=== PATIENT | male | born 1970 | race Caucasian/White ===

== ENCOUNTER 2016-10-26 15:30 | Emergency (ER) | payer SELFPAY ==
[~2016-10-26] VITALS: Ht 180.3 cm; Wt 105.0 kg
[~2016-10-26 15:30] MED LIST: AUGM875T PO; IBUP600 PO; NOVONP2 SQ; NOVORP2 SQ
[2016-10-26 15:32] VITALS: BP 140/91; PULSE 104; RESP 16; TEMP 98.4; O2SAT 98
[2016-10-26] MEDS ORDERED: SODIUM CHLORIDE 0.9% FLUSH 10 ML FLUSH IVF PRN (16:00)
[2016-10-26] MEDS ORDERED: ACETAMINOPHEN 325 MG TAB PO ONE (16:00)
[2016-10-26] MEDS ORDERED: diphenhydrAMINE HCL 50 MG/ML VIAL IVP ONE (16:00)
[2016-10-26] MEDS ORDERED: PROCHLORPERAZINE INJ 10 MG/2 ML VIAL IVP ONE (16:00)
[2016-10-26] MEDS ORDERED: NOVONP2 SQ (16:01)
[2016-10-26] MEDS ORDERED: PROM25TA10 PO (17:03)
--- NOTE | 2016-10-26 17:03 | PD ---
HPI Chief Complaint: Headache Time Seen by Provider: 15:54 Travel History International Travel<30 days: No Contact w/Intl Traveler<30days: No Traveled to known affect area: No History of Present Illness HPI 46 yo M hx migraines and glaucoma arrives complaining of headache for approximately 5 hours, onset gradual, timing constant. Cephalgia location: mid anterior scalp and R eye. Severity: severe. Associated symptoms include vomiting. Pain is similar to prior episodes however more severe than usual. No stiffness of the neck. No fever. PFSH Past Medical History Asthma: Yes ( A CHILD) Autoimmune Disease: No Anxiety: Yes Depression: Yes Cardiovascular Problems: No Chest Pain: Yes (05/28/13) Diabetes: Yes Patient Takes Glucophage: No Diminished Hearing: No Endocrine: Yes Gastrointestinal Disorders: Yes (occ reflux) Genitourinary: No Headaches: Yes (SINUS HEADACHES) Hepatitis: No Hiatal Hernia: No Hypertension: Yes Immune Disorder: No Implanted Vascular Access Dvce: No Kidney Stones: Yes Musculoskeletal: Yes ( neuropathy) Neurologic: Yes Psychiatric: No Reproductive: Yes (scrotal lesions) Respiratory: Yes (asthma as a child) Integumentary: Yes (Cellulitis) Immunizations Current: Yes Thyroid Disease: No Influenza Vaccination: No Past Surgical History Insulin Pump: No Joint Replacement: No Pacemaker: No Other Surgery: Yes Social History Alcohol Use: No Tobacco Use: No Substance Use: No Allergies-Medications (Allergen,Severity, Reaction): Coded Allergies: erythromycin base (Unverified Allergy, Severe, RASH, 09/29/16) shortness of breath latex (Unverified Allergy, Severe, RASH, 09/29/16) shortness of breath Reported Meds & Prescriptions Reported Meds & Active Scripts Active Phenergan (Promethazine HCl) 25 Mg Tablet 25 Mg PO Q6H PRN Reported Novolin N Inj (Insulin Human NPH) 1,000 Unit/10 Ml Vial 25 Units SQ BID Review of Systems Except as stated in HPI: all other systems reviewed are Neg Physical Exam Narrative GENERAL: 46 yo M, WNWD, mild distress 2/2 pain SKIN: Warm and dry. HEAD: Atraumatic. Normocephalic. EYES: R pupil fixed dilated, cloudy. L pupil reactive to light. ENT: No nasal bleeding or discharge. Mucous membranes pink and moist. NECK: Trachea midline. No JVD. NEUROLOGICAL: Awake and alert. No obvious cranial nerve deficits. Motor grossly within normal limits. Five out of 5 muscle strength in the arms and legs. Normal speech. PSYCHIATRIC: Appropriate mood and affect; insight and judgment normal. Data Data Last Documented VS Vital Signs Date Time Temp Pulse Resp B/P (MAP) Pulse Ox O2 Delivery O2 Flow Rate FiO2 10/26/16 17:52 10/26/16 15:32 98.4 104 16 98 VS reviewed Orders Orders Ecg Monitoring (10/26/16 15:54) Iv Access Insert/Monitor (10/26/16 15:54) Oximetry (10/26/16 15:54) Sodium Chloride 0.9% Flush (Ns Flush) (10/26/16 16:00) Acetaminophen (Tylenol) (10/26/16 16:00) Prochlorperazine Inj (Compazine Inj) (10/26/16 16:00) Diphenhydramine Inj (Benadryl Inj) (10/26/16 16:00) Promethazine (Phenergan) (10/26/16 17:30) MDM Medical Decision Making Medical Screen Exam Complete: Yes Emergency Medical Condition: Yes Medical Record Reviewed: Yes Differential Diagnosis SAH, aneurysm, migraine, glaucoma, cavernous sinus thrombosis Narrative Course Abortive therapy given with good effect. Pt ready for discharge. Diagnosis Primary Impression: Cephalgia Qualified Codes: R51 - Headache Referrals: Primary Care Physician 2 days Additional Instructions: You have a choice when it comes to health care, and we are glad that you chose [facility]. Hopefully, we have met your expectations on today's visit. You are welcome to return to [facility] at any time, as we are committed to meeting the health care needs of our community. Med/Other Pt SpecificInfo: Prescription(s) given Scripts Promethazine (Phenergan) 25 Mg Tablet 25 MG PO Q6H Y for NAUSEA OR VOMITING, #15 TAB 0 Refills Prov: Vince Durán MD 10/26/16 Disposition: 01 DISCHARGE HOME Condition: Stable Vince Durán MD Oct 26, 2016 17:03
[2016-10-26] MEDS ORDERED: PROMETHAZINE HCL 25 MG TAB PO ONE (17:30)
== END 2016-10-26 17:52 | disposition home or self-care (01) ==
LOC: NEPK 15:30
DX: R51 Headache (principal); J45.909 Unspecified asthma, uncomplicated; F41.9 Anxiety disorder, unspecified; F32.9 Major depressive disorder, single episode, unspecified; K21.9 Gastro-esophageal reflux disease without esophagitis; I10 Essential (primary) hypertension; E11.40 Type 2 diabetes mellitus with diabetic neuropathy, unspecified; H40.9 Unspecified glaucoma; Z79.4 Long term (current) use of insulin
CPT/HCPCS: 96374; 96375; 99284; J0780; J1200; Q0169

== ENCOUNTER 2017-01-24 08:13 | Emergency (ER) | payer SELFPAY ==
[~2017-01-24] VITALS: Ht 180.3 cm; Wt 105.0 kg
[~2017-01-24 08:13] MED LIST changes: -AUGM875T PO; -IBUP600 PO; -NOVORP2 SQ; +PROM25TA10 PO
[2017-01-24 08:17] VITALS: BP 180/111; PULSE 96; RESP 14; TEMP 98.7; O2SAT 99
[2017-01-24 08:35] VITALS: BP 181/98; PULSE 93
[2017-01-24] MEDS ORDERED: CEPHALEXIN MONOHYDRATE 500 MG CAP PO ONE (08:45)
[2017-01-24] MEDS ORDERED: CLINDAMYCIN INJ 900 MG in SODIUM CHLORIDE 0.9% INJ 100 ML IV ONE (08:45)
[2017-01-24] MEDS ORDERED: SULFAMETHOXAZOLE-TRIMETHOPRIM DS 800-160 MG TAB PO ONE (08:45)
--- NOTE | 2017-01-24 08:58 | RADRPT ---
EXAM DATE/TIME: 01/24/2017 08:44 [facility] COMPARISON: No previous studies available for comparison. INDICATIONS : Possible foot infestion. Patient states a sore appeared yesterday on the top of his foot. MEDICAL HISTORY : Diabetes mellitus type II. Gastroesophageal reflux disease. Neuropathy. SURGICAL HISTORY : None. ENCOUNTER: Initial ACUITY: 2 days PAIN SCORE: 0/10 LOCATION: Right foot. FINDINGS: Lateral view shows swelling and ulceration of the soft tissues dorsally in the region of the midfoot and forefoot. I don't see a radiopaque foreign body. No fracture, subluxation or perceptible bone babatunde truction. Small enthesophyte seen of the Achilles insertion. CONCLUSION: Dorsal soft tissue swelling and apparent ulceration without acute bony abnormality. Mikey Garrett MD on January 24, 2017 at 8:56 Board Certified Radiologist. This report was verified electronically.
[2017-01-24] MEDS ORDERED: CLINDAMYCIN 900 MG/NS PREMIX 50 ML IV ONE (09:00)
[2017-01-24 09:13] LABS: AUTOMATED NEUTROPHIL # 4.6 TH/MM3 (1.8-7.7); BASOPHIL # 0.1 TH/MM3 (0-0.2); BASOPHIL % 1.2 % (0.0-2.0); EOSINOPHIL # 0.4 TH/MM3 (0-0.4); EOSINOPHIL % 5.8 % (0.0-4.0); HEMATOCRIT 42.8 % (39.0-51.0); HEMO FLAGS DIFF FINAL; LYMPH % 22.2 % (9.0-44.0); LYMPHOCYTE # 1.6 TH/MM3 (1.0-4.8); MEAN CELL VOLUME 90.4 FL (80.0-100.0); MEAN CORPUSCULAR HEMOGLOBIN 31.1 PG (27.0-34.0); MEAN CORPUSCULAR HGB CONC 34.4 % (32.0-36.0); NEUT % 62.8 % (16.0-70.0); PLATELET COUNT 176 TH/MM3 (150-450); RED BLOOD COUNT 4.74 MIL/MM3 (4.50-5.90); RED CELL DISTRIBUTION WIDTH 13.4 % (11.6-17.2); WHITE BLOOD COUNT 7.3 TH/MM3 (4.0-11.0)
[2017-01-24 09:29] LABS: BICARBONATE 20.8 MEQ/L (21.0-32.0); POTASSIUM 4.4 MEQ/L (3.5-5.1)
[2017-01-24] MEDS ORDERED: INSULIN HUMAN REGULAR 1,000 UNITS/10 ML VIAL IV PUSH ONE (09:45)
[2017-01-24] MEDS ORDERED: SODIUM CHLOR 0.9% 1000 ML INJ 1,000 ML IV ONE ×2 (09:45)
[2017-01-24] MEDS ORDERED: CEPH-460 PO (10:02)
[2017-01-24] MEDS ORDERED: BACT800T5 PO (10:02)
--- NOTE | 2017-01-24 10:03 | PD ---
HPI Chief Complaint: Skin Problem Time Seen by Provider: 08:23 Travel History International Travel<30 days: No Contact w/Intl Traveler<30days: No Traveled to known affect area: No History of Present Illness HPI 46-year-old male history of diabetes arrives complaining of a rash overlying the dorsum of the right foot. He noticed minimal erythema 2 days ago and worsening erythema last night and then fairly marked skin changes this morning prompting the ER evaluation. He reports baseline polyuria polydipsia due to noncompliance with insulin due to lack of insurance/follow-up. He has no fever. 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 PFSH Past Medical History Asthma: Yes ( A CHILD) Autoimmune Disease: No Anxiety: Yes Depression: Yes Cardiovascular Problems: No Chest Pain: Yes (05/28/13) Diabetes: Yes Patient Takes Glucophage: No Diminished Hearing: No Endocrine: Yes Gastrointestinal Disorders: Yes (occ reflux) Genitourinary: No Headaches: Yes (SINUS HEADACHES) Hepatitis: No Hiatal Hernia: No Hypertension: Yes Immune Disorder: No Implanted Vascular Access Dvce: No Kidney Stones: Yes Musculoskeletal: Yes ( neuropathy) Neurologic: Yes Psychiatric: No Reproductive: Yes (scrotal lesions) Respiratory: Yes (asthma as a child) Integumentary: Yes (Cellulitis) Immunizations Current: Yes Thyroid Disease: No Influenza Vaccination: No Past Surgical History Insulin Pump: No Joint Replacement: No Pacemaker: No Other Surgery: Yes (debridment) Social History Alcohol Use: No Tobacco Use: No Substance Use: No Allergies-Medications (Allergen,Severity, Reaction): Coded Allergies: erythromycin base (Unverified Allergy, Severe, RASH, 01/24/17) shortness of breath latex (Unverified Allergy, Severe, RASH, 01/24/17) shortness of breath Reported Meds & Prescriptions Reported Meds & Active Scripts Active No Active Prescriptions or Reported Medications Review of Systems Except as stated in HPI: all other systems reviewed are Neg General / Constitutional: No: Fever Physical Exam Narrative GENERAL: 46-year-old male well-nourished well-developed SKIN: Warm and dry. Approximately 10 cm x 5 cm of erythema with some ulceration overlying the dorsum of the right foot. No crepitus. HEAD: Atraumatic. Normocephalic. EYES: Pupils equal and round. No scleral icterus. No injection or drainage. ENT: No nasal bleeding or discharge. Mucous membranes pink and moist. NECK: Trachea midline. No JVD. CARDIOVASCULAR: Regular rate and rhythm. 2+ dorsalis pedis bilaterally. RESPIRATORY: No accessory muscle use. Clear to auscultation. Breath sounds equal bilaterally. GASTROINTESTINAL: Abdomen soft, non-tender, nondistended. Hepatic and splenic margins not palpable. MUSCULOSKELETAL: Extremities without clubbing, cyanosis, or edema. No obvious deformities. NEUROLOGICAL: Awake and alert. No obvious cranial nerve deficits. Motor grossly within normal limits. Five out of 5 muscle strength in the arms and legs. Normal speech. PSYCHIATRIC: Appropriate mood and affect; insight and judgment normal. Data Data Last Documented VS Vital Signs Date Time Temp Pulse Resp B/P (MAP) Pulse Ox O2 Delivery O2 Flow Rate FiO2 01/24/17 08:35 93 181/98 (125) 01/24/17 08:17 98.7 14 99 Vital signs reviewed Orders Orders Basic Metabolic Panel (Bmp) (01/24/17 08:31) Complete Blood Count With Diff (01/24/17 08:31) Wound Culture And Gram Stain (01/24/17 08:31) Iv Access Insert/Monitor (01/24/17 08:31) Foot, Limited (2vws) (01/24/17 ) Sulfamet-Trimeth Ds 800-160 Mg (Bactrim (01/24/17 08:45) Cephalexin (Keflex) (01/24/17 08:45) Clindamycin 900 Mg/Ns Premix (Cleocin 90 (01/24/17 09:00) Sodium Chlor 0.9% 1000 Ml Inj (Ns 1000 M (01/24/17 09:45) Sodium Chlor 0.9% 1000 Ml Inj (Ns 1000 M (01/24/17 09:45) Insulin Human Regular Inj (Novolin R Inj (01/24/17 09:45) Labs Laboratory Tests Test 01/24/17 08:45 White Blood Count 7.3 TH/MM3 Red Blood Count 4.74 MIL/MM3 Hemoglobin 14.8 GM/DL Hematocrit 42.8 % Mean Corpuscular Volume 90.4 FL Mean Corpuscular Hemoglobin 31.1 PG Mean Corpuscular Hemoglobin Concent 34.4 % Red Cell Distribution Width 13.4 % Platelet Count 176 TH/MM3 Mean Platelet Volume 10.4 FL Neutrophils (%) (Auto) 62.8 % Lymphocytes (%) (Auto) 22.2 % Monocytes (%) (Auto) 8.0 % Eosinophils (%) (Auto) 5.8 % Basophils (%) (Auto) 1.2 % Neutrophils # (Auto) 4.6 TH/MM3 Lymphocytes # (Auto) 1.6 TH/MM3 Monocytes # (Auto) 0.6 TH/MM3 Eosinophils # (Auto) 0.4 TH/MM3 Basophils # (Auto) 0.1 TH/MM3 CBC Comment DIFF FINAL Differential Comment Blood Urea Nitrogen 18 MG/DL Creatinine 0.77 MG/DL Random Glucose 425 MG/DL Calcium Level 8.4 MG/DL Sodium Level 134 MEQ/L Potassium Level 4.4 MEQ/L Chloride Level 103 MEQ/L Carbon Dioxide Level 20.8 MEQ/L Anion Gap 10 MEQ/L Estimat Glomerular Filtration Rate 109 ML/MIN MDM Medical Decision Making Medical Screen Exam Complete: Yes Emergency Medical Condition: Yes Medical Record Reviewed: Yes Differential Diagnosis Cellulitis, abscess, necrotizing fasciitis, hyperglycemia Narrative Course CBC & BMP Diagram 01/24/17 08:45 Calcium Level 8.4 L Last 24 hours Impressions Foot X-Ray 01/24/17 0000 Signed Impressions: Service Date/Time: Tuesday, January 24, 2017 08:44 - CONCLUSION: Dorsal soft tissue swelling and apparent ulceration without acute bony abnormality. Mikey Garrett MD Patient has fairly impressive cellulitis of the right foot over the dorsal aspect. No evidence of abscess or necrotizing fasciitis. Patient will receive Bactrim and Keflex. Blood glucose is quite high at 425. 2 L IV saline followed by insulin finger stick recheck with plan discharge thereafter. Diagnosis Primary Impression: Diabetes Qualified Codes: E11.628 - Type 2 diabetes mellitus with other skin complications Additional Impressions: Peripheral neuropathy Qualified Codes: G62.9 - Polyneuropathy, unspecified Cellulitis of foot, right Referrals: [facility] 2 days Med/Other Pt SpecificInfo: Prescription(s) given Scripts Cephalexin (Keflex) 500 Mg Cap 500 MG PO Q8H for Infection, #30 CAP 0 Refills Prov: Vince Durán MD 01/24/17 Sulfamethoxazole-Trimethoprim (Bactrim DS) 800-160 Mg Tab 1 TAB PO BID for Infection, #20 TAB 0 Refills Prov: Vince Durán MD 01/24/17 Disposition: 01 DISCHARGE HOME Condition: Stable Vince Durán MD Jan 24, 2017 10:03
== END 2017-01-24 11:45 | disposition home or self-care (01) ==
LOC: NEPC 08:13
DX: E11.42 Type 2 diabetes mellitus with diabetic polyneuropathy (principal); L03.115 Cellulitis of right lower limb; J45.909 Unspecified asthma, uncomplicated; I10 Essential (primary) hypertension; K21.9 Gastro-esophageal reflux disease without esophagitis; F41.9 Anxiety disorder, unspecified; F32.9 Major depressive disorder, single episode, unspecified; Z87.442 Personal history of urinary calculi; Z88.1 Allergy status to other antibiotic agents
CPT/HCPCS: 73620; 80048; 85025; 86403; 87070; 96361; 96365; 96375; 99284; J1815; J7030

== ENCOUNTER 2017-02-23 12:06 | Emergency (ER) | payer SELFPAY ==
[~2017-02-23 12:06] MED LIST changes: +BACT800T5 PO; +CEPH-460 PO; -NOVONP2 SQ; -PROM25TA10 PO
[2017-02-23 12:09] VITALS: BP 165/83; PULSE 119; RESP 12; TEMP 98.7; O2SAT 95
--- NOTE | 2017-02-23 13:56 | PD ---
HPI Chief Complaint: Skin Problem Time Seen by Provider: 13:33 Travel History International Travel<30 days: No Contact w/Intl Traveler<30days: No Traveled to known affect area: No History of Present Illness HPI 46-year-old diabetic male presents to the ED for evaluation of 4 day history of pain and swelling of a known sebaceous cyst on the posterior aspect of the neck. Pain is rated at 4/10, described as constant, worsened by moving the neck. No alleviating factors reported. He denies fevers, chills, nausea, vomiting, headaches, difficulties with ROM of the neck. He states that he was recently treated for a bout of cellulitis with Bactrim and Keflex. He states that this arose about a week after that. He denies history of MRSA. No treatment attempt at home. PFSH Past Medical History Asthma: Yes ( A CHILD) Autoimmune Disease: No Anxiety: Yes Depression: Yes Cardiovascular Problems: No Chest Pain: Yes (05/28/13) Diabetes: Yes Patient Takes Glucophage: No Diminished Hearing: No Endocrine: Yes Gastrointestinal Disorders: Yes (occ reflux) Genitourinary: No Headaches: Yes (SINUS HEADACHES) Hepatitis: No Hiatal Hernia: No Hypertension: Yes Immune Disorder: No Implanted Vascular Access Dvce: No Kidney Stones: Yes Musculoskeletal: Yes ( neuropathy) Neurologic: Yes Psychiatric: No Reproductive: Yes (scrotal lesions) Respiratory: Yes (asthma as a child) Integumentary: Yes (Cellulitis) Immunizations Current: Yes Thyroid Disease: No Tetanus Vaccination: < 5 Years Past Surgical History Insulin Pump: No Joint Replacement: No Pacemaker: No Other Surgery: Yes (debridment) Social History Alcohol Use: No Tobacco Use: No Substance Use: No Allergies-Medications (Allergen,Severity, Reaction): Coded Allergies: erythromycin base (Unverified Allergy, Severe, RASH, 02/23/17) shortness of breath latex (Unverified Allergy, Severe, RASH, 02/23/17) shortness of breath Reported Meds & Prescriptions Reported Meds & Active Scripts Active Keflex (Cephalexin) 500 Mg Cap 500 Mg PO Q8H Bactrim DS (Sulfamethoxazole-Trimethoprim) 800-160 Mg Tab 1 Tab PO BID Review of Systems Except as stated in HPI: all other systems reviewed are Neg Physical Exam Narrative GENERAL: Well-nourished, well-developed patient. SKIN: Focused skin assessment warm/dry. SKIN: There is an indurated area in the right posterior neck which measures about 2 cm in diameter. It is fluctuant but there is no pointing or drainage. There is a zone of inflammation around it but no lymphangitis. HEAD: Normocephalic. EYES: No scleral icterus. No injection or drainage. NECK: Supple, trachea midline. No JVD or lymphadenopathy. CARDIOVASCULAR: Regular rate and rhythm without murmurs, gallops, or rubs. RESPIRATORY: Breath sounds equal bilaterally. No accessory muscle use. GASTROINTESTINAL: Abdomen soft, non-tender, nondistended. MUSCULOSKELETAL: No cyanosis, or edema. BACK: Nontender without obvious deformity. No CVA tenderness. Data Data Last Documented VS Vital Signs Date Time Temp Pulse Resp B/P (MAP) Pulse Ox O2 Delivery O2 Flow Rate FiO2 02/23/17 14:42 02/23/17 14:33 109 18 97 Room Air 02/23/17 12:09 98.7 Orders Orders Abscess Culture And Gram Stain (02/23/17 13:52) Lidocaine 1% Inj (Xylocaine 1% Inj) (02/23/17 14:30) Ed Discharge Order (02/23/17 14:58) [facility] Medical Decision Making Medical Screen Exam Complete: Yes Emergency Medical Condition: Yes Differential Diagnosis Infected sebaceous cyst versus abscess versus sialitis versus other Narrative Course 46-year-old diabetic male presents to the ED for evaluation of 4 day history of pain and swelling of a known sebaceous cyst on the posterior aspect of the neck. He denies fevers, chills, nausea, vomiting, headaches, difficulties with ROM of the neck. He states that this arose about a week after that. He denies history of MRSA. Patient is tachycardic on presentation. Physical exam reveals infected sebaceous cyst of the right posterior neck. Abscess I&D was performed. Please see my procedure note for details. On recheck heart rate 109. Patient states that he has white coat syndrome and heart rate is regularly over 100 in medical offices. The patient was prescribed Bactrim and Keflex. He was provided detailed wound instructions, instructed to take every pill of the antibiotic until they are all gone, return to the ED in 2 days for packing removal and wound recheck. He indicated understanding of these instructions. He is agreeable the care plan. He is stable and discharged home. Procedures Procedure Narrative INCISION AND DRAINAGE OF ABSCESS: The area was prepped and was sterilely draped. A subcutaneous wheal of 1 % Xylocaine with a total number 3 mL was used to anesthetize the area properly. A number 11 scalpel was used to make a 1 -cm incision across the area of the abscess. The abscess was drained, complex loculations were broken down, and irrigated with normal saline. Cultures were obtained. Quarter inch iodoform packing was placed in the wound. Sterile dressing applied. Patient advised to have packing removed in two days. Diagnosis Primary Impression: Infected sebaceous cyst of skin Referrals: [facility] Patient Instructions: Abscess (GEN), General Instructions Additional Instructions: Rest, hydrate. Do not change the dressing for 24-48 hours. Return to the ED for packing removal and wound recheck in 48 hours. After that you may bathe normally. Do not submerge the wound. After bathing pat of wound dry. Allow the wound to air dry for 10-15 minutes. Apply a thin layer of antibiotic ointment and a clean, dry dressing. Take the antibiotics as they are prescribed, even if your symptoms resolve. Utilize [id number] pain medications, as described on the label, as needed. Follow-up with a lap welder for definitive treatment. Return to the ED for any urgent or emergent medical condition. Med/Other Pt SpecificInfo: Prescription(s) given Scripts Cephalexin (Keflex) 500 Mg Cap 500 MG PO Q8H for Infection, #30 CAP 0 Refills Prov: Akilah Bailey MD 02/23/17 Sulfamethoxazole-Trimethoprim (Bactrim DS) 800-160 Mg Tab 1 TAB PO BID for Infection, #20 TAB 0 Refills Prov: Akilah Bailey MD 02/23/17 Disposition: 01 DISCHARGE HOME Condition: Stable Kiah Dash Feb 23, 2017 13:56
[2017-02-23] MEDS ORDERED: CEPH-460 PO (13:57)
[2017-02-23] MEDS ORDERED: BACT800T5 PO (13:57)
[2017-02-23] MEDS ORDERED: LIDOCAINE HCL 1% 50 ML VIAL INFIL ONE (14:00)
[2017-02-23] MEDS ORDERED: LIDOCAINE HCL 1% 20 ML VIAL INFIL ONE (14:30)
[2017-02-23 14:33] VITALS: PULSE 109; RESP 18; O2SAT 97
== END 2017-02-23 15:00 | disposition home or self-care (01) ==
LOC: NEPA 12:06
DX: L72.3 Sebaceous cyst (principal); L08.9 Local infection of the skin and subcutaneous tissue, unspecified; E11.9 Type 2 diabetes mellitus without complications; I10 Essential (primary) hypertension
CPT/HCPCS: 10060; 10061; 86403; 87070

== ENCOUNTER 2017-03-03 17:21 | Observation (INO) | payer SELFPAY ==
[~2017-03-03] VITALS: Ht 180.3 cm; Wt 108.6 kg
[2017-03-03 17:22] VITALS: BP 181/106; PULSE 110; RESP 18; TEMP 98.2; O2SAT 98
--- NOTE | 2017-03-03 18:12 | RADRPT ---
EXAM DATE/TIME: 03/03/2017 17:57 [facility] COMPARISON: No previous studies available for comparison. INDICATIONS : Palpitations, dizziness. MEDICAL HISTORY : None. SURGICAL HISTORY : None. ENCOUNTER: Initial ACUITY: 4 - 6 days PAIN SCORE: 0/10 LOCATION: Bilateral chest FINDINGS: PA and lateral views of the chest demonstrate the lungs to be symmetrically aerated without evidence of mass, infiltrate or effusion. The cardiomediastinal contours are unremarkable. Osseous structure s are intact. CONCLUSION: Normal examination. Melecio García Jr., MD on March 03, 2017 at 18:08 Board Certified Radiologist. This report was verified electronically.
[2017-03-03 19:04] LABS: BILIRUBIN, URINE NEG (NEG); BLOOD, URINE TRACE (NEG); GLUCOSE,URINE 1000 mg/dL (NEG); KETONE, URINE 80 mg/dL (NEG); NITRITE,URINE NEG (NEG); PH, URINE 5.5 (5.0-8.5); URINE COLOR LIGHT-YELLOW (YELLW/STRAW); URINE LEUKOCYTE ESTERASE NEG (NEG)
[2017-03-03 19:15] VITALS: BP 153/95; PULSE 99; RESP 18; O2SAT 98
[2017-03-03 19:26] LABS: ALBUMIN 3.5 GM/DL (3.4-5.0); ALKALINE PHOSPHATASE 119 U/L (45-117); ALT (GPT) 25 U/L (12-78); AST (GOT) 13 U/L (15-37); BICARBONATE 23.2 MEQ/L (21.0-32.0); BLOOD UREA NITROGEN 12 MG/DL (7-18); CALCIUM 9.3 MG/DL (8.5-10.1); CHLORIDE 102 MEQ/L (98-107); CREATININE 0.72 MG/DL (0.60-1.30); GLOMERULAR FILTRATION RATE 118 ML/MIN (>89); MAGNESIUM 2.2 MG/DL (1.5-2.5); SODIUM (NA) 134 MEQ/L (136-145); TOTAL BILIRUBIN ADULT 0.8 MG/DL (0.2-1.0); TROPONIN I 0.03 NG/ML (0.02-0.05)
[2017-03-03 19:28] LABS: GLUCOSE,RANDOM 405 MG/DL (74-106)
[2017-03-03] MEDS ORDERED: SODIUM CHLOR 0.9% 1000 ML INJ 1,000 ML IV ONE (19:30)
[2017-03-03 19:44] LABS: AUTOMATED NEUTROPHIL # 4.3 TH/MM3 (1.8-7.7); BASOPHIL # 0.1 TH/MM3 (0-0.2); BASOPHIL % 1.3 % (0.0-2.0); EOSINOPHIL # 0.5 TH/MM3 (0-0.4); EOSINOPHIL % 7.1 % (0.0-4.0); HEMATOCRIT 42.8 % (39.0-51.0); HEMOGLOBIN 14.6 GM/DL (13.0-17.0); LYMPH % 19.5 % (9.0-44.0); LYMPHOCYTE # 1.3 TH/MM3 (1.0-4.8); MEAN CELL VOLUME 89.7 FL (80.0-100.0); MEAN CORPUSCULAR HEMOGLOBIN 30.6 PG (27.0-34.0); MEAN CORPUSCULAR HGB CONC 34.1 % (32.0-36.0); MEAN PLATELET VOLUME 9.9 FL (7.0-11.0); MONO % 8.3 % (0.0-8.0); MONOCYTE # 0.6 TH/MM3 (0-0.9); NEUT % 63.8 % (16.0-70.0); PLATELET COUNT 222 TH/MM3 (150-450); RED BLOOD COUNT 4.77 MIL/MM3 (4.50-5.90); RED CELL DISTRIBUTION WIDTH 13.2 % (11.6-17.2); WHITE BLOOD COUNT 6.8 TH/MM3 (4.0-11.0)
[2017-03-03] MEDS ORDERED: MECLIZINE HCL 25 MG TAB PO ONE (20:00)
[2017-03-03] MEDS ORDERED: NOVONP2 SQ (20:27)
[2017-03-03] MEDS ORDERED: LACTCAP8 PO (20:27)
[2017-03-03] MEDS ORDERED: NOVORP2 SQ ×2 (20:27)
[2017-03-03] MEDS ORDERED: INSULIN HUMAN REGULAR 1,000 UNITS/10 ML VIAL IV PUSH ONE (20:30)
--- NOTE | 2017-03-03 20:30 | RADRPT ---
EXAM DATE/TIME: 03/03/2017 19:57 [facility] COMPARISON: CT BRAIN W/O CONTRAST, June 06, 2012, 12:23. INDICATIONS : Dizziness. RADIATION DOSE: 56.35 CTDIvol (mGy) MEDICAL HISTORY : Hypertension. Diabetes. SURGICAL HISTORY : None. ENCOUNTER: Initial ACUITY: 1 day PAIN SCALE: 0/10 LOCATION: cranial TECHNIQUE: Multiple contiguous axial images were obtained of the head. Using automated exposure control and adj ustment of the mA and/or kV according to patient size, radiation dose was kept as low as reasonably a chievable to obtain optimal diagnostic quality images. DICOM format image data is available electro nically for review and comparison. FINDINGS: CEREBRUM: The ventricles are normal for age. No evidence of midline shift, mass lesion, hemorrhage or acute in farction. No extra-axial fluid collections are seen. POSTERIOR FOSSA: The cerebellum and brainstem are intact. The 4th ventricle is midline. The cerebellopontine angle i s unremarkable. EXTRACRANIAL: The visualized portion of the orbits is intact. SKULL: The calvaria is intact. No evidence of skull fracture. CONCLUSION: No acute disease. Melecio García Jr., MD on March 03, 2017 at 20:26 Board Certified Radiologist. This report was verified electronically.
[2017-03-03] MEDS ORDERED: MECL-62 PO (21:31)
--- NOTE | 2017-03-03 21:32 | PD ---
HPI Chief Complaint: Dizziness Time Seen by Provider: 19:21 Travel History International Travel<30 days: No Contact w/Intl Traveler<30days: No Traveled to known affect area: No History of Present Illness HPI Patient is a 46-year-old male coming in complaining of dizziness weakness cough shakes and chills generalized malaise for 3 days. Patient patient is an insulin dependent diabetic who has been out of his insulin for over months due to financial problems. 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 All due to lack of insurance and lack of money. He is coming in with main complaint of generalized malaise shakes chills and dizziness nasal congestion sore throat. He has not seen another doctor for this and he is not taking any medication for this. Patient was recently in the ER he had an I&D done 20 abscess in the back of his neck for which was on Bactrim for a week he finished that a few days ago the abscesses cleared up PFSH Past Medical History Asthma: Yes ( A CHILD) Autoimmune Disease: No Anxiety: Yes Depression: Yes Cardiovascular Problems: No Chest Pain: Yes (05/28/13) Diabetes: Yes Patient Takes Glucophage: No Diminished Hearing: No Endocrine: Yes Gastrointestinal Disorders: Yes (occ reflux) Genitourinary: No Headaches: Yes (SINUS HEADACHES) Hepatitis: No Hiatal Hernia: No Hypertension: Yes Immune Disorder: No Implanted Vascular Access Dvce: No Kidney Stones: Yes Musculoskeletal: Yes ( neuropathy) Neurologic: Yes Psychiatric: No Reproductive: Yes (scrotal lesions) Respiratory: Yes (asthma as a child) Integumentary: Yes (Cellulitis) Immunizations Current: Yes Thyroid Disease: No Tetanus Vaccination: < 5 Years Influenza Vaccination: No Past Surgical History Insulin Pump: No Joint Replacement: No Pacemaker: No Other Surgery: Yes (debridment) Social History Alcohol Use: No Tobacco Use: No Substance Use: No Allergies-Medications (Allergen,Severity, Reaction): Coded Allergies: erythromycin base (Unverified Allergy, Severe, RASH, 02/23/17) shortness of breath latex (Unverified Allergy, Severe, RASH, 02/23/17) shortness of breath Reported Meds & Prescriptions Reported Meds & Active Scripts Active Meclizine (Meclizine HCl) 25 Mg Tab 25 Mg PO TID PRN Keflex (Cephalexin) 500 Mg Cap 500 Mg PO Q8H Bactrim DS (Sulfamethoxazole-Trimethoprim) 800-160 Mg Tab 1 Tab PO BID Reported Novolin R Inj (Insulin Human Regular) 1,000 Unit/10 Ml Vial 2-10 Units SQ DIRECTED Max dose at bedtime:( )units; sugars less than 150,(0) units; sugars 150-199,(2)unit; sugars 200-249,(4)units; sugars 250-299,(6) units; sugars 300-349,(8)units; sugars equal to or greater than 350,(10)units Novolin R Inj (Insulin Human Regular) 1,000 Unit/10 Ml Vial 20 Units SQ BID Novolin N Inj (Insulin Human NPH) 1,000 Unit/10 Ml Vial 20 Units SQ BID Probiotic (Lactobacillus Acidophilus) 10 Billion Cell Cap 1 Cap PO TIDAC Review of Systems Except as stated in HPI: all other systems reviewed are Neg General / Constitutional: Positive: Chills Musculoskeletal: Positive: Myalgias, Weakness Neurologic: Positive: Dizziness Physical Exam Narrative GENERAL: Patient is nontoxic-appearing awake alert obvious clouding of his right eye SKIN: Warm and dry. HEAD: Atraumatic. Normocephalic. EYES: Pupils equal and round. No scleral icterus. No injection or drainage. Right eye is hazed over with no vision patient reports due to glaucoma untreated ENT: No nasal bleeding or discharge. Mucous membranes pink and moist. NECK: Trachea midline. No JVD. Her neck has a healed abscess area. There is no signs of acute active infection CARDIOVASCULAR: Regular rate and rhythm. EKG is normal sinus rhythm at a rate of 104 RESPIRATORY: No accessory muscle use. Clear to auscultation. Breath sounds equal bilaterally. GASTROINTESTINAL: Abdomen soft, non-tender, nondistended. Hepatic and splenic margins not palpable. MUSCULOSKELETAL: Extremities without clubbing, cyanosis, or edema. No obvious deformities. NEUROLOGICAL: Awake and alert. No obvious cranial nerve deficits. Motor grossly within normal limits. Five out of 5 muscle strength in the arms and legs. Normal speech. PSYCHIATRIC: Appropriate mood and affect; insight and judgment normal. Data Data Last Documented VS Vital Signs Date Time Temp Pulse Resp B/P (MAP) Pulse Ox O2 Delivery O2 Flow Rate FiO2 1/17/18 19:15 99 18 153/95 (114) 98 03/03/17 19:15 Room Air 03/03/17 17:22 98.2 Orders Orders Electrocardiogram (03/03/17 17:42) Complete Blood Count With Diff (03/03/17 17:42) Comprehensive Metabolic Panel (03/03/17 17:42) Magnesium (Mg) (03/03/17 17:42) Ckmb (Isoenzyme) Profile (03/03/17 17:42) Troponin I (03/03/17 17:42) Act Partial Throm Time (Ptt) (03/03/17 17:42) Prothrombin Time / Inr (Pt) (03/03/17 17:42) Urinalysis - C+S If Indicated (03/03/17 17:42) Chest, Pa & Lat (03/03/17 17:42) Ct Brain W/O Iv Contrast(Rout) (03/03/17 17:42) Sodium Chlor 0.9% 1000 Ml Inj (Ns 1000 M (03/03/17 19:30) CKMB (03/03/17 18:45) CKMB% (03/03/17 18:45) Influenzae A/B Antigen (03/03/17 19:56) Group A Rapid Strep Screen (03/03/17 19:56) Meclizine (Antivert) (03/03/17 20:00) Insulin Human Regular Inj (Novolin R Inj (03/03/17 20:30) Strep Culture (Group A) (03/03/17 20:20) Place In Observation (03/03/17 21:33) Activity Bed Rest With Brp (03/03/17 21:33) Vital Signs (Adult) Q4H (03/03/17 21:33) Cardiac Rhythm .As Directed (03/03/17 21:33) Notify Dr: Other .PRN (03/03/17 21:33) Notify Dr. Parameters (03/03/17 21:33) Resp Oxygen Nasal Cannula (03/03/17 ) Ckmb (Isoenzyme) Profile (03/03/17 21:33) Ckmb (Isoenzyme) Profile (03/04/17 00:33) Troponin I (03/03/17 21:33) Troponin I (03/04/17 00:33) Electrocardiogram (03/03/17 21:33) Electrocardiogram (03/04/17 00:33) ^ Obtain (03/03/17 21:33) Sodium Chloride 0.9% Flush (Ns Flush) (03/03/17 21:45) Sodium Chloride 0.9% Flush (Ns Flush) (03/03/17 21:45) Green Building Architect / Telemetry HERMES.[id number] (03/03/17 21:33) Admit Order (Ed Use Only) (03/03/17 21:33) CKMB (03/03/17 22:56) CKMB% (03/03/17 22:56) Labs Laboratory Tests Test 03/03/17 18:45 03/03/17 18:50 White Blood Count 6.8 TH/MM3 Red Blood Count 4.77 MIL/MM3 Hemoglobin 14.6 GM/DL Hematocrit 42.8 % Mean Corpuscular Volume 89.7 FL Mean Corpuscular Hemoglobin 30.6 PG Mean Corpuscular Hemoglobin Concent 34.1 % Red Cell Distribution Width 13.2 % Platelet Count 222 TH/MM3 Mean Platelet Volume 9.9 FL Neutrophils (%) (Auto) 63.8 % Lymphocytes (%) (Auto) 19.5 % Monocytes (%) (Auto) 8.3 % Eosinophils (%) (Auto) 7.1 % Basophils (%) (Auto) 1.3 % Neutrophils # (Auto) 4.3 TH/MM3 Lymphocytes # (Auto) 1.3 TH/MM3 Monocytes # (Auto) 0.6 TH/MM3 Eosinophils # (Auto) 0.5 TH/MM3 Basophils # (Auto) 0.1 TH/MM3 CBC Comment DIFF FINAL Differential Comment Prothrombin Time 10.0 SEC Prothromb Time International Ratio 1.0 RATIO Activated Partial Thromboplast Time 26.6 SEC Blood Urea Nitrogen 12 MG/DL Creatinine 0.72 MG/DL Random Glucose 405 MG/DL Total Protein 8.0 GM/DL Albumin 3.5 GM/DL Calcium Level 9.3 MG/DL Magnesium Level 2.2 MG/DL Alkaline Phosphatase 119 U/L Aspartate Amino Transf (AST/SGOT) 13 U/L Alanine Aminotransferase (ALT/SGPT) 25 U/L Total Bilirubin 0.8 MG/DL Sodium Level 134 MEQ/L Potassium Level 4.1 MEQ/L Chloride Level 102 MEQ/L Carbon Dioxide Level 23.2 MEQ/L Anion Gap 9 MEQ/L Estimat Glomerular Filtration Rate 118 ML/MIN Total Creatine Kinase 236 U/L Creatine Kinase MB 2.1 NG/ML Troponin I 0.03 NG/ML Urine Color LIGHT-YELLOW Urine Turbidity CLEAR Urine pH 5.5 Urine Specific [place] 1.035 Urine Protein TRACE mg/dL Urine Glucose (UA) 1000 mg/dL Urine Ketones 80 mg/dL Urine Occult Blood TRACE Urine Nitrite NEG Urine Bilirubin NEG Urine Urobilinogen LESS THAN 2.0 MG/DL Urine Leukocyte Esterase NEG Urine RBC 2 /hpf Urine WBC LESS THAN 1 /hpf Microscopic Urinalysis Comment CULT NOT INDICATED MDM Medical Decision Making Medical Screen Exam Complete: Yes Emergency Medical Condition: Yes Medical Record Reviewed: Yes Differential Diagnosis Differential diagnosis includes upper respiratory infection viral versus influenza versus strep pharyngitis versus benign positional vertigo due to upper respiratory infection and 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 Patient also may have hyperglycemic related illness as his sugar is 105 on original arrival Narrative Course Patient has an EKG with normal sinus rhythm patient sugar is 105 and is given a liter fluid and 3 units of insulin patient is a CAT scan that is negative she was given meclizine with improvement of his vertigo feeling and he is able to be discharged with close follow-up I will give him as area clinic for being seen as an outpatient since he has no insurance at this time EKG troponin labs are all normal except for the hyperglycemic is treated as well as the possible increased lymph in the semicircular canals meclizine prescription will be given as well. Patient was preparing for discharge. he stood up to go to the bathroom. He said he felt extremely dizzy. His initial troponin is 0.03 which is still negative however it is not undetectable , so I will admit him to the chest pain center. To do serial troponins and stress test in the morning and give him 162 chewable aspirin. And will change my disposition from discharge to admit chest pain center to make sure that this is not cardiac causing his dizziness Diagnosis Primary Impression: Hyperglycemia Additional Impression: Dizziness Admitting Information Admitting Physician Requests: Observation Scripts Meclizine (Meclizine) 25 Mg Tab 25 MG PO TID Y for VERTIGO, #20 TAB 0 Refills Prov: Asaf Astudillo MD 03/03/17 Asaf Astudillo MD Mar 03, 2017 21:32
[2017-03-03 21:38] VITALS: BP 150/90; PULSE 102; RESP 16; O2SAT 98
[2017-03-03] MEDS: SODIUM CHLORIDE 0.9% FLUSH 10 ML FLUSH IV FLUSH SCH (21:39)
[2017-03-03] MEDS ORDERED: SODIUM CHLORIDE 0.9% FLUSH 10 ML FLUSH IV FLUSH PRN (21:45)
[2017-03-03] MEDS ORDERED: ASPIRIN 81 MG CHEW TAB CHEW ONE (22:00)
[2017-03-03 23:00] VITALS: BP 144/84; PULSE 100; RESP 20; TEMP 98.1; O2SAT 100
[2017-03-03 23:05] VITALS: PULSE 103
[2017-03-03 23:28] LABS: TROPONIN I 0.04 NG/ML (0.02-0.05)
[2017-03-04] VITALS (9 sets, daily range): BP systolic 130–150; BP diastolic 68–94; PULSE 93–106; RESP 16–20; TEMP 96.2–98.4; O2SAT 94–98
[2017-03-04 01:29] LABS: TROPONIN I 0.03 NG/ML (0.02-0.05)
[2017-03-04] MEDS ORDERED: DEXTROSE 50% IN WATER 50 ML VIAL(D50) IV PUSH PRN (08:15)
[2017-03-04] MEDS ORDERED: GLUCAGON 1 MG/ML VIAL OTHER PRN (08:15)
[2017-03-04] MEDS: SODIUM CHLORIDE 0.9% FLUSH 10 ML FLUSH IV FLUSH SCH ×2 (08:58→21:45)
--- NOTE | 2017-03-04 10:43 | PD.CARD.PN ---
Subjective Subjective Remarks Patient seen and examined and discussed with PA. He denies any chest pain now or on admission. His issues are diabetes out of control with no insulin at home and no financial help to get any meds or testing material. He has applied for disability and been living on sisters couch. He is blind in one eye and poor vision in the other due to progressive glaucoma also with no ability to buy meds. Otherwise his H&P is as recorded. Objective Medications Current Medications Medications (Trade) Dose Ordered Sig/Judy Route Start Time Stop Time Status Last Admin (NS Flush) 2 ml UNSCH PRN IV FLUSH 03/03/17 21:45 03/03/17 22:45 (NS Flush) 2 ml BID IV FLUSH 03/03/17 21:45 03/04/17 08:58 (NovoLOG SUPPLEMENTAL SCALE) 1 ACHS SLIDING SCALE SQ 03/04/17 12:00 (D50w (Vial) Inj) 50 ml UNSCH PRN IV PUSH 03/04/17 08:15 (Glucagon Inj) 1 mg UNSCH PRN OTHER 03/04/17 08:15 Vital Signs / I&O Vital Signs Date Time Temp Pulse Resp B/P (MAP) Pulse Ox O2 Delivery O2 Flow Rate FiO2 03/04/17 08:00 97.8 97 20 145/89 (107) 96 03/04/17 04:00 93 03/04/17 04:00 98.4 101 18 150/81 (104) 97 03/04/17 04:00 Room Air 03/04/17 00:42 101 03/04/17 00:00 97.7 101 18 148/68 (94) 98 03/04/17 00:00 Room Air 03/03/17 23:05 103 03/03/17 23:00 98.1 100 20 144/84 (104) 100 03/03/17 21:38 102 16 150/90 (110) 98 Room Air 03/03/17 19:15 99 18 153/95 (114) 98 03/03/17 19:15 18 100 Room Air 03/03/17 17:22 98.2 110 18 181/106 (131) 98 I/O 03/03/17 03/03/17 03/03/17 03/04/17 03/04/17 03/04/17 07:00 15:00 23:00 07:00 15:00 23:00 Intake Total 1000 ml Balance 1000 ml Intake IV Total 1000 ml Physical Exam HEENT Ears are clear Pupils unequal, right is foggy with no light reflex, left has minimal reflex. EOM grossly intact but seems to have difficulty fixing. Decreased peripheral vision Mouth Poor hygiene but no lesions CV RSR no GRM Abd Soft non-tender with no GR or masses Laboratory Laboratory Tests Test 03/03/17 18:45 03/03/17 18:50 03/03/17 22:56 03/04/17 00:45 White Blood Count 6.8 TH/MM3 Red Blood Count 4.77 MIL/MM3 Hemoglobin 14.6 GM/DL Hematocrit 42.8 % Mean Corpuscular Volume 89.7 FL Mean Corpuscular Hemoglobin 30.6 PG Mean Corpuscular Hemoglobin Concent 34.1 % Red Cell Distribution Width 13.2 % Platelet Count 222 TH/MM3 Mean Platelet Volume 9.9 FL Neutrophils (%) (Auto) 63.8 % Lymphocytes (%) (Auto) 19.5 % Monocytes (%) (Auto) 8.3 % Eosinophils (%) (Auto) 7.1 % Basophils (%) (Auto) 1.3 % Neutrophils # (Auto) 4.3 TH/MM3 Lymphocytes # (Auto) 1.3 TH/MM3 Monocytes # (Auto) 0.6 TH/MM3 Eosinophils # (Auto) 0.5 TH/MM3 Basophils # (Auto) 0.1 TH/MM3 CBC Comment DIFF FINAL Differential Comment Prothrombin Time 10.0 SEC Prothromb Time International Ratio 1.0 RATIO Activated Partial Thromboplast Time 26.6 SEC Blood Urea Nitrogen 12 MG/DL Creatinine 0.72 MG/DL Random Glucose 405 MG/DL Total Protein 8.0 GM/DL Albumin 3.5 GM/DL Calcium Level 9.3 MG/DL Magnesium Level 2.2 MG/DL Alkaline Phosphatase 119 U/L Aspartate Amino Transf (AST/SGOT) 13 U/L Alanine Aminotransferase (ALT/SGPT) 25 U/L Total Bilirubin 0.8 MG/DL Sodium Level 134 MEQ/L Potassium Level 4.1 MEQ/L Chloride Level 102 MEQ/L Carbon Dioxide Level 23.2 MEQ/L Anion Gap 9 MEQ/L Estimat Glomerular Filtration Rate 118 ML/MIN Total Creatine Kinase 236 U/L 216 U/L 261 U/L Creatine Kinase MB 2.1 NG/ML 2.4 NG/ML Troponin I 0.03 NG/ML 0.04 NG/ML 0.03 NG/ML Urine Color LIGHT-YELLOW Urine Turbidity CLEAR Urine pH 5.5 Urine Specific [place] 1.035 Urine Protein TRACE mg/dL Urine Glucose (UA) 1000 mg/dL Urine Ketones 80 mg/dL Urine Occult Blood TRACE Urine Nitrite NEG Urine Bilirubin NEG Urine Urobilinogen LESS THAN 2.0 MG/DL Urine Leukocyte Esterase NEG Urine RBC 2 /hpf Urine WBC LESS THAN 1 /hpf Microscopic Urinalysis Comment CULT NOT INDICATED Imaging Last [address] 03/03/171741 Signed Impressions: Service Date/Time: Friday, March 03, 2017 19:57 - CONCLUSION: No acute disease. Melecio García Jr., MD Chest X-Ray 03/03/171741 Signed Impressions: Service Date/Time: Friday, March 03, 2017 17:57 - CONCLUSION: Normal examination. Melecio García Jr., MD Assessment and Plan Assessment and Plan He has no chest pain whatsoever but does have shoulder neck and head pain which has been chronic (see previous ED reports) Currently his diabetes is OOC and he has no meds, no testing material and no way to obtain them He is not a candidate for further cardiac testing and is not a safe discharge. Code Status Full Discussed Condition With Discussed with PA and with patient. Altaf Coretz MD Mar 04, 2017 10:43
[2017-03-04] MEDS ORDERED: MECLIZINE HCL 25 MG TAB PO PRN (10:45)
[2017-03-04] MEDS: LISINOPRIL 10 MG TAB PO SCH (11:49)
[2017-03-04] MEDS: ATORVASTATIN 20 MG TAB PO SCH (11:49)
[2017-03-04] MEDS: CEPHALEXIN MONOHYDRATE 500 MG CAP PO SCH ×2 (11:49→21:44)
[2017-03-04] MEDS: INSULIN ASPART SUPPLEMENTAL SCALE SQ SCH ×3 (11:50→21:45)
--- NOTE | 2017-03-04 11:51 | HHI.HP ---
HPI Primary Care Physician No Primary Care Physician Chief Complaint Dizziness History of Present Illness This is a 46-year-old male with history of diabetes that presents to ED with a complaint of dizziness and weakness in upper and lower extremities. States this has been ongoing 5 days. Dizziness is described as the room spinning. He states he has fallen several times. Denies having head injury or loss of consciousness. States his right eye has no vision in it which is chronic stating he has glaucoma. Denies chest discomfort. Complains of bilateral shoulder pain which he states has been present for years. He is a diabetic and states he has not had insulin for proximally 4 months. States he's had no insurance her funds to follow-up with the physician and to get refills. Denies seizure activity. Denies fevers or chills however he states he has had a nonproductive cough for the same 5 days. Denies sick contacts. Denies history of CAD. Upon reviewing records he had a nonischemic Lazaro protocol ETT in 2014. Review of Systems General: Patient denies fevers, chills recent, and recent travel HEENT: Patient denies headache, sore throat, difficulty swallowing. States he cannot see anything out of his right eye. This is been chronic. Planes of dizziness. Cardiovascular: Denies chest discomfort as mentioned above. Denies sensation of heart beating rapidly or irregularly. No syncope. Denies diaphoresis. Respiratory: Denies shortness of breath or inspirational chest discomfort. Denies coughing wheezing or hemoptysis. GI: Patient denies nausea, vomiting, diarrhea, abdominal pain, bloody stools. Musculoskeletal: Planes of chronic bilateral shoulder pain, this has not worsened. Patient denies joint edema. Denies calf pain or edema. Neurovascular: Complains of weakness in upper and lower extremities and dizziness. That is described as the room spinning. Denies loss of consciousness. Denies seizure activity. Patient denies numbness, tingling Denies headache. Endocrine: Denies polyuria and polydipsia. Hematologic: Denies easy bruising. Skin: Denies rash or itching. Past Family Social History Allergies: Coded Allergies: erythromycin base (Unverified Allergy, Severe, RASH, 02/23/17) shortness of breath latex (Unverified Allergy, Severe, RASH, 02/23/17) shortness of breath sulfamethoxazole (Verified Allergy, Unknown, 03/04/17) trimethoprim (Verified Allergy, Unknown, 03/04/17) Past Medical History Diabetes with noncompliance. Denies hypertension, hyperlipidemia, and known CAD. Past Surgical History Noncontributory. Reported Medications Reported Meds & Active Scripts Active Meclizine (Meclizine HCl) 25 Mg Tab 25 Mg PO TID PRN Keflex (Cephalexin) 500 Mg Cap 500 Mg PO Q8H Reported Novolin R Inj (Insulin Human Regular) 1,000 Unit/10 Ml Vial 2-10 Units SQ DIRECTED Max dose at bedtime:( )units; sugars less than 150,(0) units; sugars 150-199,(2)unit; sugars 200-249,(4)units; sugars 250-299,(6) units; sugars 300-349,(8)units; sugars equal to or greater than 350,(10)units Novolin R Inj (Insulin Human Regular) 1,000 Unit/10 Ml Vial 20 Units SQ BID Novolin N Inj (Insulin Human NPH) 1,000 Unit/10 Ml Vial 20 Units SQ BID Probiotic (Lactobacillus Acidophilus) 10 Billion Cell Cap 1 Cap PO TIDAC Active Ordered Medications Current Medications Medications (Trade) Dose Ordered Sig/Judy Route Start Time Stop Time Status Last Admin (NS Flush) 2 ml UNSCH PRN IV FLUSH 03/03/17 21:45 03/03/17 22:45 (NS Flush) 2 ml BID IV FLUSH 03/03/17 21:45 03/04/17 08:58 (NovoLOG SUPPLEMENTAL SCALE) 1 ACHS SLIDING SCALE SQ 03/04/17 12:00 (D50w (Vial) Inj) 50 ml UNSCH PRN IV PUSH 03/04/17 08:15 (Glucagon Inj) 1 mg UNSCH PRN OTHER 03/04/17 08:15 (Prinivil) 10 mg DAILY PO 03/04/17 12:00 (Lipitor) 20 mg DAILY PO 03/04/17 12:00 (Keflex) 500 mg Q8H PO 03/04/17 12:00 (Antivert) 25 mg TID PRN PO 03/04/17 10:45 Family History Denies family history of CAD. Social History Does not smoke, drink alcohol, or use illicit drugs. Physical Exam Vital Signs Vital Signs Date Time Temp Pulse Resp B/P (MAP) Pulse Ox O2 Delivery O2 Flow Rate FiO2 03/04/17 08:00 97.8 97 20 145/89 (107) 96 03/04/17 04:00 93 03/04/17 04:00 98.4 101 18 150/81 (104) 97 03/04/17 04:00 Room Air 03/04/17 00:42 101 03/04/17 00:00 97.7 101 18 148/68 (94) 98 03/04/17 00:00 Room Air 03/03/17 23:05 103 03/03/17 23:00 98.1 100 20 144/84 (104) 100 03/03/17 21:38 102 16 150/90 (110) 98 Room Air 03/03/17 19:15 99 18 153/95 (114) 98 03/03/17 19:15 18 100 Room Air 03/03/17 17:22 98.2 110 18 181/106 (131) 98 Physical Exam GENERAL: This is a well-nourished, well-developed patient, in no apparent distress. Patient speaks in clear complete sentences. Patient is pleasant. HEENT: Head is atraumatic and normocephalic. Neck is supple without lymphadenopathy and trachea is midline. No JVD or carotid bruits. Right eye has no light reflex. External auditory canals have mild cerumen buildup the TMs are normal. CARDIOVASCULAR: Regular rate and rhythm without murmurs, gallops, or rubs. RESPIRATORY: Clear to auscultation. Breath sounds equal bilaterally. No wheezes , rales, or rhonchi. Chest wall is nontender. No use of accessory muscles. GASTROINTESTINAL: Abdomen is nontender, nondistended. Abdomen soft. No obvious pulsatile mass or bruit. No CVA tenderness. Strong femoral pulses bilaterally. Normal bowel sounds in all quadrants. MUSCULOSKELETAL: Patient is moving upper and lower extremities freely. No calf tenderness or edema, no Homans sign. Strong pulses in upper and lower extremities. NEUROLOGICAL: Patient is alert and oriented. Cranial nerves 2-12 are grossly intact. No focal deficits and speech is clear. SKIN: No rash and turgor is normal. Laboratory Laboratory Tests Test 03/03/17 18:45 03/03/17 18:50 03/03/17 22:56 03/04/17 00:45 White Blood Count 6.8 Red Blood Count 4.77 Hemoglobin 14.6 Hematocrit 42.8 Mean Corpuscular Volume 89.7 Mean Corpuscular Hemoglobin 30.6 Mean Corpuscular Hemoglobin Concent 34.1 Red Cell Distribution Width 13.2 Platelet Count 222 Mean Platelet Volume 9.9 Neutrophils (%) (Auto) 63.8 Lymphocytes (%) (Auto) 19.5 Monocytes (%) (Auto) 8.3 Eosinophils (%) (Auto) 7.1 Basophils (%) (Auto) 1.3 Neutrophils # (Auto) 4.3 Lymphocytes # (Auto) 1.3 Monocytes # (Auto) 0.6 Eosinophils # (Auto) 0.5 Basophils # (Auto) 0.1 CBC Comment DIFF FINAL Differential Comment Prothrombin Time 10.0 Prothromb Time International Ratio 1.0 Activated Partial Thromboplast Time 26.6 Blood Urea Nitrogen 12 Creatinine 0.72 Random Glucose 405 Total Protein 8.0 Albumin 3.5 Calcium Level 9.3 Magnesium Level 2.2 Alkaline Phosphatase 119 Aspartate Amino Transf (AST/SGOT) 13 Alanine Aminotransferase (ALT/SGPT) 25 Total Bilirubin 0.8 Sodium Level 134 Potassium Level 4.1 Chloride Level 102 Carbon Dioxide Level 23.2 Anion Gap 9 Estimat Glomerular Filtration Rate 118 Total Creatine Kinase 236 216 261 Creatine Kinase MB 2.1 2.4 Troponin I 0.03 0.04 0.03 Urine Color LIGHT-YELLOW Urine Turbidity CLEAR Urine pH 5.5 Urine Specific [place] 1.035 Urine Protein TRACE Urine Glucose (UA) 1000 Urine Ketones 80 Urine Occult Blood TRACE Urine Nitrite NEG Urine Bilirubin NEG Urine Urobilinogen LESS THAN 2.0 Urine Leukocyte Esterase NEG Urine RBC 2 Urine WBC LESS THAN 1 Microscopic Urinalysis Comment CULT NOT INDICATED Date/Time Source Procedure Growth Status 03/03/17 20:20 Throat Group A Streptococcus Screen Pending Received Result Diagram: 03/03/17 1845 03/03/17 184 Imaging Last [address] 03/03/171741 Signed Impressions: Service Date/Time: Friday, March 03, 2017 19:57 - CONCLUSION: No acute disease. Melecio García Jr., MD Chest X-Ray 03/03/171741 Signed Impressions: Service Date/Time: Friday, March 03, 2017 17:57 - CONCLUSION: Normal examination. Melecio García Jr., MD Course EKGs are sinus rhythm without significant ST segment depressions or elevations. Caprini VTE Risk Assessment Caprini VTE Risk Assessment: No/Low Risk (score <= 1) Caprini Risk Assessment Model Point Value = 1 Point Value = 2 Point Value = 3 Point Value = 5 Age 41-60 Minor surgery BMI > 25 kg/m2 Swollen legs Varicose veins or History of unexplained or recurrent spontaneous Oral contraceptives or hormone replacement Sepsis (< 1 month) Serious lung disease, including pneumonia (< 1 month) Abnormal pulmonary function Acute myocardial infarction Congestive heart failure (< 1 month) History of inflammatory bowel disease Medical patient at bed rest Age 61-74 Arthroscopic surgery Major open surgery (> 45 min) Laparoscopic surgery (> 45 min) Malignancy Confined to bed (> 72 hours) Immobilizing plaster cast Central venous access Age >= 75 History of VTE Family history of VTE Factor V Leiden Prothrombin [id number] Lupus anticoagulant Anticardiolipin antibodies Elevated serum homocysteine Heparin-induced thrombocytopenia Other congenital or acquired thrombophilia Stroke (< 1 month) Elective arthroplasty Hip, pelvis, or leg fracture Acute spinal cord injury (< 1 month) Prophylaxis Regimen Total Risk Factor Score Risk Level Prophylaxis Regimen 0-1 Low Early ambulation 2 Moderate Order ONE of the following: *Sequential Compression Device (SCD) *Heparin 5000 units SQ BID 3-4 Higher Order ONE of the following medications: *Heparin 5000 units SQ TID *Enoxaparin/Lovenox 40 mg SQ daily (WT < 150 kg, CrCl > 30 mL/min) *Enoxaparin/Lovenox 30 mg SQ daily (WT < 150 kg, CrCl > 10-29 mL/min) *Enoxaparin/Lovenox 30 mg SQ BID (WT < 150 kg, CrCl > 30 mL/min) AND/OR *Sequential Compression Device (SCD) 5 or more Highest Order ONE of the following medications: *Heparin 5000 units SQ TID (Preferred with Epidurals) *Enoxaparin/Lovenox 40 mg SQ daily (WT < 150 kg, CrCl > 30 mL/min) *Enoxaparin/Lovenox 30 mg SQ daily (WT < 150 kg, CrCl > 10-29 mL/min) *Enoxaparin/Lovenox 30 mg SQ BID (WT < 150 kg, CrCl > 30 mL/min) AND *Sequential Compression Device (SCD) Assessment and Plan Assessment and Plan * Uncontrolled diabetes: Once his medications have been confirmed he'll be resumed. Meantime he'll be on sliding scale insulin coverage and on a diabetic diet. Patient has been seen by Dr. Cortez of cardiology and the chest and center. He has never had discomfort in his chest. There'll be no further cardiac workup at this time. He is complaining of dizziness and weakness in extremities. I discussed this patient with Dr. Bernadine uW who has graciously agreed to accept this patient and continue his workup. With his history of diabetes we'll also start the patient on MICK inhibitor and statin therapy. He will need to have repeat LFTs in a couple weeks to a month. * Dizziness: CT scan had nothing acute. He is on meclizine at this time and further workup and treatment pending Dr. Wu's evaluation. Patient is agreeable to this plan. He stable time. Jeffry Patel Mar 04, 2017 11:51
--- NOTE | 2017-03-04 12:55 | EKG ---
Date Performed: 03/04/2017 Time Performed: 00:41:00 PTAGE: 46 years EKG: Sinus rhythm POSSIBLE INFERIOR MYOCARDIAL INFARCTION BORDERLINE ECG INTERPRETATION BASED ON A DEFAULT AGE OF 40 Y EARS NO SIG CHANGE PREVIOUS TRACING : 03/03/2017 18.45 DOCTOR: Altaf Cortez Interpretating Date/Time 03/04/2017 12:55:05
--- NOTE | 2017-03-04 12:57 | EKG ---
Date Performed: 03/03/2017 Time Performed: 22:51:52 PTAGE: 46 years EKG: Sinus rhythm PROBABLE INFERIOR MYOCARDIAL INFARCTION ABNORMAL ECG NO SIG CHANGE NO PREVIOUS TRACING DOCTOR: Altaf Cortez Interpretating Date/Time 03/04/2017 12:55:33
--- NOTE | 2017-03-04 13:00 | EKG ---
Date Performed: 03/03/2017 Time Performed: 18:45:57 PTAGE: 46 years EKG: SINUS TACHYCARDIA NONSPECIFIC T-WAVE ABNORMALITY ABNORMAL RHYTHM ECG NO SIG CHANGE PREVIOUS TRACING : 03/30/2015 16.30 DOCTOR: Altaf Cortez Interpretating Date/Time 03/04/2017 12:59:15
--- NOTE | 2017-03-04 13:30 | HHI.PR ---
Subjective Remarks Patient presented for dizziness and lightheadedness. Patient stated that he also felt weak because of his dizziness he felt like he could not walk. Patient described dizziness as a room spinning. He stated that he had this happen in the past. He also that he feels lightheaded like he wants to pass out. Denies any chest pain, shortness of breathing,, palpitation. During the interview patient seems very comfortable and does not look like he's passing out, he does state that multiple times. He is also able to have a coherent and normal conversation with everybody. Otherwise most of patient's complaint was about not having insulin for the past few months. He stated that he could not afford it. Patient stated that he is working on disability. Patient stated that he has glaucoma in his right eye and both eyes. Patient also stated that he has severe neuropathy in his legs and arms. He urinates a lot and he knows that is due to his diabetes. Sister and his friends are at the bedside. His sister dated that they have been working on disability had been denied multiple times. His sister said that there is some much that she can do for him. Otherwise during the interview patient is having normal conversations with everybody. All other review system reviewed and negative. Patient initially seen in chest pain center and he was clear. Objective Vitals Vital Signs Date Time Temp Pulse Resp B/P (MAP) Pulse Ox O2 Delivery O2 Flow Rate FiO2 03/04/17 12:00 97.5 102 18 147/82 (103) 96 03/04/17 08:00 97.8 97 20 145/89 (107) 96 03/04/17 04:00 93 03/04/17 04:00 98.4 101 18 150/81 (104) 97 03/04/17 04:00 Room Air 03/04/17 00:42 101 03/04/17 00:00 97.7 101 18 148/68 (94) 98 03/04/17 00:00 Room Air 03/03/17 23:05 103 03/03/17 23:00 98.1 100 20 144/84 (104) 100 03/03/17 21:38 102 16 150/90 (110) 98 Room Air 03/03/17 19:15 99 18 153/95 (114) 98 03/03/17 19:15 18 100 Room Air 03/03/17 17:22 98.2 110 18 181/106 (131 98 I/O 03/03/17 03/03/17 03/03/17 03/04/17 03/04/17 03/04/17 07:00 15:00 23:00 07:00 15:00 23:00 Intake Total 1000 ml Balance 1000 ml Intake IV Total 1000 ml Result Diagram: 03/03/17 1845 03/03/17 1845 Imaging Last Impressions Head CT 03/03/171741 Signed Impressions: Service Date/Time: Friday, March 03, 2017 19:57 - CONCLUSION: No acute disease. Melecio García Jr., MD Chest X-Ray 03/03/171741 Signed Impressions: Service Date/Time: Friday, March 03, 2017 17:57 - CONCLUSION: Normal examination. Melecio García Jr., MD Objective Remarks GENERAL: in NAD SKIN: Right anterior foot with crusted wound. Mild penis around the wound but no cellulitis noted. Decreased sensation of lower extremity and bilateral arms. HEAD: Normocephalic. EYES: No scleral icterus. No injection or drainage. NECK: Supple, trachea midline. No JVD or lymphadenopathy. CARDIOVASCULAR: Regular rate and rhythm without murmurs, gallops, or rubs. RESPIRATORY: Breath sounds equal bilaterally. No accessory muscle use. GASTROINTESTINAL: Abdomen soft, non-tender, nondistended. MUSCULOSKELETAL: No cyanosis, or edema. BACK: Nontender without obvious deformity. No CVA tenderness. Medications and IVs Current Medications Sodium Chloride 1,000 ml @ 999 mls/hr BOLUS ONCE IV Last administered on 03/03at 20:25; Start 03/03/17 at 19:30; Stop 03/03/17 at 20:30; Status DC Meclizine HCl (Antivert) 25 mg ONCE ONCE PO Last administered on 03/03/17at 20: 26; Start 03/03/17 at 20:00; Stop 03/03/17 at 20:01; Status DC Insulin Human Regular (NovoLIN R INJ) 3 units ONCE ONCE IV PUSH Last administered on 03/03/17at 21:19; Start 03/03/17 at 20:30; Stop 03/03/17 at 20:31 ; Status DC Sodium Chloride (NS Flush) 2 ml UNSCH PRN IV FLUSH FLUSH AFTER USING IV ACCESS Last administered on 03/03/17at 22:45; Start 03/03/17 at 21:45 Sodium Chloride (NS Flush) 2 ml BID IV FLUSH Last administered on 03/04/17at 08: 58; Start 03/03/17 at 21:45 Aspirin (Aspirin Chew) 162 mg ONCE ONCE CHEW Last administered on 03/03/17at 22 :44; Start 03/03/17 at 22:00; Stop 03/03/17 at 22:01; Status DC Insulin Aspart (NovoLOG SUPPLEMENTAL SCALE) 1 ACHS SLIDING SCALE SQ Last administered on 03/04/17at 11:50; Start 03/04/17 at 12:00 Dextrose (D50w (Vial) Inj) 50 ml UNSCH PRN IV PUSH HYPOGLYCEMIA-SEE COMMENTS; Start 03/04/17 at 08:15 Glucagon (Glucagon Inj) 1 mg UNSCH PRN OTHER HYPOGLYCEMIA-SEE COMMENTS; Start 03/04/17 at 08:15 Lisinopril (Prinivil) 10 mg DAILY PO Last administered on 03/04/17at 11:49; Start 03/04/17 at 12:00 Atorvastatin Calcium (Lipitor) 20 mg DAILY PO Last administered on 03/04/17at 11 :49; Start 03/04/17 at 12:00 Cephalexin Monohydrate (Keflex) 500 mg Q8H PO Last administered on 03/04/17at 11 :49; Start 03/04/17 at 12:00 Meclizine HCl (Antivert) 25 mg TID PRN PO VERTIGO; Start 03/04/17 at 10:45 A/P Assessment and Plan 46-year-old male who was admitted due to dizziness/lightheadedness Dizziness -Most likely secondary to be BPPV. Patient is noncompliance with medication. This has been intermittently chronic. CT scan the brain negative. -There is no focal neurological deficits. Based on history and clinical exam very unlikely that patient had a CVA. -We'll give meclizine when necessary. -Consult physical therapist. Lightheadedness -Patient does not show any clinical symptoms that he is lightheadedness. He says he lightheadedness but he is able to have a normal conversation with everyone and looks very comfortable. -This may be due to uncontrolled diabetes. -Treat diabetes should improve symptoms. Type 2 diabetes insulin-dependent complicated by peripheral neuropathy -Noncompliance secondary to financial hardship. Patient does not work and considered disabled. Sister is his payor source. -prior patient stated that he was on NPH 70/30 25 units twice a day and regular insulin 25 units twice a day. -Will consult case management to see if patient qualifies for any assistance. -We'll place patient on NPH 70/30 since this is the cheapest insulin. Based on insulin sliding scale and adjust NPH based on the amount of extra insulin patient requires. -As for patient's peripheral neuropathy this will only worsen he will need to control his diabetes. Right foot wound -Most likely secondary to severe peripheral neuropathy and patient is wearing tight shoes. -Wound is healing well. No signs of infection. DVT prophylaxis -Bernadine Zendejas MD Mar 04, 2017 13:30
[2017-03-04] MEDS: SODIUM CHLOR 0.9% 1000 ML INJ 1,000 ML IV SCH (16:37)
[2017-03-04] MEDS: ACETAMINOPHEN 500 MG CPLT PO PRN (16:38)
[2017-03-04] MEDS: INSULIN HUMAN NPH/R 70/30 1,000 UNITS/10 ML VIAL SQ SCH (17:19)
[2017-03-04] MEDS: metFORMIN HCL 500 MG TAB PO SCH (17:19)
[2017-03-05] VITALS (8 sets, daily range): BP systolic 113–149; BP diastolic 73–93; PULSE 93–112; RESP 17–18; TEMP 97.8–98.3; O2SAT 95–98
[2017-03-05] MEDS: SODIUM CHLOR 0.9% 1000 ML INJ 1,000 ML IV SCH (04:55)
[2017-03-05] MEDS: CEPHALEXIN MONOHYDRATE 500 MG CAP PO SCH ×2 (04:55→12:52)
[2017-03-05] MEDS ORDERED: NOVONP2 SQ ×2 (08:40→14:37)
[2017-03-05] MEDS: metFORMIN HCL 500 MG TAB PO SCH (08:41)
[2017-03-05] MEDS: LISINOPRIL 10 MG TAB PO SCH (08:41)
[2017-03-05] MEDS: ATORVASTATIN 20 MG TAB PO SCH (08:41)
[2017-03-05] MEDS: ACETAMINOPHEN 500 MG CPLT PO PRN (08:41)
[2017-03-05] MEDS: SODIUM CHLORIDE 0.9% FLUSH 10 ML FLUSH IV FLUSH SCH (08:42)
[2017-03-05] MEDS: INSULIN HUMAN NPH/R 70/30 1,000 UNITS/10 ML VIAL SQ SCH (08:42)
[2017-03-05] MEDS: INSULIN ASPART SUPPLEMENTAL SCALE SQ SCH ×2 (08:43→12:52)
--- NOTE | 2017-03-05 09:45 | HHI.PR ---
Subjective Remarks Patient says she feels better. No cp overnight. No n/v/d/c. Denies sob, palpitations diaphoresis. Says she is not complaints with taking meds, says he run out of insulin and doesn't have insurance, says he can't afford meds Objective Vitals Vital Signs Date Time Temp Pulse Resp B/P (MAP) Pulse Ox O2 Delivery O2 Flow Rate FiO2 03/05/17 08:00 98.1 101 18 143/74 (97) 95 03/05/17 06:10 101 03/05/17 04:47 98.0 93 17 117/73 (88) 98 03/05/17 02:58 21 03/05/17 01:03 97.8 93 18 149/93 (111) 96 03/04/17 21:20 Room Air 03/04/17 20:30 98.1 98 16 130/83 (99) 94 03/04/17 18:08 104 03/04/17 18:05 96.2 106 18 130/94 (106) 97 03/04/17 12:00 97.5 102 18 147/82 (103) 96 03/04/17 12:00 96 Room Air Result Diagram: 03/03/17 1845 03/03/17 184 Imaging Last Impressions Head CT 03/03/171741 Signed Impressions: Service Date/Time: Friday, March 03, 2017 19:57 - CONCLUSION: No acute disease. Melecio García Jr., MD Chest X-Ray 03/03/171741 Signed Impressions: Service Date/Time: Friday, March 03, 2017 17:57 - CONCLUSION: Normal examination. Melecio García Jr., MD Objective Remarks GENERAL: in NAD SKIN: Right anterior foot with crusted wound healing well. Mild penis around the wound but no cellulitis noted. Decreased sensation of lower extremity and bilateral arms, ,chronic. HEAD: Normocephalic. EYES: No scleral icterus. No injection or drainage. NECK: Supple, trachea midline. No JVD or lymphadenopathy. CARDIOVASCULAR: Regular rate and rhythm without murmurs, gallops, or rubs. RESPIRATORY: Breath sounds equal bilaterally. No accessory muscle use. GASTROINTESTINAL: Abdomen soft, non-tender, nondistended. MUSCULOSKELETAL: No cyanosis, or edema. BACK: Nontender without obvious deformity. No CVA tenderness. A/P Assessment and Plan 46-year-old male who was admitted due to dizziness/lightheadedness Dizziness -Most likely secondary to be BPPV. Patient is noncompliance with medication. This has been intermittently chronic. CT scan the brain negative. -There is no focal neurological deficits. Based on history and clinical exam very unlikely that patient had a CVA. -We'll give meclizine when necessary. -Consult physical therapist. Lightheadedness -Patient does not show any clinical symptoms that he is lightheadedness. He says he lightheadedness but he is able to have a normal conversation with everyone and looks very comfortable. -This may be due to uncontrolled diabetes. -Treat diabetes should improve symptoms. Type 2 diabetes insulin-dependent complicated by peripheral neuropathy -Noncompliance secondary to financial hardship. Patient does not work and considered disabled. Sister is his payor source. -prior patient stated that he was on NPH 70/30 25 units twice a day and regular insulin 25 units twice a day. -Will consult case management to see if patient qualifies for any assistance. -We'll place patient on NPH 70/30 since this is the cheapest insulin. Based on insulin sliding scale and adjust NPH based on the amount of extra insulin patient requires. -As for patient's peripheral neuropathy this will only worsen he will need to control his diabetes. Right foot wound -Most likely secondary to severe peripheral neuropathy and patient is wearing tight shoes. -Wound is healing well. No signs of infection. DVT prophylaxis -Lovenox Discharge Planning DC home in stable condition to follow up as OP with PCP and consultants. Diet diabetic diet and healthy heart diet Activity ad w[place] as tolerated Meds per med reconciliations DC time > 30 min Jenifer Vernon MD Mar 05, 2017 09:45
[2017-03-05] MEDS ORDERED: MECLIZINE HCL 25 MG TAB PO SCH (13:00)
[2017-03-05] MEDS ORDERED: LISI10TA3 PO (14:37)
[2017-03-05] MEDS ORDERED: NOVORP2 SQ ×2 (14:37)
[2017-03-05] MEDS ORDERED: ATOR20TA15 PO (14:37)
--- NOTE | 2017-03-05 14:38 | HHI.DCPOC ---
Discharge Care Plan Goals to Promote Your Health * To prevent worsening of your condition and complications * To maintain your health at the optimal level Directions to Meet Your Goals Take your medications as prescribed Follow your dietary instruction Follow activity as directed Keep your appointments as scheduled Take your immunizations and boosters as scheduled If your symptoms worsen call your PCP, if no PCP go to Urgent Care Center or Emergency Room Smoking is Dangerous to Your Health. Avoid second hand smoke Call the 24-hour hour crisis hotline for domestic abuse at Jenifer Vernon MD Mar 05, 2017 14:38
[2017-03-05] MEDS ORDERED: WALKER WHEELS/F1 MIS (15:55)
[2017-03-05] MEDS ORDERED: INSULIN ASPART SUPPLEMENTAL SCALE SQ SCH (17:00)
== END 2017-03-05 17:14 | disposition home or self-care (01) ==
LOC: NEPC 17:21 → NEDA 21:37 → NEPHCDU 03-04 16:00
PROVIDERS: ADMIT Hospitalist; ATTEND Hospitalist
DX: R42 Dizziness and giddiness (principal); E11.42 Type 2 diabetes mellitus with diabetic polyneuropathy; S91.301A Unspecified open wound, right foot, initial encounter; I10 Essential (primary) hypertension; R94.31 Abnormal electrocardiogram [ECG] [EKG]; H40.9 Unspecified glaucoma; H54.40 Blindness, one eye, unspecified eye; K21.9 Gastro-esophageal reflux disease without esophagitis; J45.909 Unspecified asthma, uncomplicated; Z79.4 Long term (current) use of insulin; Z59.9 Problem related to housing and economic circumstances, unspecified; Z91.14 Patient's other noncompliance with medication regimen; Z87.442 Personal history of urinary calculi
CPT/HCPCS: 70450; 71046; 80053; 81001; 82550; 82552; 82948; 83735; 84484; 85025; 85610; 85730; 87081; 87804; 87880; 93005; 96361; 96372; 96374; 97162; 97166; 99285; G0378; G8987; G8988; G8989; J1815; J7030

== ENCOUNTER 2017-06-27 13:21 | Emergency (ER) | payer SELFPAY ==
[~2017-06-27] VITALS: Ht 177.8 cm; Wt 107.0 kg
[~2017-06-27 13:21] MED LIST changes: +ATOR20TA15 PO; -BACT800T5 PO; +LACTCAP8 PO; +LISI10TA3 PO; +MECL-62 PO; +NOVONP2 SQ; +NOVORP2 SQ; +WALKER WHEELS/F1 MIS
[2017-06-27 13:53] VITALS: BP 159/79; PULSE 108; RESP 16; TEMP 98.8; O2SAT 98
[2017-06-27] MEDS ORDERED: CLIN300C5 PO (14:14)
[2017-06-27] MEDS ORDERED: CEPH-460 PO (14:14)
--- NOTE | 2017-06-27 14:20 | PD ---
HPI Chief Complaint: Lump, Cyst, Hernia Time Seen by Provider: 14:04 Travel History International Travel<30 days: No Contact w/Intl Traveler<30days: No Traveled to known affect area: No History of Present Illness HPI 46-year-old male presents emergency department with pain, erythema, and mild swelling at the base of the right neck at previous area of abscess which is been drained in the past. Patient denies fever, chills, or significant swelling or pointing. There is no drainage. Pain is currently 7 out of 10 and worse with palpation. He is requesting antibiotics so that he can avoid recurrent abscess. He is allergic to erythromycin, and sulfa PFSH Past Medical History Asthma: Yes ( A CHILD) Autoimmune Disease: No Anxiety: Yes Depression: Yes Heart Rhythm Problems: No Cancer: No Cardiac Catheterization: No Cardiovascular Problems: Yes High Cholesterol: No Chest Pain: Yes (05/28/13) Congestive Heart Failure: No Diabetes: Yes Patient Takes Glucophage: No (insulin) Diminished Hearing: No Endocrine: Yes Gastrointestinal Disorders: Yes (occ reflux) Genitourinary: No Headaches: Yes (SINUS HEADACHES) Hepatitis: No Hiatal Hernia: No Heparin Induced Thrombocytopen: No Hypertension: Yes Immune Disorder: No Implanted Vascular Access Dvce: No Kidney Stones: Yes Musculoskeletal: Yes ( neuropathy) Neurologic: Yes Psychiatric: No Reproductive: Yes (scrotal lesions) Respiratory: Yes (asthma as a child) Integumentary: Yes (Cellulitis) Immunizations Current: Yes Thyroid Disease: No Past Surgical History Coronary Artery Bypass Graft: No Insulin Pump: No Joint Replacement: No Pacemaker: No Other Surgery: Yes (debridment) Family History Family Myocardial Infarction: Yes (GRAND PARENTS, UNCLE) Social History Alcohol Use: No Tobacco Use: No Substance Use: No Allergies-Medications (Allergen,Severity, Reaction): Coded Allergies: erythromycin base (Verified Allergy, Severe, RASH, 06/27/17) shortness of breath latex (Verified Allergy, Severe, RASH, 06/27/17) shortness of breath sulfamethoxazole (Verified Allergy, Unknown, 03/04/17) trimethoprim (Verified Allergy, Unknown, 03/04/17) Reported Meds & Prescriptions Reported Meds & Active Scripts Active Clindamycin (Clindamycin HCl) 300 Mg Cap 300 Mg PO TID 7 Days Keflex (Cephalexin) 500 Mg Cap 500 Mg PO Q6H 7 Days Walker with Front Wheels (Device) 1 Mis Mis Ea .ROUTE DIRECTED Lisinopril 10 Mg Tab 10 Mg PO DAILY Atorvastatin (Atorvastatin Calcium) 20 Mg Tab 20 Mg PO DAILY Novolin N Inj (Insulin Human NPH) 1,000 Unit/10 Ml Vial 25 Units SQ DAILY Novolin R Inj (Insulin Human Regular) 1,000 Unit/10 Ml Vial 2-10 Units SQ DIRECTED Max dose at bedtime:( )units; sugars less than 150,(0) units; sugars 150-199,(2)unit; sugars 200-249,(4)units; sugars 250-299,(6) units; sugars 300-349,(8)units; sugars equal to or greater than 350,(10)units Novolin R Inj (Insulin Human Regular) 1,000 Unit/10 Ml Vial 20 Units SQ BID Meclizine (Meclizine HCl) 25 Mg Tab 25 Mg PO TID PRN Keflex (Cephalexin) 500 Mg Cap 500 Mg PO Q8H Reported Probiotic (Lactobacillus Acidophilus) 10 Billion Cell Cap 1 Cap PO TIDAC Review of Systems Except as stated in HPI: all other systems reviewed are Neg General / Constitutional: No: Fever Eyes: No: Visual changes HENT: No: Headaches Cardiovascular: No: Chest Pain or Discomfort Respiratory: No: Shortness of Breath Gastrointestinal: No: Abdominal Pain Genitourinary: No: Dysuria Musculoskeletal: No: Pain Skin: Positive Lesions (See history of present illness), No Rash Neurologic: No: Weakness Psychiatric: No: Depression Endocrine: No: Polydipsia Hematologic/Lymphatic: No: Easy Bruising Physical Exam Narrative GENERAL: Patient appears in no obvious distress per SKIN: Warm and dry. Normal color. Normal turgor. Patient has area of warmth, erythema, and mild swelling at the medial upper trapezius, at site of previous abscess which has been I indeed in the distant past. There is no significant swelling or signs of abscess currently. There is no spontaneous drainage or pointing. HEAD: Atraumatic. Normocephalic. EYES: Pupils equal and round. No scleral icterus. No injection or drainage. ENT: No nasal bleeding or discharge. Mucous membranes pink and moist. Pharynx is clear. Airways patent NECK: Trachea midline. Supple and nontender. CARDIOVASCULAR: Regular rate and rhythm. RESPIRATORY: No accessory muscle use. Clear to auscultation. Breath sounds equal bilaterally. MUSCULOSKELETAL: Extremities without clubbing, cyanosis, or edema. No obvious deformities. NEUROLOGICAL: Awake and alert. No obvious cranial nerve deficits. Motor grossly within normal limits. Five out of 5 muscle strength in the arms and legs. Normal speech. PSYCHIATRIC: Appropriate mood and affect; insight and judgment normal. Data Data Last Documented VS Vital Signs Date Time Temp Pulse Resp B/P (MAP) Pulse Ox O2 Delivery O2 Flow Rate FiO2 06/27/17 13:53 98.8 108 16 159/79 (105) 98 MDM Medical Decision Making Medical Screen Exam Complete: Yes Emergency Medical Condition: Yes Differential Diagnosis Cellulitis. Early abscess. MRSA. Narrative Course Patient does not have palpable abscess warranting incision and drainage today. Patient is given Keflex 500 mg 4 times daily 7 days. Patient is given additional clindamycin 300 mg 3 times daily for 7 days as well. Patient can take Tylenol and ibuprofen as needed. Recommend hot packs area frequently as needed. Patient to follow-up if symptoms do not improve or worsen as needed. Diagnosis Primary Impression: Cellulitis of upper back excluding scapular region Patient Instructions: Cellulitis (ED), General Instructions Additional Instructions: Patient does not have palpable abscess warranting incision and drainage today. Patient is given Keflex 500 mg 4 times daily 7 days. Patient is given additional clindamycin 300 mg 3 times daily for 7 days as well. Patient can take Tylenol and ibuprofen as needed. Recommend hot packs area frequently as needed. Patient to follow-up if symptoms do not improve or worsen as needed. Scripts Clindamycin (Clindamycin) 300 Mg Cap 300 MG PO TID for Infection for 7 Days, CAP 0 Refills Prov: Mandi Keller MD 06/27/17 Cephalexin (Keflex) 500 Mg Cap 500 MG PO Q6H for Infection for 7 Days, #28 CAP 0 Refills Prov: Mandi Keller MD 06/27/17 Disposition: 01 DISCHARGE HOME Condition: Stable Stephen Zhou June 27, 2017 14:20
== END 2017-06-27 15:25 | disposition home or self-care (01) ==
LOC: NEPD 13:21
DX: L03.312 Cellulitis of back [any part except buttock and flank] (principal); E11.9 Type 2 diabetes mellitus without complications; I10 Essential (primary) hypertension; Z79.4 Long term (current) use of insulin; Z87.09 Personal history of other diseases of the respiratory system; Z86.59 Personal history of other mental and behavioral disorders; Z86.79 Personal history of other diseases of the circulatory system; Z87.19 Personal history of other diseases of the digestive system; Z86.69 Personal history of other diseases of the nervous system and sense organs
CPT/HCPCS: 99283

== ENCOUNTER 2017-11-12 00:50 | Inpatient (IN) ==
[2017-11-12] MEDS ORDERED: Acetaminophen 325 MG Tablet PO ONE (03:48)
--- NOTE | 2017-11-12 03:58 | ED ---
HPI General Chief Complaint: Headache Stated Complaint: diabetic, bed bugs, weakness Time Seen by Provider: 11/12/17 03:48 Source: patient Mode of arrival: ambulatory Limitations: no limitations History of Present Illness HPI Narrative: 47-year-old male complains of headache and unable to see out of the eyes. Patient states that he had a history of glaucoma and lost eyesight in the right eye in the past. Patient started having problems seeing out of the left eye this evening. Patient states that headache is aching headache diffuse over the head. Patient denies any neck pain. Patient denies any fever chills. Patient denied denies any chest pain or shortness of breath. Patient states that he has mild cramping upper abdominal pain. Patient denies any pain radiation. Patient denies any nausea vomiting. Patient denies any focal weakness or numbness of the extremity. Administrative Appeals Tribunal Member states that patient is confused and not his normal mental status. Administrative Appeals Tribunal Member states that no new medication change. The news library director is patient's sister. Patient's sister also states that patient has a rash on the body possible bedbugs recently. Complaint: headache Onset (ago): hour(s) Onset description: sudden Location: diffuse Severity: moderate Severity scale (1-10): 7 Quality: throbbing Relieving factors: nothing Exacerbating factors: none Context: occurred at rest Associated symptoms: none Treatments prior to arrival: none Related Data Home Medications Medication Instructions Recorded Confirmed Humulin N NPH U-100 Insulin 11/12/17 Humulin R Regular U-100 Insuln 11/12/17 Allergies Allergy/AdvReac Type Severity Reaction Status Date / Time erythromycin base Allergy Severe RASH Verified 11/12/17 01:30 latex Allergy Severe RASH Verified 11/12/17 01:30 sulfamethoxazole Allergy Unknown Rash Verified 11/12/17 01:30 trimethoprim Allergy Unknown Rash Verified 11/12/17 01:30 Review of Systems ROS: all other systems reviewed are negative [facility] Medical History Medical History Diabetes (Acute) Glaucoma (Acute) Neuropathy (Acute) Retinopathy (Acute) Surgical History Surgical History S/P right knee arthroscopy (Acute) Family History Family History Other CVA (cerebral vascular accident) Diabetes Social History Social History Substance History: No History of Abuse Second Hand Smoke Exposure: No Smoking Status: Former smoker Tobacco Type: Cigarettes How Often Do You Have a Drink Containing Alcohol: Never Recent Travel in [facility] within the Last 8 Weeks: No Recent Out of Country Travel within the Last 8 Weeks: No Immunization History Tetanus Immunization: Unsure Hx Influenza Vaccine This Season: No Exam Narrative Exam Narrative: GENERAL: Well-nourished, well-developed patient. SKIN: Focused skin assessment warm/dry. HEAD: Normocephalic. EYES: No scleral icterus. No injection or drainage. Right eye is cloudy. Left pupil 2 mm and reactive. Unable to visualize the fundi. Tonometry reading 18 in the left eye. NECK: Supple, trachea midline. No JVD or lymphadenopathy. CARDIOVASCULAR: Regular rate and rhythm without murmurs, gallops, or rubs. RESPIRATORY: Breath sounds equal bilaterally. No accessory muscle use. GASTROINTESTINAL: Abdomen soft, nondistended. Patient has mild tenderness on palpation epigastric and upper abdomen. No rebound tenderness. No mass. MUSCULOSKELETAL: No cyanosis, or edema. BACK: Nontender without obvious deformity. No CVA tenderness. Course Initial Documented Vital Signs Temperature 97 F L 11/12/17 01:22 Pulse Rate 105 H 11/12/17 01:22 Respiratory Rate 18 11/12/17 01:22 Blood Pressure 161/100 H 11/12/17 01:22 Pulse Oximetry 99 11/12/17 01:22 Last Documented Vital Signs Temperature 98.5 F 11/12/17 12:00 Pulse Rate 97 H 11/12/17 12:00 Respiratory Rate 16 11/12/17 12:00 Blood Pressure 124/71 11/12/17 12:00 Pulse Oximetry 96 11/12/17 12:00 Medical Decision Making MDM Narrative Medical decision making narrative: 47-year-old male complains of headache, unable to see out of the left eye, abdominal discomfort. Medical Screen Exam Complete: Yes Emergency Medical Condition: Yes Differential Diagnosis Differential Diagnosis: Differential diagnosis including cluster headache, tension headache, migraine headache, glaucoma, vascular insufficiency of the left eye, TIA, CVA. Lab Data Lab results reviewed: Yes I reviewed the patient's lab results. Result diagrams: 11/12/17 04:40 11/12/17 04:40 Lab Results 11/12/17 11/12/17 11/12/17 Range/Units 04:40 04:40 04:40 WBC 9.2 (4.0-11.0) th/mm3 RBC 4.92 (4.50-5.90) mil/mm3 Hgb 15.0 (13.0-17.0) gm/dL Hct 43.7 (39.0-51.0) % MCV 88.8 (80.0-100.0) fL MCH 30.4 (27.0-34.0) pg MCHC 34.2 (32.0-36.0) % RDW 13.2 (11.6-17.2) % Plt Count 202 (150-450) th/mm3 MPV 10.3 (7.0-11.0) fL Neut % (Auto) 73.9 H (16.0-70.0) % Lymph % (Auto) 15.4 (9.0-44.0) % [place] % (Auto) 7.1 (0.0-8.0) % Eos % (Auto) 2.7 (0.0-4.0) % Baso % (Auto) 0.9 (0.0-2.0) % Neut # (Auto) 6.8 (1.8-7.7) th/mm3 Lymph # (Auto) 1.4 (1.0-4.8) th/mm3 [place] # (Auto) 0.7 (0.0-0.9) th/mm3 Eos # (Auto) 0.2 (0.0-0.4) th/mm3 Baso # (Auto) 0.1 (0.0-0.2) th/mm3 WBC Differential . Differential Comment Auto diff final ESR 15 (0-15) mm/hr Sodium 138 (136-145) meq/L Potassium 4.1 (3.5-5.1) meq/L Chloride 103 (98-107) meq/L Carbon Dioxide 24.0 (21.0-32.0) meq/L Anion Gap 11 (5-15) meq/L BUN 17 (7-18) mg/dL Creatinine 0.72 (0.60-1.30) mg/dL Estimated GFR Greater than 89 (>89) mL/min POC Glucose (68-110) mg/dl Random Glucose 324 H (74-106) mg/dL Calcium 8.5 (8.5-10.1) mg/dL Total Bilirubin 0.9 (0.2-1.0) mg/dL AST 13 L (15-37) U/L ALT 20 (12-78) U/L Alkaline Phosphatase 95 (45-117) U/L Total Protein 7.2 (6.4-8.2) g/dL Albumin 3.5 (3.4-5.0) g/dL Urine Color (Yellw/Straw) Urine Clarity (Clear) Urine pH (5.0-8.5) Ur Specific [place] (1.002-1.035) Urine Protein (Neg-Trace) mg/dL Urine Glucose (UA) (Negative) mg/dL Urine Ketones (Negative) mg/dL Urine Occult Blood (Negative) Urine Nitrate (Negative) Urine Bilirubin (Negative) Urine Urobilinogen (Less than 2) mg/dL Ur Leukocyte Esterase (Negative) Urine RBC (0-3) /hpf Ur Squamous Epith Cells (0-5) /hpf Micro UA Comment Ur Microscopic Review Urine Culture Comments Urine Opiates Screen (Neg) Ur Barbiturates Screen (Neg) Ur Amphetamines Screen (Neg) U Benzodiazepines Scrn (Neg) Urine Cocaine Screen (Neg) U Cannabinoids Screen (Neg) 11/12/17 11/12/17 11/12/17 Range/Units 07:05 07:05 08:04 WBC (4.0-11.0) th/mm3 RBC (4.50-5.90) mil/mm3 Hgb (13.0-17.0) gm/dL Hct (39.0-51.0) % MCV (80.0-100.0) fL MCH (27.0-34.0) pg MCHC (32.0-36.0) % RDW (11.6-17.2) % Plt Count (150-450) th/mm3 MPV (7.0-11.0) fL Neut % (Auto) (16.0-70.0) % Lymph % (Auto) (9.0-44.0) % [place] % (Auto) (0.0-8.0) % Eos % (Auto) (0.0-4.0) % Baso % (Auto) (0.0-2.0) % Neut # (Auto) (1.8-7.7) th/mm3 Lymph # (Auto) (1.0-4.8) th/mm3 [place] # (Auto) (0.0-0.9) th/mm3 Eos # (Auto) (0.0-0.4) th/mm3 Baso # (Auto) (0.0-0.2) th/mm3 WBC Differential Differential Comment ESR (0-15) mm/hr Sodium (136-145) meq/L Potassium (3.5-5.1) meq/L Chloride (98-107) meq/L Carbon Dioxide (21.0-32.0) meq/L Anion Gap (5-15) meq/L BUN (7-18) mg/dL Creatinine (0.60-1.30) mg/dL Estimated GFR (>89) mL/min POC Glucose 319 H (68-110) mg/dl Random Glucose (74-106) mg/dL Calcium (8.5-10.1) mg/dL Total Bilirubin (0.2-1.0) mg/dL AST (15-37) U/L ALT (12-78) U/L Alkaline Phosphatase (45-117) U/L Total Protein (6.4-8.2) g/dL Albumin (3.4-5.0) g/dL Urine Color Straw (Yellw/Straw) Urine Clarity Clear (Clear) Urine pH 5.0 (5.0-8.5) Ur Specific [place] 1.033 (1.002-1.035) Urine Protein 30 H (Neg-Trace) mg/dL Urine Glucose (UA) 500 or greater (Negative) mg/dL Urine Ketones 80 or greater H (Negative) mg/dL Urine Occult Blood Small H (Negative) Urine Nitrate Negative (Negative) Urine Bilirubin Negative (Negative) Urine Urobilinogen Less than 2 (Less than 2) mg/dL Ur Leukocyte Esterase Negative (Negative) Urine RBC 1 (0-3) /hpf Ur Squamous Epith Cells <1 (0-5) /hpf Micro UA Comment Culture not ind Ur Microscopic Review Not Reportable Urine Culture Comments Culture not ind Urine Opiates Screen Neg (Neg) Ur Barbiturates Screen Neg (Neg) Ur Amphetamines Screen Neg (Neg) U Benzodiazepines Scrn Neg (Neg) Urine Cocaine Screen Neg (Neg) U Cannabinoids Screen Neg (Neg) 11/12/17 Range/Units 10:21 WBC (4.0-11.0) th/mm3 RBC (4.50-5.90) mil/mm3 Hgb (13.0-17.0) gm/dL Hct (39.0-51.0) % MCV (80.0-100.0) fL MCH (27.0-34.0) pg MCHC (32.0-36.0) % RDW (11.6-17.2) % Plt Count (150-450) th/mm3 MPV (7.0-11.0) fL Neut % (Auto) (16.0-70.0) % Lymph % (Auto) (9.0-44.0) % [place] % (Auto) (0.0-8.0) % Eos % (Auto) (0.0-4.0) % Baso % (Auto) (0.0-2.0) % Neut # (Auto) (1.8-7.7) th/mm3 Lymph # (Auto) (1.0-4.8) th/mm3 [place] # (Auto) (0.0-0.9) th/mm3 Eos # (Auto) (0.0-0.4) th/mm3 Baso # (Auto) (0.0-0.2) th/mm3 WBC Differential Differential Comment ESR (0-15) mm/hr Sodium (136-145) meq/L Potassium (3.5-5.1) meq/L Chloride (98-107) meq/L Carbon Dioxide (21.0-32.0) meq/L Anion Gap (5-15) meq/L BUN (7-18) mg/dL Creatinine (0.60-1.30) mg/dL Estimated GFR (>89) mL/min POC Glucose 283 H (68-110) mg/dl Random Glucose (74-106) mg/dL Calcium (8.5-10.1) mg/dL Total Bilirubin (0.2-1.0) mg/dL AST (15-37) U/L ALT (12-78) U/L Alkaline Phosphatase (45-117) U/L Total Protein (6.4-8.2) g/dL Albumin (3.4-5.0) g/dL Urine Color (Yellw/Straw) Urine Clarity (Clear) Urine pH (5.0-8.5) Ur Specific [place] (1.002-1.035) Urine Protein (Neg-Trace) mg/dL Urine Glucose (UA) (Negative) mg/dL Urine Ketones (Negative) mg/dL Urine Occult Blood (Negative) Urine Nitrate (Negative) Urine Bilirubin (Negative) Urine Urobilinogen (Less than 2) mg/dL Ur Leukocyte Esterase (Negative) Urine RBC (0-3) /hpf Ur Squamous Epith Cells (0-5) /hpf Micro UA Comment Ur Microscopic Review Urine Culture Comments Urine Opiates Screen (Neg) Ur Barbiturates Screen (Neg) Ur Amphetamines Screen (Neg) U Benzodiazepines Scrn (Neg) Urine Cocaine Screen (Neg) U Cannabinoids Screen (Neg) Imaging Data Attestation: I personally reviewed and interpreted this imaging study as follows : Radiologist's impression: Head MRI 11/12/17 00:00 CONCLUSION: 1. Focal 7 mm probable acute infarction in the mesial left temporal periventricular white matter. 2. Findings consistent with right-sided retinal detachment/hemorrhage with abnormal signal throughout the orbit consistent with subacute/chronic blood products versus interval treatment. Clinical correlation is recommended. Head CT 11/12/17 03:48 CONCLUSION: Negative noncontrast head CT. . Chest X-Ray 11/12/17 07:14 CONCLUSION: 1. No acute cardiopulmonary disease. Head MRA 11/12/17 07:32 CONCLUSION: No acute intracranial vascular abnormality is identified. Neck MRA 11/12/17 07:32 CONCLUSION: 1. Negative MRA Carotids. Percent stenosis is calculated using the diameter of the stenotic region over the diameter of the normal distal internal carotid artery Discharge Plan Discharge Disposition Patient Disposition: 30 Still Patient Discharge Details Diagnosis: Cephalgia, Disturbance, visual, subjective Physicians Team ED Provider: Luigi Nick Primary Care Provider: Primary Care Gabi Tilley Attending Provider: Ina Wright Other Providers: Erich Jeffries ; Cyndi Palacios Discharge Interventions Interventions: ED Discharge Assessment Last Done: 11/12/17 08:46 Status ED Status: Left Department Discharge Information Discharge Date/Time: 11/12/17 08:47
--- NOTE | 2017-11-12 04:39 | CT ---
EXAM DATE: 11/12/2017 3:53 AM EDT AGE/SEX: 47 years / Male INDICATIONS: Cephalgia. CLINICAL DATA: This is the patient's initial encounter. Patient reports that signs and symptoms have been present for 1 day and indicates a pain score of 10/10. MEDICAL/SURGICAL HISTORY: Diabetes. None. RADIATION DOSE: 42.08 CTDI (mGy) COMPARISON: [facility] – [place], [place] BRAIN W/O CONTRAST, 03/03/2017. . TECHNIQUE: CT of the head without contrast. Using automated exposure control and adjustment of the mA and/or kV according to patient size, radiation dose was kept as low as reasonably achievable to ob tain optimal diagnostic quality images. DICOM format image data is available electronically for revi ew and comparison. FINDINGS: Cerebrum: The ventricles are normal for age. No evidence of midline shift, mass lesion, hemorrhage or acute infarction. No extraaxial fluid collections are seen. Posterior Fossa: The cerebellum and brainstem are intact. The 4th ventricle is midline. The cerebe llopontine angle is unremarkable. Extracranial: The visualized portion of the orbits is intact. Skull: The calvaria is intact. No evidence of skull fracture. CONCLUSION: Negative noncontrast head CT. . Electronically signed by: Mikey Garrett MD 11/12/2017 4:37 AM EDT
[2017-11-12 04:58] LABS: Baso # (Auto) 0.1 th/mm3 (0.0-0.2); Baso % (Auto) 0.9 % (0.0-2.0); Eos # (Auto) 0.2 th/mm3 (0.0-0.4); Eos % (Auto) 2.7 % (0.0-4.0); Hematocrit 43.7 % (39.0-51.0); Lymph # (Auto) 1.4 th/mm3 (1.0-4.8); Lymph % (Auto) 15.4 % (9.0-44.0); Mean Corpuscular HGB Conc 34.2 % (32.0-36.0); Mean Corpuscular Hemoglobin 30.4 pg (27.0-34.0); Mean Corpuscular Volume 88.8 fL (80.0-100.0); Mean Platelet Volume 10.3 fL (7.0-11.0); Mono # (Auto) 0.7 th/mm3 (0.0-0.9); Mono % (Auto) 7.1 % (0.0-8.0); Neut # (Auto) 6.8 th/mm3 (1.8-7.7); Neut % (Auto) 73.9 % (16.0-70.0); Platelet Count 202 th/mm3 (150-450); Red Blood Count 4.92 mil/mm3 (4.50-5.90); Red Cell Distribution Width 13.2 % (11.6-17.2); White Blood Count 9.2 th/mm3 (4.0-11.0)
[2017-11-12 05:11] LABS: Alanine Aminotransferase 20 U/L (12-78); Albumin 3.5 g/dL (3.4-5.0); Anion Gap 11 meq/L (5-15); Aspartate Aminotransferase 13 U/L (15-37); Blood Urea Nitrogen 17 mg/dL (7-18); Calcium 8.5 mg/dL (8.5-10.1); Chloride 103 meq/L (98-107); Glomerular Filtration Rate Greater Than 89 mL/min (>89); Glucose,Random 324 mg/dL (74-106); Potassium 4.1 meq/L (3.5-5.1); Sodium 138 meq/L (136-145)
[2017-11-12 05:13] LABS: Alkaline Phosphatase 95 U/L (45-117); Total Protein 7.2 g/dL (6.4-8.2)
[2017-11-12] MEDS ORDERED: Bisacodyl 10 MG Supp RECTAL PRN (07:25)
[2017-11-12] MEDS ORDERED: Dextrose 50% in Water 50 ML Vial IV.PUSH PRN (07:29)
--- NOTE | 2017-11-12 07:43 | XR ---
EXAM DATE: 11/12/2017 7:14 AM EDT AGE/SEX: 47 years / Male INDICATIONS: Chest pains, nausea, headache. CLINICAL DATA: This is the patient's initial encounter. Patient reports that signs and symptoms have been present for 1 day and indicates a pain score of 6/10. MEDICAL/SURGICAL HISTORY: Asthma. None. COMPARISON: [facility] [place] & [place], 03/03/[place]. . FINDINGS: A single AP view of the chest demonstrates the lungs to be symmetrically aerated without evidence of mass, infiltrate or effusion. The cardiomediastinal contours are unremarkable. Osseous structures a re intact. CONCLUSION: 1. No acute cardiopulmonary disease. Electronically signed by: Julien Fan MD 11/12/2017 7:42 AM EDT
[2017-11-12 07:44] LABS: Bilirubin,Urine Negative (Negative); Clarity,Urine Clear (Clear); Color,Urine Straw (Yellw/Straw); Glucose,Urine (UA) 500 or Greater mg/dL (Negative); Leukocyte Esterase,Urine Negative (Negative); Nitrite,Urine Negative (Negative); Specific Gravity,Urine 1.033 (1.002-1.035); Squamous Epithelial Cell,Urine <1 /hpf (0-5)
[2017-11-12 07:47] LABS: Amphetamine Screen,Urine Neg (Neg); Barbiturate Screen,Urine Neg (Neg); Cannabinoid Screen,Urine Neg (Neg); Cocaine Screen,Urine Neg (Neg)
[2017-11-12 07:58] LABS: Opiate Screen,Urine Neg (Neg)
[2017-11-12] MEDS ORDERED: Senna/Docusate Sodium 8.6/50 MG Tablet PO SCH (09:00)
[2017-11-12] MEDS: Insulin NovoLIN Regular Correctional Sugar Inj SQ SCH ×3 (11:28→19:44)
--- NOTE | 2017-11-12 11:44 | MR ---
EXAM DATE: 11/12/2017 8:57 AM EDT AGE/SEX: 47 years / Male INDICATIONS: Dizziness. Visual disturbances. Confusion. Cephalgia. CLINICAL DATA: This is the patient's initial encounter. Patient reports that signs and symptoms have been present for 1 day and indicates a pain score of 4/10. MEDICAL/SURGICAL HISTORY: Diabetes mellitus type II. . Groin wound debridement. COMPARISON: [facility] – [place], MR HEAD W & W/O CONTRAST, 11/12/2017. . TECHNIQUE: 3D [id number] MRA was performed. Source images, multiplanar STS MIP, and 3D volum e MIP reconstructions were reviewed. FINDINGS: There is excellent visualization of the major intracranial arteries out to the second-order branch ve ssels. There is no evidence for aneurysm, vessel truncation or stenosis, and no evidence for vascula r malformation. CONCLUSION: No acute intracranial vascular abnormality is identified. Electronically signed by: Mikey Novoa MD 11/12/2017 11:43 AM EDT
[2017-11-12] MEDS: Lisinopril 5 MG Tablet PO SCH (11:45)
[2017-11-12] MEDS: Senna/Docusate Sodium 8.6/50 MG Tablet PO SCH ×2 (11:45→21:14)
[2017-11-12] MEDS: Sod Chloride 0.9% Inj 1,000 ML IV.CONT SCH ×3 (11:46→19:28)
--- NOTE | 2017-11-12 11:50 | MR ---
EXAM DATE: 11/12/2017 8:57 AM EDT AGE/SEX: 47 years / Male INDICATIONS: Dizziness. Visual disturbances. Confusion. Cephalgia. CLINICAL DATA: This is the patient's initial encounter. Patient reports that signs and symptoms have been present for 1 day and indicates a pain score of 5/10. MEDICAL/SURGICAL HISTORY: Diabetes mellitus type II. . Groin wound debridment. [place] [facility] [place]/03/2017. . TECHNIQUE: Multiplanar, multisequence examination of the brain was performed without and with 10 ml G adavist (gadobutrol) contrast as a single exam dose. FINDINGS: Cerebrum: The ventricles are normal for age. No evidence of midline shift, mass lesion, hemorrhage or acute infarction. No extraaxial fluid collections are seen. The pituitary gland and suprasellar cistern are normal in configuration. White Matter: Minimal periventricular and focal deep white matter T2 hyperintensities. Posterior Fossa: The cerebellum and brainstem are intact. The 4th ventricle is midline. The cerebel lopontine angle is unremarkable. The cerebellar tonsils are normal in position. Diffusion Imaging: Focal 7 mm region of restricted diffusion in the mesial left temporal periventric ular white matter low convexities. Extracranial: There is approximately 4 mm region of abnormal signal corresponding in the posterior c hamber of the right orbit in a configuration consistent with retinal detachment/hemorrhage. This appe ars somewhat more prominent than prior CT examination of 03/03/2017. Additionally, there is diffusely abnormal signal throughout the posterior and anterior chambers on the right which may reflect old blo od products or interval treatment. CONCLUSION: 1. Focal 7 mm probable acute infarction in the mesial left temporal periventricular white matter. 2. Findings consistent with right-sided retinal detachment/hemorrhage with abnormal signal througho ut the orbit consistent with subacute/chronic blood products versus interval treatment. Clinical giacomo elation is recommended. Electronically signed by: Julien Fan MD 11/12/2017 11:49 AM EDT
--- NOTE | 2017-11-12 11:56 | MR ---
EXAM DATE: 11/12/2017 8:58 AM EDT AGE/SEX: 47 years / Male INDICATIONS: Dizziness. Visual disturbances. Confusion. Cephalgia. CLINICAL DATA: This is the patient's initial encounter. Patient reports that signs and symptoms have been present for 1 day and indicates a pain score of 5/10. MEDICAL/SURGICAL HISTORY: Diabetes mellitus type II. . Groin wound debridment. COMPARISON: No prior exams available for comparison. TECHNIQUE: 10 ml Gadavist (gadobutrol) contrast infused MRA (single exam dose) of the extracranial circulation was performed using a neurovascular coil. Postprocessing was performed, including rotati ng sub-volume maximum intensity projections of each carotid artery, rotating full-volume maximum inte nsity projections of both carotid arteries, sagittal and coronal sliding thin-slab reformations of ea ch carotid artery, and left oblique sliding thin-slab reformation through the aortic arch to include the origin of the arch branch vessels. FINDINGS: Aortic Arch : There is a three-vessel origin of the great vessels from the aorta. No evidence of o stial narrowing. Right Carotid : The common carotid artery is intact. The carotid bulb has a normal configuration wi thout ulceration or narrowing. The internal carotid artery lumen is smooth without stenosis. The ex ternal carotid artery is intact. Left Carotid : The common carotid artery is intact. The carotid bulb has a normal configuration wit hout ulceration or narrowing. The internal carotid artery lumen is smooth without stenosis. The ext ernal carotid artery is intact. Vertebrals : The vertebral arteries have a symmetric diameter. No stenotic lesions are seen. CONCLUSION: 1. Negative MRA Carotids. Percent stenosis is calculated using the diameter of the stenotic region over the diameter of the nor mal distal internal carotid artery Electronically signed by: Julien Fan MD 11/12/2017 11:54 AM EDT
[2017-11-12] MEDS ORDERED: Gadobutrol PF 10 MMOL/10 ML Vial (for RAD) IV.SIG ONE (12:42)
--- NOTE | 2017-11-12 13:37 | P.HP ---
History of Present Illness Service: Hospitalist Primary Care Physician: No Primary Care Physician Chief Complaint: decreased vision, headache History of Present Illness: This is a 47yo male with a PMHX for glaucoma in the right eye and poorly controlled diabetes type I with blood sugars routinely running in the 300s who presents to [facility] ED with complaints of decreased vision and headache. Patient is a poor historian and no family is at the bedside therefore history is obtained from the patient directly as well as review of electronic medical record. Patient states he began having a headache since yesterday. He denies any numbness/tingling, focal weakness, dizziness or lightheadedness. He denies any chest pain, palpitations or shortness of breath. He states he has had some nausea but denies any emesis. He denies any complaints of abdominal pain. Additionally, patient reports rash all over his body for unspecified period of time. He denies any associated pain/discomfort or itching. He denies any fever or chills. Per review of the EMR, patient's caregiver who is his sister states that he has been confused which is not his normal mental state. In the ED, head CT was negative. Chest x-ray shows no acute pulmonary disease. CBC is unremarkable and chemistry panel is significant only for elevated glucose of 324. Urine drug screen is negative. UA is significant for proteinuria and ketonuria. MRI brain reveals focal 7 mm probable acute infarction in the mesial left temporal periventricular white matter and findings consistent with right-sided retinal detachment/hemorrhage with abnormal signal throughout the orbit consistent with subacute/chronic blood products versus interval treatment. Patient was seen in February with complaints of dizziness and weakness in the upper and lower extremities that was felt likely secondary to BPPV. Review of Systems All other systems reviewed negative except as stated in HPI PMFSH - History History Provided By: Patient, Family Member, Medical Record - Medical History Medical History: Medical History (Last Reviewed 11/12/17 @ 12:05 by Katheryn Crockett) Diabetes Glaucoma Neuropathy Retinopathy - Surgical History Surgical History: Surgical History (Last Updated 11/12/17 @ 13:18 by Lorena Metz) S/P right knee arthroscopy - Family History Family History: Family History (Last Updated 11/12/17 @ 13:18 by Lorena Metz) Other CVA (cerebral vascular accident) Diabetes - Social History I have reviewed the patient's Social History: Yes - Tobacco History Second Hand Smoke Exposure: No Tobacco Use In Past 30 Days: No Smoking Status: Former smoker Tobacco Type: Cigarettes - Alcohol History How Often Do You Have a Drink Containing Alcohol: Never - Substance Use History Substance History: No History of Abuse - Travel History Recent Travel in the [place] Within the Last 8 Weeks: No Recent Travel Out of the Country Within the Last 8 Weeks: No - Immunization History Tetanus Immunization: Unsure Hx Influenza Vaccine This Season: No Medications and Allergies Active Medications: Active Medications Al Hydroxide/Mg Hydroxide (Milk Of Magnesia Liq) 30 ml PO Q12H PRN PRN Reason: Mild Constipation Aspirin (Aspirin) 325 mg PO DAILY [facility] Atorvastatin Calcium (Lipitor) 80 mg PO DAILY [facility] Bisacodyl (Dulcolax Supp) 10 mg RECTAL DAILY PRN PRN Reason: SEVERE CONSITIPATION Dextrose (D50w Vial) 50 ml IV.PUSH UNSCH PRN PRN Reason: PER HYPOGLYCEMIA PROTOCOL Glucagon (Glucagon Inj) 1 mg OTHER PRN PRN PRN Reason: for Hypoglycemia Protocol Sodium Chloride (Ns Inj) 1,000 mls @ 100 mls/hr IV.CONT .Q10H [facility] Last Admin: 11/12/17 11:46 Dose: 100 mls/hr Sodium Chloride (Ns Inj) 1,000 mls @ 70 mls/hr IV.CONT .[id number] [facility] Insulin Human Regular (Novolin R Correctional Sugar Inj) 0 units SQ ACHS [facility]; Protocol Last Admin: 11/12/17 11:28 Dose: Not Given Lactulose (Lactulose Liq) 30 ml PO DAILY PRN PRN Reason: SEVERE CONSITIPATION Lisinopril (Prinivil) 5 mg PO DAILY [facility] [place] Last Admin: 11/12/17 11:45 Dose: 5 mg Ondansetron HCl (Zofran Inj) 4 mg IV.PUSH Q6H PRN PRN Reason: NAUSEA OR VOMITING Last Admin: 11/12/17 11:48 Dose: 4 mg Senna/Docusate Sodium (Cornelia-Colace) 1 tab PO BID [facility] [place] Last Admin: 11/12/17 11:45 Dose: 1 tab Sennosides (Senokot) 17.2 mg PO Q12H PRN PRN Reason: Moderate Constipation Allergies Allergy/AdvReac Type Severity Reaction Status Date / Time erythromycin base Allergy Severe RASH Verified 11/12/17 01:30 latex Allergy Severe RASH Verified 11/12/17 01:30 sulfamethoxazole Allergy Unknown Rash Verified 11/12/17 01:30 trimethoprim Allergy Unknown Rash Verified 11/12/17 01:30 Home Medications Medication Instructions Recorded Confirmed Type Humulin N NPH U-100 Insulin 11/12/17 History Humulin R Regular U-100 Insuln 11/12/17 History Exam Vital signs: Vital Signs 11/12/17 01:22 11/12/17 08:10 11/12/17 10:01 Temperature 97 F L 98.0 F Pulse Rate 105 H 100 H 103 H Respiratory Rate 18 20 12 Blood Pressure 161/100 H 142/91 H 140/79 Pulse Oximetry 99 95 11/12/17 12:00 Temperature 98.5 F Pulse Rate 97 H Respiratory Rate 16 Blood Pressure 124/71 Pulse Oximetry 96 Intake & Output 11/11/17 11/12/17 11/12/17 18:59 06:59 18:59 Weight 122.47 kg 122.47 kg Other: Weight On Admission 122.47 kg Narrative: GENERAL: WDWN male patient, in no acute distress. Awake and alert. Poor historian. Appears anxious. SKIN: Warm and dry. Diffuse erythematous papular rash, patient states it is nonpruritic however repetitively itching his skin during the visit HEAD: Atraumatic. Normocephalic. EYES: Right eye cloudy. Left pupil 2mm and reactive. ENT: No nasal bleeding or discharge. Mucous membranes pink and moist. NECK: Trachea midline. CARDIOVASCULAR: Tachycardic. No murmur auscultated. RESPIRATORY: No accessory muscle use. Clear to auscultation. Breath sounds equal bilaterally. GASTROINTESTINAL: Abdomen soft, non-tender, nondistended. Hepatic and splenic margins not palpable. MUSCULOSKELETAL: Extremities without clubbing, cyanosis, or edema. No obvious deformities. NEUROLOGICAL: Awake and alert. No obvious cranial nerve deficits. Motor grossly within normal limits. Five out of 5 muscle strength in the arms and legs. Normal speech with slow but appropriate responses. PSYCHIATRIC: Calm and cooperative. Results - Labs CBC & Chem 7: 11/12/17 04:40 11/12/17 04:40 Labs: Laboratory Results - last 24 hr 11/12/17 11/12/17 11/12/17 04:40 04:40 04:40 WBC 9.2 RBC 4.92 Hgb 15.0 Hct 43.7 MCV 88.8 MCH 30.4 MCHC 34.2 RDW 13.2 Plt Count 202 MPV 10.3 Neut % (Auto) 73.9 H Lymph % (Auto) 15.4 Grady % (Auto) 7.1 Eos % (Auto) 2.7 Baso % (Auto) 0.9 Neut # (Auto) 6.8 Lymph # (Auto) 1.4 Grady # (Auto) 0.7 Eos # (Auto) 0.2 Baso # (Auto) 0.1 WBC Differential . Differential Comment Auto diff final ESR 15 Sodium 138 Potassium 4.1 Chloride 103 Carbon Dioxide 24.0 Anion Gap 11 BUN 17 Creatinine 0.72 Estimated GFR Greater than 89 POC Glucose Random Glucose 324 H Calcium 8.5 Total Bilirubin 0.9 AST 13 L ALT 20 Alkaline Phosphatase 95 Total Protein 7.2 Albumin 3.5 Urine Color Urine Clarity Urine pH Ur Specific Glendo Urine Protein Urine Glucose (UA) Urine Ketones Urine Occult Blood Urine Nitrate Urine Bilirubin Urine Urobilinogen Ur Leukocyte Esterase Urine RBC Ur Squamous Epith Cells Micro UA Comment Ur Microscopic Review Urine Culture Comments Urine Opiates Screen Ur Barbiturates Screen Ur Amphetamines Screen U Benzodiazepines Scrn Urine Cocaine Screen U Cannabinoids Screen 11/12/17 11/12/17 11/12/17 07:05 07:05 08:04 WBC RBC Hgb Hct MCV MCH MCHC RDW Plt Count MPV Neut % (Auto) Lymph % (Auto) Grady % (Auto) Eos % (Auto) Baso % (Auto) Neut # (Auto) Lymph # (Auto) Grady # (Auto) Eos # (Auto) Baso # (Auto) WBC Differential Differential Comment ESR Sodium Potassium Chloride Carbon Dioxide Anion Gap BUN Creatinine Estimated GFR POC Glucose 319 H Random Glucose Calcium Total Bilirubin AST ALT Alkaline Phosphatase Total Protein Albumin Urine Color Straw Urine Clarity Clear Urine pH 5.0 Ur Specific Glendo 1.033 Urine Protein 30 H Urine Glucose (UA) 500 or greater Urine Ketones 80 or greater H Urine Occult Blood Small H Urine Nitrate Negative Urine Bilirubin Negative Urine Urobilinogen Less than 2 Ur Leukocyte Esterase Negative Urine RBC 1 Ur Squamous Epith Cells <1 Micro UA Comment Culture not ind Ur Microscopic Review Not Reportable Urine Culture Comments Culture not ind Urine Opiates Screen Neg Ur Barbiturates Screen Neg Ur Amphetamines Screen Neg U Benzodiazepines Scrn Neg Urine Cocaine Screen Neg U Cannabinoids Screen Neg 11/12/17 10:21 WBC RBC Hgb Hct MCV MCH MCHC RDW Plt Count MPV Neut % (Auto) Lymph % (Auto) Grady % (Auto) Eos % (Auto) Baso % (Auto) Neut # (Auto) Lymph # (Auto) Grady # (Auto) Eos # (Auto) Baso # (Auto) WBC Differential Differential Comment ESR Sodium Potassium Chloride Carbon Dioxide Anion Gap BUN Creatinine Estimated GFR POC Glucose 283 H Random Glucose Calcium Total Bilirubin AST ALT Alkaline Phosphatase Total Protein Albumin Urine Color Urine Clarity Urine pH Ur Specific Glendo Urine Protein Urine Glucose (UA) Urine Ketones Urine Occult Blood Urine Nitrate Urine Bilirubin Urine Urobilinogen Ur Leukocyte Esterase Urine RBC Ur Squamous Epith Cells Micro UA Comment Ur Microscopic Review Urine Culture Comments Urine Opiates Screen Ur Barbiturates Screen Ur Amphetamines Screen U Benzodiazepines Scrn Urine Cocaine Screen U Cannabinoids Screen - Imaging Impressions Head MRI 11/12/17 00:00 CONCLUSION: 1. Focal 7 mm probable acute infarction in the mesial left temporal periventricular white matter. 2. Findings consistent with right-sided retinal detachment/hemorrhage with abnormal signal throughout the orbit consistent with subacute/chronic blood products versus interval treatment. Clinical correlation is recommended. Head CT 11/12/17 03:48 CONCLUSION: Negative noncontrast head CT. . Chest X-Ray 11/12/17 07:14 CONCLUSION: 1. No acute cardiopulmonary disease. Head MRA 11/12/17 07:32 CONCLUSION: No acute intracranial vascular abnormality is identified. Neck MRA 11/12/17 07:32 CONCLUSION: 1. Negative MRA Carotids. Percent stenosis is calculated using the diameter of the stenotic region over the diameter of the normal distal internal carotid artery Caprini VTE Risk Assessment Caprini VTE Risk Assessment: No/Low Risk (score <= 1) Caprini Risk Assessment Model: Point Value = 1 Point Value = 2 Point Value = 3 Point Value = 5 Age 41-60 Minor surgery BMI > 25 kg/m2 Swollen legs Varicose veins or History of unexplained or recurrent spontaneous Oral contraceptives or hormone replacement Sepsis (< 1 month) Serious lung disease, including pneumonia (< 1 month) Abnormal pulmonary function Acute myocardial infarction Congestive heart failure (< 1 month) History of inflammatory bowel disease Medical patient at bed rest Age 61-74 Arthroscopic surgery Major open surgery (> 45 min) Laparoscopic surgery (> 45 min) Malignancy Confined to bed (> 72 hours) Immobilizing plaster cast Central venous access Age >= 75 History of VTE Family history of VTE Factor V Leiden Prothrombin [id number] Lupus anticoagulant Anticardiolipin antibodies Elevated serum homocysteine Heparin-induced thrombocytopenia Other congenital or acquired thrombophilia Stroke (< 1 month) Elective arthroplasty Hip, pelvis, or leg fracture Acute spinal cord injury (< 1 month) Prophylaxis Regimen: Total Risk Factor Score Risk Level Prophylaxis Regimen 0-1 Low Early ambulation 2 Moderate Order ONE of the following: *Sequential Compression Device (SCD) *Heparin 5000 units SQ BID 3-4 Higher Order ONE of the following medications: *Heparin 5000 units SQ TID *Enoxaparin/Lovenox 40 mg SQ daily (WT < 150 kg, CrCl > 30 mL/min) *Enoxaparin/Lovenox 30 mg SQ daily (WT < 150 kg, CrCl > 10-29 mL/min) *Enoxaparin/Lovenox 30 mg SQ BID (WT < 150 kg, CrCl > 30 mL/min) AND/OR *Sequential Compression Device (SCD) 5 or more Highest Order ONE of the following medications: *Heparin 5000 units SQ TID (Preferred with Epidurals) *Enoxaparin/Lovenox 40 mg SQ daily (WT < 150 kg, CrCl > 30 mL/min) *Enoxaparin/Lovenox 30 mg SQ daily (WT < 150 kg, CrCl > 10-29 mL/min) *Enoxaparin/Lovenox 30 mg SQ BID (WT < 150 kg, CrCl > 30 mL/min) AND *Sequential Compression Device (SCD) Assessment and Plan - Plan 47yo male with a PMHX for glaucoma in the right eye and poorly controlled diabetes type I with blood sugars routinely running in the 300s who presents to [facility] ED with complaints of decreased vision and headache. Acute CVA MRI brain +focal 7mm probable acute infarction in the mesial left temporal periventricular white matter Head CT neg MRA neck neg MRA head neg -Consult Neurology, appreciate assistance -Consult stroke navigator -neuro checks -continuous cardiac monitoring -obtain 2D echocardiogram -nursing bedside swallow eval -obtain lipid profile, TSH and HgbA1c -give ASA and statin daily -HOB flat, IVF -PT/OT/ST -fall and seizure precautions -permissive HTN Right eye glaucoma Decreased vision left eye MRI brain 4 mm region of abnormal signal corresponding in the posterior chamber of the right orbit in a configuration consistent with retinal detachment/ hemorrhage. This appears somewhat more prominent than prior CT examination of . Additionally, there is diffusely abnormal signal throughout the posterior and anterior chambers on the right which may reflect old blood products or interval treatment. -Consult ophthalmology, appreciate assistance Type I diabetes, poorly controlled BS 324 -Give 8units regular insulin now -will hold long-acting insulin at this time as patient is n.p.o. -Consult dietitian for diabetic education -Accu-Cheks and insulin sliding scale Diffuse body rash ?bedbugs -treat with application with permethrin and monitor for improvement DVT prophylaxis -bilateral SCD/YANELI hose Code Status: FULL Discussed Condition With: patient, nursing staff, Dr. Wright
[2017-11-12 15:42] LABS: Activated Partial Thrombo Time 24.8 sec (24.3-30.1); Prothrombin Time 10.3 sec (9.8-11.6)
[2017-11-12] MEDS: Aspirin 325 MG Tablet PO SCH (15:45)
[2017-11-12 16:04] LABS: Creatine Kinase 116 U/L (39-308)
[2017-11-12] MEDS: Escitalopram 10 MG Tablet PO SCH (19:44)
--- NOTE | 2017-11-12 19:48 | ECG ---
Date Performed: 11/12/2017 Time Performed: 14:23:06 PTAGE: 47 years EKG: Baseline artifact present Sinus rhythm INFERIOR MYOCARDIAL INFARCTION ABNORMAL ECG No significant change from prior electrocardiogram. DOCTOR: Yunior Lugo Interpretating Date/Time 11/12/2017 19:46:28
--- NOTE | 2017-11-12 20:26 | MB ---
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 He does not take an aspirin a day. He has had a hand tremor for at least several months. He was dizzy in February of this year with some vertigo, he has had a little bit on and off since. This morning, he called his sister because he says he could not see. He is blind in the right eye and has limited vision in the left eye and then he was confused, so they brought him in the hospital. His CT was negative. He had an elevated sugar of 324. Drug screen was negative. MRI shows a small left medial temporal lobe infarct posteriorly, near the occipital horn really of the left ventricle. There is also an old small lacunar type infarct, left periventricular white matter. REVIEW OF SYSTEMS:. Denied any history of hypercholesterolemia, NV, stent, angioplasty, AFib, Coumadin, CABG, chest pain, palpitations. He denied any history of renal, hepatic disease, thyroid disease, lupus, ulcer, cancer, seizure, stroke and his sister denied these too. SOCIAL HISTORY: Not a smoker or drinker. No drugs. Lives with his sister. Not working. FAMILY HISTORY: Negative for cancer, seizure or stroke. ALLERGIES: HE IS ALLERGIC TO LATEX, ERYTHROMYCIN, SULFA, BACTRIM. HOME MEDICATIONS: Insulin only. MEDICINES IN THE HOSPITAL: 1. Aspirin 325 a day. 2. Atorvastatin. 3. Insulin. 4. Lactulose. 5. Lisinopril. 6. Zofran. PHYSICAL EXAMINATION: VITAL SIGNS: Afebrile 96, 16, 110/62. Highest blood pressure initially 161/100. NECK: There were no carotid bruits. HEART: Regular rate and rhythm. I did not detect a murmur. NEUROLOGIC: Pupils are equal. The right pupil is opaque. The left is round and reactive. He has diminished vision, really blind in the upper perez, but can count fingers in the lower perez medially and laterally in the left eye. Extraocular movements intact without nystagmus. Face is symmetric with normal sensation. Tongue was midline. No drift. Normal strength in upper and lower extremities bilaterally. DTRs are absent throughout. Toes are downgoing bilaterally. Pinprick was diminished below the knee bilaterally, but intact in the arms and face and thighs bilaterally. He is not tactile on [id number]. Speech is fluent. He is not aphasic. He says he is nervous, does want to be left alone. LABORATORY DATA: CBC, sedimentation rate, urine drug screen normal. UA shows some protein and glucose. BMP is otherwise normal. LFTs normal. Troponin negative. CPK, albumin all normal. Coags normal. MRI of the brain shows infarcts as noted above. MRA te-moak of Hartmann and neck I reviewed and are normal, including the vertebrobasilar system and city auditor bilaterally. EKG: Sinus rhythm. IMPRESSION: An old lacunar type infarct and a new stroke here. We need to do an echo and a Holter, and I have ordered those. Considering his age, we can do a hypercoagulable screen, although he has a lot of risk factors for stroke. I agree with his statin and aspirin for this time. I am going to start him on some Lexapro for his mood, keep him on some IV hydration. MD CARLTON Larry/ct , 06:00 PM , 06:09 PM
[2017-11-12] MEDS ORDERED: Insulin Detemir Inj 1,000 UNIT/10 ML Vial SQ SCH (21:00)
[2017-11-13] MEDS: Acetaminophen 325 MG Tablet PO PRN ×3 (00:16→14:45)
[2017-11-13] MEDS: Sod Chloride 0.9% Inj 1,000 ML IV.CONT SCH ×3 (04:17→16:52)
[2017-11-13] MEDS: Insulin NovoLIN Regular Correctional Sugar Inj SQ SCH ×5 (04:38→23:50)
[2017-11-13 05:13] LABS: Baso # (Auto) 0.1 th/mm3 (0.0-0.2); Eos # (Auto) 0.3 th/mm3 (0.0-0.4); Eos % (Auto) 4.4 % (0.0-4.0); Hematocrit 42.5 % (39.0-51.0); Hemoglobin 14.1 gm/dL (13.0-17.0); Lymph # (Auto) 1.6 th/mm3 (1.0-4.8); Lymph % (Auto) 22.5 % (9.0-44.0); Mean Corpuscular HGB Conc 33.2 % (32.0-36.0); Mean Corpuscular Hemoglobin 30.1 pg (27.0-34.0); Mean Corpuscular Volume 90.5 fL (80.0-100.0); Mean Platelet Volume 10.1 fL (7.0-11.0); Mono # (Auto) 0.5 th/mm3 (0.0-0.9); Mono % (Auto) 7.4 % (0.0-8.0); Neut # (Auto) 4.6 th/mm3 (1.8-7.7); Neut % (Auto) 64.7 % (16.0-70.0); Platelet Count 212 th/mm3 (150-450); Red Cell Distribution Width 13.6 % (11.6-17.2); White Blood Count 7.2 th/mm3 (4.0-11.0)
[2017-11-13 05:33] LABS: Alanine Aminotransferase 18 U/L (12-78); Albumin 3.4 g/dL (3.4-5.0); Anion Gap 9 meq/L (5-15); Aspartate Aminotransferase 8 U/L (15-37); Blood Urea Nitrogen 12 mg/dL (7-18); Calcium 8.5 mg/dL (8.5-10.1); Carbon Dioxide 24.3 meq/L (21.0-32.0); Chloride 105 meq/L (98-107); Cholesterol 221 mg/dL (120-200); Glomerular Filtration Rate Greater Than 89 mL/min (>89); Glucose,Random 247 mg/dL (74-106); Potassium 3.9 meq/L (3.5-5.1); Sodium 138 meq/L (136-145); Triglycerides 222 mg/dL (42-150)
[2017-11-13 06:40] LABS: Alkaline Phosphatase 76 U/L (45-117); Chol/HDL Ratio 5.89 Ratio; HDL Cholesterol 37.5 mg/dL (40.0-60.0); LDL Cholesterol,Calculated 139 mg/dL (0-99); Total Protein 6.9 g/dL (6.4-8.2); Vitamin B12 305 pg/mL (193-986)
[2017-11-13] MEDS ORDERED: Insulin Detemir Inj 1,000 UNIT/10 ML Vial SQ SCH (08:00)
--- NOTE | 2017-11-13 08:02 | P.PN ---
Subjective Interval history: Follow-up on patient with CVA. Patient seen and examined. More alert this morning. He continues to have decreased vision in the left eye. States he has headache which is chronic and unchanged. He denies any chest pain or shortness of breath. Denies any nausea, vomiting or abdominal pain. Discussed with sister who is at the bedside who states he appears to be at his baseline cognitively. Physical Exam Vital signs: Vital Signs 11/12/17 08:10 11/12/17 10:01 11/12/17 12:00 Temperature 98.0 F 98.5 F Pulse Rate 100 H 103 H 97 H Respiratory Rate 20 12 16 Blood Pressure 142/91 H 140/79 124/71 Pulse Oximetry 95 96 11/12/17 16:40 11/12/17 20:00 Temperature 98.8 F 98.8 F Pulse Rate 96 H 103 H Respiratory Rate 16 20 Blood Pressure 110/62 137/81 Pulse Oximetry 95 95 Intake & Output 11/12/17 11/13/17 11/13/17 18:59 06:59 18:59 Intake Total 1000 / 1000 Balance 1000 / 1000 Weight 122.47 kg Intake: IV 1000 / 1000 NS Inj 1,000 ML @ 100 mls/hr IV 1000 / 1000 .CONT .Q10H [facility] Rx#:[id number] Other: # Voids 2 Weight On Admission 122.47 kg Narrative: GENERAL: WDWN male patient, in no acute distress. Awake and alert. Sister is at the bedside. SKIN: Warm and dry. Diffuse erythematous papular rash. HEAD: Atraumatic. Normocephalic. EYES: Right eye cloudy. Left pupil 2mm and reactive. ENT: No nasal bleeding or discharge. Mucous membranes pink and moist. NECK: Trachea midline. CARDIOVASCULAR: Regular rate and rhythm. No murmur auscultated. RESPIRATORY: No accessory muscle use. Clear to auscultation. Breath sounds equal bilaterally. GASTROINTESTINAL: Abdomen soft, non-tender, nondistended. +BS. MUSCULOSKELETAL: Extremities without clubbing, cyanosis, or edema. No obvious deformities. NEUROLOGICAL: Awake and alert. No obvious cranial nerve deficits. Motor grossly within normal limits. Able to move all extremities spontaneously. Normal speech. PSYCHIATRIC: Calm and cooperative. Results - Labs CBC & Chem 7: 11/13/17 04:48 11/13/17 04:48 Laboratory Results - last 24 hr 11/12/17 11/12/17 11/12/17 08:04 10:21 14:47 WBC RBC Hgb Hct MCV MCH MCHC RDW Plt Count MPV Neut % (Auto) Lymph % (Auto) [place] % (Auto) Eos % (Auto) Baso % (Auto) Neut # (Auto) Lymph # (Auto) [place] # (Auto) Eos # (Auto) Baso # (Auto) WBC Differential Differential Comment PT INR APTT Fibrinogen Sodium Potassium Chloride Carbon Dioxide Anion Gap BUN Creatinine Estimated GFR POC Glucose 319 H 283 H 304 H Random Glucose Calcium Total Bilirubin AST ALT Alkaline Phosphatase Total Creatine Kinase Troponin I Total Protein Albumin Triglycerides Cholesterol LDL Cholesterol, Calc HDL Cholesterol Cholesterol/HDL Ratio Vitamin B12 TSH 11/12/17 11/12/17 11/12/17 14:55 14:55 19:30 WBC RBC Hgb Hct MCV MCH MCHC RDW Plt Count MPV Neut % (Auto) Lymph % (Auto) [place] % (Auto) Eos % (Auto) Baso % (Auto) Neut # (Auto) Lymph # (Auto) [place] # (Auto) Eos # (Auto) Baso # (Auto) WBC Differential Differential Comment PT 10.3 INR 1.0 APTT 24.8 Fibrinogen 375 Sodium Potassium Chloride Carbon Dioxide Anion Gap BUN Creatinine Estimated GFR POC Glucose 330 H Random Glucose Calcium Total Bilirubin AST ALT Alkaline Phosphatase Total Creatine Kinase 116 Troponin I Less than 0.02 L Total Protein Albumin Triglycerides Cholesterol LDL Cholesterol, Calc HDL Cholesterol Cholesterol/HDL Ratio Vitamin B12 TSH 11/12/17 11/12/17 11/13/17 20:35 23:31 04:25 WBC RBC Hgb Hct MCV MCH MCHC RDW Plt Count MPV Neut % (Auto) Lymph % (Auto) [place] % (Auto) Eos % (Auto) Baso % (Auto) Neut # (Auto) Lymph # (Auto) [place] # (Auto) Eos # (Auto) Baso # (Auto) WBC Differential Differential Comment PT INR APTT Fibrinogen Sodium Potassium Chloride Carbon Dioxide Anion Gap BUN Creatinine Estimated GFR POC Glucose 380 H 268 H 247 H Random Glucose Calcium Total Bilirubin AST ALT Alkaline Phosphatase Total Creatine Kinase Troponin I Total Protein Albumin Triglycerides Cholesterol LDL Cholesterol, Calc HDL Cholesterol Cholesterol/HDL Ratio Vitamin B12 TSH 11/13/17 11/13/17 04:48 04:48 WBC 7.2 RBC 4.70 Hgb 14.1 Hct 42.5 MCV 90.5 MCH 30.1 MCHC 33.2 RDW 13.6 Plt Count 212 MPV 10.1 Neut % (Auto) 64.7 Lymph % (Auto) 22.5 [place] % (Auto) 7.4 Eos % (Auto) 4.4 H Baso % (Auto) 1.0 Neut # (Auto) 4.6 Lymph # (Auto) 1.6 [place] # (Auto) 0.5 Eos # (Auto) 0.3 Baso # (Auto) 0.1 WBC Differential . Differential Comment Auto diff final PT INR APTT Fibrinogen Sodium 138 Potassium 3.9 Chloride 105 Carbon Dioxide 24.3 Anion Gap 9 BUN 12 Creatinine 0.60 Estimated GFR Greater than 89 POC Glucose Random Glucose 247 H Calcium 8.5 Total Bilirubin 1.1 H AST 8 L ALT 18 Alkaline Phosphatase 76 Total Creatine Kinase Troponin I Total Protein 6.9 Albumin 3.4 Triglycerides 222 H Cholesterol 221 H LDL Cholesterol, Calc 139 H HDL Cholesterol 37.5 L Cholesterol/HDL Ratio 5.89 Vitamin B12 305 TSH 1.490 - Imaging Impressions Head MRI 11/12/17 00:00 CONCLUSION: 1. Focal 7 mm probable acute infarction in the mesial left temporal periventricular white matter. 2. Findings consistent with right-sided retinal detachment/hemorrhage with abnormal signal throughout the orbit consistent with subacute/chronic blood products versus interval treatment. Clinical correlation is recommended. Head MRA 11/12/17 07:32 CONCLUSION: No acute intracranial vascular abnormality is identified. Neck MRA 11/12/17 07:32 CONCLUSION: 1. Negative MRA Carotids. Percent stenosis is calculated using the diameter of the stenotic region over the diameter of the normal distal internal carotid artery Assessment and Plan - Plan 47yo male with a PMHX for glaucoma in the right eye and poorly controlled diabetes type I with blood sugars routinely running in the 300s who presents to [facility] ED with complaints of decreased vision and headache. Acute CVA MRI brain +focal 7mm probable acute infarction in the mesial left temporal periventricular white matter Head CT neg MRA neck neg MRA head neg LDL 139, TG 222 -Neurology following, appreciate assistance. Holter ordered. Hypercoagulable workup. Started on Lexapro. -Echo pending -neuro checks -continuous cardiac monitoring -give ASA and statin daily -PT/OT/ST - PT recommending PT at rehab, patient is self pay. Will increase PT to daily. -fall and seizure precautions Right eye glaucoma Decreased vision left eye MRI brain 4 mm region of abnormal signal corresponding in the posterior chamber of the right orbit in a configuration consistent with retinal detachment/ hemorrhage. This appears somewhat more prominent than prior CT examination of . Additionally, there is diffusely abnormal signal throughout the posterior and anterior chambers on the right which may reflect old blood products or interval treatment. -Evaluated by ophthalmology, appreciate assistance. Follow-up as outpatient for further imaging. Type I diabetes, poorly controlled HgbA1c 12.5 -Blood sugar still not well controlled. Increase Levemir to 10 units twice daily. Add 3u Aspart TIDAC. -Consult dietitian for diabetic education -Accu-Cheks and insulin sliding scale Diffuse body rash ?bedbugs -treat with application with permethrin and monitor for improvement DVT prophylaxis -bilateral SCD/YANELI hose Code Status: FULL Discussed Condition With: patient, sister, Dr. Coker, nursing staff Discharge Planning: Not ready for discharge. PT recommending rehab due to inability to maintain static standing, extremely poor balance.
--- NOTE | 2017-11-13 09:29 | P.PNNEU ---
Subjective Subjective Comments: sr Active Medications: Active Medications Acetaminophen (Tylenol) 650 mg PO Q4H PRN PRN Reason: HEADACHE Last Admin: 11/13/17 06:44 Dose: 650 mg Al Hydroxide/Mg Hydroxide (Milk Of Magnesia Liq) 30 ml PO Q12H PRN PRN Reason: Mild Constipation Aspirin (Aspirin) 325 mg PO DAILY [facility] Last Admin: 11/12/17 15:45 Dose: 325 mg Atorvastatin Calcium (Lipitor) 80 mg PO DAILY [facility] Last Admin: 11/12/17 15:45 Dose: 80 mg Bisacodyl (Dulcolax Supp) 10 mg RECTAL DAILY PRN PRN Reason: SEVERE CONSITIPATION Dextrose (D50w Vial) 50 ml IV.PUSH UNSCH PRN PRN Reason: PER HYPOGLYCEMIA PROTOCOL Escitalopram Oxalate (Lexapro) 10 mg PO DAILY [facility] Last Admin: 11/12/17 19:44 Dose: 10 mg Glucagon (Glucagon Inj) 1 mg OTHER PRN PRN PRN Reason: for Hypoglycemia Protocol Sodium Chloride (Ns Inj) 1,000 mls @ 70 mls/hr IV.CONT .[id number] [facility] Last Admin: 11/13/17 05:46 Dose: Not Given Insulin Detemir (Levemir Inj) 10 unit SQ BID [facility] Insulin Human Regular (Novolin R Correctional Sugar Inj) 0 units SQ ACHS [facility]; Protocol Last Admin: 11/13/17 04:38 Dose: 4 units Lactulose (Lactulose Liq) 30 ml PO DAILY PRN PRN Reason: SEVERE CONSITIPATION Lisinopril (Prinivil) 5 mg PO DAILY [facility] Last Admin: 11/12/17 11:45 Dose: 5 mg Ondansetron HCl (Zofran Inj) 4 mg IV.PUSH Q6H PRN PRN Reason: NAUSEA OR VOMITING Last Admin: 11/12/17 11:48 Dose: 4 mg Senna/Docusate Sodium (Cornelia-Colace) 1 tab PO BID [facility] Last Admin: 11/12/17 21:14 Dose: Not Given Sennosides (Senokot) 17.2 mg PO Q12H PRN PRN Reason: Moderate Constipation Allergies/Adverse Reactions: Allergies Allergy/AdvReac Type Severity Reaction Status Date / Time erythromycin base Allergy Severe RASH Verified 11/12/17 01:30 latex Allergy Severe RASH Verified 11/12/17 01:30 sulfamethoxazole Allergy Unknown Rash Verified 11/12/17 01:30 trimethoprim Allergy Unknown Rash Verified 11/12/17 01:30 Physical Exam Vital signs: Vital Signs 11/12/17 10:01 11/12/17 12:00 11/12/17 16:40 Temperature 98.0 F 98.5 F 98.8 F Pulse Rate 103 H 97 H 96 H Respiratory Rate 12 16 16 Blood Pressure 140/79 124/71 110/62 Pulse Oximetry 95 96 95 11/12/17 20:00 11/13/17 08:00 Temperature 98.8 F 98.5 F Pulse Rate 103 H 87 Respiratory Rate 20 18 Blood Pressure 137/81 125/75 Pulse Oximetry 95 97 Intake & Output 11/12/17 11/13/17 11/13/17 18:59 06:59 18:59 Intake Total 1000 / 1000 1000 / 1000 Balance 1000 / 1000 1000 / 1000 Weight 122.47 kg Intake: IV 1000 / 1000 1000 / 1000 NS Inj 1,000 ML @ 100 mls/hr IV 1000 / 1000 1000 / 1000 .CONT .Q10H [facility] Rx#:[id number] Other: # Voids 2 Weight On Admission 122.47 kg Narrative: awake counts fingers for me from foot of bed bue nl nl speech not nervous now Objective Laboratory Results - last 24 hr 11/12/17 11/12/17 11/12/17 10:21 14:47 14:55 WBC RBC Hgb Hct MCV MCH MCHC RDW Plt Count MPV Neut % (Auto) Lymph % (Auto) [place] % (Auto) Eos % (Auto) Baso % (Auto) Neut # (Auto) Lymph # (Auto) [place] # (Auto) Eos # (Auto) Baso # (Auto) WBC Differential Differential Comment PT 10.3 INR 1.0 APTT 24.8 Fibrinogen 375 Sodium Potassium Chloride Carbon Dioxide Anion Gap BUN Creatinine Estimated GFR POC Glucose 283 H 304 H Random Glucose Calcium Total Bilirubin AST ALT Alkaline Phosphatase Total Creatine Kinase Troponin I Total Protein Albumin Triglycerides Cholesterol LDL Cholesterol, Calc HDL Cholesterol Cholesterol/HDL Ratio Vitamin B12 TSH 11/12/17 11/12/17 11/12/17 14:55 19:30 20:35 WBC RBC Hgb Hct MCV MCH MCHC RDW Plt Count MPV Neut % (Auto) Lymph % (Auto) [place] % (Auto) Eos % (Auto) Baso % (Auto) Neut # (Auto) Lymph # (Auto) [place] # (Auto) Eos # (Auto) Baso # (Auto) WBC Differential Differential Comment PT INR APTT Fibrinogen Sodium Potassium Chloride Carbon Dioxide Anion Gap BUN Creatinine Estimated GFR POC Glucose 330 H 380 H Random Glucose Calcium Total Bilirubin AST ALT Alkaline Phosphatase Total Creatine Kinase 116 Troponin I Less than 0.02 L Total Protein Albumin Triglycerides Cholesterol LDL Cholesterol, Calc HDL Cholesterol Cholesterol/HDL Ratio Vitamin B12 TSH 11/12/17 11/13/17 11/13/17 23:31 04:25 04:48 WBC RBC Hgb Hct MCV MCH MCHC RDW Plt Count MPV Neut % (Auto) Lymph % (Auto) [place] % (Auto) Eos % (Auto) Baso % (Auto) Neut # (Auto) Lymph # (Auto) [place] # (Auto) Eos # (Auto) Baso # (Auto) WBC Differential Differential Comment PT INR APTT Fibrinogen Sodium 138 Potassium 3.9 Chloride 105 Carbon Dioxide 24.3 Anion Gap 9 BUN 12 Creatinine 0.60 Estimated GFR Greater than 89 POC Glucose 268 H 247 H Random Glucose 247 H Calcium 8.5 Total Bilirubin 1.1 H AST 8 L ALT 18 Alkaline Phosphatase 76 Total Creatine Kinase Troponin I Total Protein 6.9 Albumin 3.4 Triglycerides 222 H Cholesterol 221 H LDL Cholesterol, Calc 139 H HDL Cholesterol 37.5 L Cholesterol/HDL Ratio 5.89 Vitamin B12 305 TSH 1.490 11/13/17 11/13/17 04:48 07:43 WBC 7.2 RBC 4.70 Hgb 14.1 Hct 42.5 MCV 90.5 MCH 30.1 MCHC 33.2 RDW 13.6 Plt Count 212 MPV 10.1 Neut % (Auto) 64.7 Lymph % (Auto) 22.5 [place] % (Auto) 7.4 Eos % (Auto) 4.4 H Baso % (Auto) 1.0 Neut # (Auto) 4.6 Lymph # (Auto) 1.6 [place] # (Auto) 0.5 Eos # (Auto) 0.3 Baso # (Auto) 0.1 WBC Differential . Differential Comment Auto diff final PT INR APTT Fibrinogen Sodium Potassium Chloride Carbon Dioxide Anion Gap BUN Creatinine Estimated GFR POC Glucose 213 H Random Glucose Calcium Total Bilirubin AST ALT Alkaline Phosphatase Total Creatine Kinase Troponin I Total Protein Albumin Triglycerides Cholesterol LDL Cholesterol, Calc HDL Cholesterol Cholesterol/HDL Ratio Vitamin B12 TSH Review/Management - Review/Management Plan: imp labs ok hyper pend ldl inc on statin and asa small cva fu echo and holter and hyper if echo neg and holter done ok dc on asa and statin wt loss lexapro
[2017-11-13] MEDS: Lisinopril 5 MG Tablet PO SCH (09:53)
[2017-11-13] MEDS: Aspirin 325 MG Tablet PO SCH (09:53)
[2017-11-13] MEDS: Senna/Docusate Sodium 8.6/50 MG Tablet PO SCH ×2 (09:53→23:21)
[2017-11-13] MEDS: Escitalopram 10 MG Tablet PO SCH (09:53)
--- NOTE | 2017-11-13 11:46 | P.CON ---
History of Present Illness Service: Ophthalmology Reason for Consult: blurry vision Primary Care Provider: No Primary Care Physician Family Provider: No Primary Care Physician Chief Complaint: decreased vision, headache History of Present Illness: 47 yo M with a history of poorly controlled diabetes type I who presents to ED with complaints of decreased vision OS and headache. Patient is a poor historian so most of the history is obtained from his sister who is his caregiver. He began having a headache since yesterday and some altered mental status. MRI brain reveals focal 7 mm acute infarction in the mesial left temporal periventricular white matter and findings consistent with right-sided retinal detachment/hemorrhage. 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 He cannot remember the last time he saw an bundler - it has been years. PMF - History History Provided By: Patient, Family Member, Medical Record - Medical History Medical History: Medical History (Last Reviewed 11/12/17 @ 14:[address]) Diabetes Glaucoma Neuropathy Retinopathy - Surgical History Surgical History: Surgical History (Last Reviewed 11/12/17 @ 14:[address]) S/P right knee arthroscopy - Family History Family History: Family History (Last Updated 11/12/17 @ 13:18 by Lorena Metz) Other CVA (cerebral vascular accident) Diabetes - Tobacco History Second Hand Smoke Exposure: No Tobacco Use In Past 30 Days: No Smoking Status: Former smoker Tobacco Type: Cigarettes - Alcohol History How Often Do You Have a Drink Containing Alcohol: Never - Substance Use History Substance History: No History of Abuse - Travel History Recent Travel in the [place] Within the Last 8 Weeks: No Recent Travel Out of the Country Within the Last 8 Weeks: No - Immunization History Tetanus Immunization: Unsure Hx Influenza Vaccine This Season: No Medications and Allergies Active Medications: Active Medications Acetaminophen (Tylenol) 650 mg PO Q4H PRN PRN Reason: HEADACHE Last Admin: 11/13/17 06:44 Dose: 650 mg Al Hydroxide/Mg Hydroxide (Milk Of Magnesia Liq) 30 ml PO Q12H PRN PRN Reason: Mild Constipation Aspirin (Aspirin) 325 mg PO DAILY [facility] Last Admin: 11/13/17 09:53 Dose: 325 mg Atorvastatin Calcium (Lipitor) 80 mg PO DAILY [facility] Last Admin: 11/13/17 09:53 Dose: 80 mg Bisacodyl (Dulcolax Supp) 10 mg RECTAL DAILY PRN PRN Reason: SEVERE CONSITIPATION Dextrose (D50w Vial) 50 ml IV.PUSH UNSCH PRN PRN Reason: PER HYPOGLYCEMIA PROTOCOL Escitalopram Oxalate (Lexapro) 10 mg PO DAILY [facility] Last Admin: 11/13/17 09:53 Dose: 10 mg Glucagon (Glucagon Inj) 1 mg OTHER PRN PRN PRN Reason: for Hypoglycemia Protocol Sodium Chloride (Ns Inj) 1,000 mls @ 70 mls/hr IV.CONT .[id number] [facility] Last Admin: 11/13/17 05:46 Dose: Not Given Insulin Detemir (Levemir Inj) 10 unit SQ BID [facility] Last Admin: 11/13/17 09:51 Dose: 10 unit Insulin Human Regular (Novolin R Correctional Sugar Inj) 0 units SQ ACHS [facility]; Protocol Last Admin: 11/13/17 09:51 Dose: 4 units Lactulose (Lactulose Liq) 30 ml PO DAILY PRN PRN Reason: SEVERE CONSITIPATION Lisinopril (Prinivil) 5 mg PO DAILY [facility] Last Admin: 11/13/17 09:53 Dose: 5 mg Ondansetron HCl (Zofran Inj) 4 mg IV.PUSH Q6H PRN PRN Reason: NAUSEA OR VOMITING Last Admin: 11/12/17 11:48 Dose: 4 mg Senna/Docusate Sodium (Cornelia-Colace) 1 tab PO BID [facility] Last Admin: 11/13/17 09:53 Dose: Not Given Sennosides (Senokot) 17.2 mg PO Q12H PRN PRN Reason: Moderate Constipation Allergies Allergy/AdvReac Type Severity Reaction Status Date / Time erythromycin base Allergy Severe RASH Verified 11/12/17 01:30 latex Allergy Severe RASH Verified 11/12/17 01:30 sulfamethoxazole Allergy Unknown Rash Verified 11/12/17 01:30 trimethoprim Allergy Unknown Rash Verified 11/12/17 01:30 Home Medications Medication Instructions Recorded Confirmed Type Humulin N NPH U-100 Insulin 11/12/17 History Humulin R Regular U-100 Insuln 11/12/17 History Physical Exam Vital signs: Vital Signs 11/12/17 12:00 11/12/17 16:40 11/12/17 20:00 Temperature 98.5 F 98.8 F 98.8 F Pulse Rate 97 H 96 H 103 H Respiratory Rate 16 16 20 Blood Pressure 124/71 110/62 137/81 Pulse Oximetry 96 95 95 11/13/17 08:00 Temperature 98.5 F Pulse Rate 87 Respiratory Rate 18 Blood Pressure 125/75 Pulse Oximetry 97 Intake & Output 11/12/17 11/13/17 11/13/17 18:59 06:59 18:59 Intake Total 1000 / 1000 1000 / 1000 Output Total 1000 / 1000 Balance 1000 / 1000 0 / 0 Weight 122.47 kg Intake: IV 1000 / 1000 1000 / 1000 NS Inj 1,000 ML @ 100 mls/hr IV 1000 / 1000 1000 / 1000 .CONT .Q10H [facility] Rx#:[id number] Output: Urine 1000 / 1000 Other: # Voids 2 Weight On Admission 122.47 kg - Detailed Eye Exam Comments: Va cc at near OD NLP, OS 20/200 EOM full OU, no diplopia CVF unable Pupils 2-1 OS, unable OD IOP normal to palpation OU Anterior exam OD - normal eyelid, C/S W&Q, K NV, AC deep, pupil irregular, white cataract OS - normal eyelid, C/S W&Q, K clear, AC deep, pupil round, lens clear Dilated exam OD - no view OS - ON s/p/f, ves normal, vit clear, severe NPDR Assessment and Plan - Assessment (1) End-stage glaucoma Code(s): H40.9 - Unspecified glaucoma Status: Chronic Plan: 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 (2) Severe nonproliferative diabetic retinopathy Code(s): E11.3499 - Type 2 diabetes mellitus with severe nonproliferative diabetic retinopathy without macular edema, unspecified eye Status: Acute Plan: Due to uncontrolled DM type I - control underlying disease. Follow up as outpatient for further imaging.
[2017-11-13 13:35] LABS: Hemoglobin A1c 12.5 % (4.3-6.0)
--- NOTE | 2017-11-13 16:02 | ECHRPT ---
Indication: CVA/TIA CONCLUSIONS Normal left ventricular size. Wall thickness is normal. The left ventricular systolic function is low normal with an estimated ejection fraction in the rang e of 50- 55%. Trace mitral valve regurgitation. There is trace tricuspid valve regurgitation. Trivial pulmonary valve regurgitation. BP: / HR: Rhythm: Sinus MEASUREMENTS (Male / Female) Normal Values Technical Quality:Technically difficult study 2D ECHO LV Diastolic Diameter PLAX 3.8 cm 4.2 - 5.9 / 3.9 - 5.3 cm LV Systolic Diameter PLAX 2.8 cm IVS Diastolic Thickness 0.9 cm 0.6 - 1.0 / 0.6 - 0.9 cm LVPW Diastolic Thickness 0.9 cm 0.6 - 1.0 / 0.6 - 0.9 cm LV Relative Wall Thickness 0.5 LVOT Diameter 2.2 cm Aortic Root Diameter 3.2 cm M-MODE AV Cusp Separation MM 2.0 cm DOPPLER AV Peak Velocity 95.1 cm/s AV Peak Gradient 3.6 mmHg AV Mean Gradient 2.0 mmHg AV Velocity Time Integral 17.2 cm LVOT Peak Velocity 94.7 cm/s LVOT Peak Gradient 3.6 mmHg LVOT Velocity Time Integral 16.9 cm AV Area Cont Eq vti 3.7 cm AV Area Cont Eq pk 3.8 cm Mitral E Point Velocity 91.3 cm/s Mitral A Point Velocity 92.3 cm/s Mitral E to A Ratio 1.0 LV E' Lateral Velocity 8.5 cm/s Mitral E to LV E' Lateral Ratio 10.8 LV E' Septal Velocity 8.7 cm/s Mitral E to LV E' Septal Ratio 10.5 PV Peak Velocity 60.2 cm/s PV Peak Gradient 1.4 mmHg FINDINGS LEFT VENTRICLE Normal left ventricular size. Wall thickness is normal. The left ventricular systolic function is low normal with an estimated ejection fraction in the rang e of 50- 55%. RIGHT VENTRICLE Normal right ventricular size and systolic function. LEFT ATRIUM The left atrial size is normal. RIGHT ATRIUM The right atrial size is normal. ATRIAL SEPTUM No atrial level shunt is demonstrated by color flow Doppler interrogation. AORTA The aortic root and proximal ascending aorta are normal in size on limited imaging. MITRAL VALVE Trace mitral valve regurgitation. AORTIC VALVE Trileaflet aortic valve. No aortic valve stenosis or regurgitation. TRICUSPID VALVE There is trace tricuspid valve regurgitation. PULMONARY VALVE Trivial pulmonary valve regurgitation. VESSELS The inferior vena cava is normal in size. PERICARDIUM No pericardial effusion. Severiano Harding MD (Electronically Signed) Final Date:13 November 2017 16:01
[2017-11-13] MEDS: Insulin Detemir Inj 1,000 UNIT/10 ML Vial SQ SCH (17:56)
--- NOTE | 2017-11-14 08:53 | P.PNNEU ---
Subjective Subjective Comments: no new co less nervous Active Medications: Active Medications Acetaminophen (Tylenol) 650 mg PO Q4H PRN PRN Reason: HEADACHE Last Admin: 11/13/17 14:45 Dose: 650 mg Al Hydroxide/Mg Hydroxide (Milk Of Magnesia Liq) 30 ml PO Q12H PRN PRN Reason: Mild Constipation Aspirin (Aspirin) 325 mg PO DAILY [facility] Last Admin: 11/13/17 09:53 Dose: 325 mg Atorvastatin Calcium (Lipitor) 80 mg PO DAILY [facility] Last Admin: 11/13/17 09:53 Dose: 80 mg Bisacodyl (Dulcolax Supp) 10 mg RECTAL DAILY PRN PRN Reason: SEVERE CONSITIPATION Cyanocobalamin (Vitamin B12) 1,000 mcg PO DAILY [facility] Dextrose (D50w Vial) 50 ml IV.PUSH UNSCH PRN PRN Reason: PER HYPOGLYCEMIA PROTOCOL Escitalopram Oxalate (Lexapro) 10 mg PO DAILY [facility] Last Admin: 11/13/17 09:53 Dose: 10 mg Glucagon (Glucagon Inj) 1 mg OTHER PRN PRN PRN Reason: for Hypoglycemia Protocol Sodium Chloride (Ns Inj) 1,000 mls @ 70 mls/hr IV.CONT .[id number] [facility] Last Admin: 11/13/17 16:52 Dose: Not Given Insulin Aspart (Novolog Inj) 6 units SQ TIDAC [facility] Insulin Detemir (Levemir Inj) 12 unit SQ BID [facility] Last Admin: 11/13/17 17:56 Dose: 12 unit Insulin Human Regular (Novolin R Correctional Sugar Inj) 0 units SQ ACHS [facility]; Protocol Last Admin: 11/13/17 23:50 Dose: 12 units Lactulose (Lactulose Liq) 30 ml PO DAILY PRN PRN Reason: SEVERE CONSITIPATION Lisinopril (Prinivil) 5 mg PO DAILY [facility] Last Admin: 11/13/17 09:53 Dose: 5 mg Ondansetron HCl (Zofran Inj) 4 mg IV.PUSH Q6H PRN PRN Reason: NAUSEA OR VOMITING Last Admin: 11/12/17 11:48 Dose: 4 mg Senna/Docusate Sodium (Cornelia-Colace) 1 tab PO BID [facility] Last Admin: 11/13/17 23:21 Dose: Not Given Sennosides (Senokot) 17.2 mg PO Q12H PRN PRN Reason: Moderate Constipation Allergies/Adverse Reactions: Allergies Allergy/AdvReac Type Severity Reaction Status Date / Time erythromycin base Allergy Severe RASH Verified 11/12/17 01:30 latex Allergy Severe RASH Verified 11/12/17 01:30 sulfamethoxazole Allergy Unknown Rash Verified 11/12/17 01:30 trimethoprim Allergy Unknown Rash Verified 11/12/17 01:30 Physical Exam Vital signs: Vital Signs 11/13/17 09:00 11/13/17 16:00 11/13/17 20:00 Temperature 98.3 F 98.1 F Pulse Rate 90 91 H 101 H Respiratory Rate 16 19 Blood Pressure 138/74 141/84 H Pulse Oximetry 98 96 11/14/17 06:37 11/14/17 08:00 Temperature 98.2 F 97.6 F Pulse Rate 97 H 86 Respiratory Rate 17 12 Blood Pressure 105/73 142/87 H Pulse Oximetry 96 92 L Intake & Output 11/13/17 11/14/17 11/14/17 18:59 06:59 18:59 Intake Total 1000 / 1000 Output Total 2200 / 2200 Balance -1200 / -1200 Intake: IV 1000 / 1000 NS Inj 1,000 ML @ 100 mls/hr IV 1000 / 1000 .CONT .Q10H [facility] Rx#:[id number] Output: Urine 2200 / 2200 Other: Date of Last Bowel Movement 11/13/17 11/13/17 Narrative: awake alert sr moves all well Objective Laboratory Results - last 24 hr 11/13/17 11/13/17 11/13/17 04:48 12:49 16:44 POC Glucose 238 H 299 H Hemoglobin A1c 12.5 H 11/13/17 23:13 POC Glucose 358 H Hemoglobin A1c Review/Management - Review/Management Plan: imp labs ok hyper pend ldl inc on statin and asa small cva fu echo and holter and hyper if echo neg and holter done ok dc on asa and statin wt loss lexapro 11/14/17 stable overnoc echo nl on asa and statin can dc after holter done and will fu office make sure u dw his sister what he is supposed to be taking after dc needs optho fu wt loss will do cardionet op if holter neg fu hyper screen
[2017-11-14] MEDS: Insulin Detemir Inj 1,000 UNIT/10 ML Vial SQ SCH ×2 (08:54→22:23)
[2017-11-14] MEDS: Aspirin 325 MG Tablet PO SCH (08:54)
[2017-11-14] MEDS: Insulin NovoLIN Regular Correctional Sugar Inj SQ SCH ×4 (08:54→22:24)
[2017-11-14] MEDS: Sod Chloride 0.9% Inj 1,000 ML IV.CONT SCH (08:54)
[2017-11-14] MEDS: Escitalopram 10 MG Tablet PO SCH (08:54)
[2017-11-14] MEDS: Lisinopril 5 MG Tablet PO SCH (08:55)
[2017-11-14] MEDS: Senna/Docusate Sodium 8.6/50 MG Tablet PO SCH ×2 (08:55→22:24)
--- NOTE | 2017-11-14 13:28 | P.PN ---
Subjective Interval history: Follow-up on patient with CVA. Patient seen and examined. Patient denies any new complaints. States he feels alright. No change in vision. Denies any headache or dizziness. Denies any chest pain or dyspnea. Denies any N/V or abdominal pain. DW sister Ifeoma at the bedside, patient has 16 stairs to go up to reach their apartment. She does not believe she can get him safely into their apt. Physical Exam Vital signs: Vital Signs 11/13/17 16:00 11/13/17 20:00 11/13/17 20:15 Temperature 98.3 F 98.1 F Pulse Rate 91 H 101 H 97 H Respiratory Rate 16 19 Blood Pressure 138/74 141/84 H Pulse Oximetry 98 96 11/14/17 00:00 11/14/17 06:37 11/14/17 08:00 Temperature 98.2 F 97.6 F Pulse Rate 93 H 97 H 86 Respiratory Rate 17 12 Blood Pressure 105/73 142/87 H Pulse Oximetry 96 92 L 11/14/17 08:56 11/14/17 12:00 11/14/17 13:04 Temperature 98.6 F Pulse Rate 89 82 92 H Respiratory Rate 16 Blood Pressure 135/71 Pulse Oximetry 96 Intake & Output 11/13/17 11/14/17 11/14/17 18:59 06:59 18:59 Intake Total 1000 / 1000 Output Total 2200 / 2200 Balance -1200 / -1200 Intake: IV 1000 / 1000 NS Inj 1,000 ML @ 100 mls/hr IV 1000 / 1000 .CONT .Q10H [facility] Rx#:[id number] Output: Urine 2200 / 2200 Other: Date of Last Bowel Movement 11/13/17 11/13/17 Narrative: GENERAL: WDWN male patient, in no acute distress. Awake and alert. Sister is at the bedside. SKIN: Warm and dry. Diffuse erythematous papular rash, improving. HEAD: Atraumatic. Normocephalic. EYES: Right eye cloudy. Left pupil 2mm and reactive. ENT: No nasal bleeding or discharge. Mucous membranes pink and moist. NECK: Trachea midline. CARDIOVASCULAR: Regular rate and rhythm. No murmur auscultated. RESPIRATORY: No accessory muscle use. Clear to auscultation. Breath sounds equal bilaterally. GASTROINTESTINAL: Abdomen soft, non-tender, nondistended. +BS. MUSCULOSKELETAL: Extremities without clubbing, cyanosis, or edema. No obvious deformities. NEUROLOGICAL: Awake and alert. No obvious cranial nerve deficits. Motor grossly within normal limits. Able to move all extremities spontaneously. Normal speech. PSYCHIATRIC: Calm and cooperative. Results - Labs CBC & Chem 7: 11/13/17 04:48 11/13/17 04:48 Laboratory Results - last 24 hr 11/13/17 11/13/17 11/13/17 04:48 16:44 23:13 POC Glucose 299 H 358 H Hemoglobin A1c 12.5 H 11/14/17 12:11 POC Glucose 257 H Hemoglobin A1c Assessment and Plan - Plan 47yo male with a PMHX for glaucoma in the right eye and poorly controlled diabetes type I with blood sugars routinely running in the 300s who presents to [facility] ED with complaints of decreased vision and headache. Acute CVA MRI brain +focal 7mm probable acute infarction in the mesial left temporal periventricular white matter Head CT neg MRA neck neg MRA head neg LDL 139, TG 222 ECHO EF 50-55% -Neurology following, appreciate assistance. Holter ordered. Hypercoagulable workup. Started on Lexapro, continue. Cleared to be discharged from neurologic standpoint. -neuro checks -continuous cardiac monitoring -give ASA and statin daily -PT/OT/ST - PT recommending PT at rehab, patient is self pay. Will increase PT to daily. -fall and seizure precautions Right eye glaucoma Decreased vision left eye MRI brain 4 mm region of abnormal signal corresponding in the posterior chamber of the right orbit in a configuration consistent with retinal detachment/ hemorrhage. This appears somewhat more prominent than prior CT examination of . Additionally, there is diffusely abnormal signal throughout the posterior and anterior chambers on the right which may reflect old blood products or interval treatment. -Evaluated by ophthalmology, appreciate assistance. Follow-up as outpatient for further imaging. Type I diabetes, poorly controlled HgbA1c 12.5 Patient noncompliance. Refusing Levemir this am. -Blood sugar still not well controlled. Increase Levemir to 12 units twice daily. Increase Aspart TIDAC to 6u. -Consult dietitian for diabetic education -Accu-Cheks and insulin sliding scale Diffuse body rash ?bedbugs -treat with application with permethrin and monitor for improvement DVT prophylaxis -bilateral SCD/YANELI hose Code Status: FULL Discussed Condition With: patient, sister, Dr. Coker, nursing staff, PT Discharge Planning: Not ready for discharge. PT recommending rehab due to inability to maintain static standing, extremely poor balance. Patient has 16 stairs to climb to reach his apt.
--- NOTE | 2017-11-14 17:18 | P.DIET ---
Nutritional Evaluation Type of nutrition evaluation: initial [place] [facility] [place]: [place] [facility] [place] Education; poorly controlled diabetic Subjective Subjective Comments: Pt and Pt's sister Ifeoma in room when visited. Pt's sister Ifeoma is pt's fly winder, including his meal preparation. Pt is visually impaired and verbally requests that the diet education handouts be given to his sister Ifeoma. Pt listening to information provided; however, he verbally expresses that he is frustrated w/his poorly controlled blood sugar and that he is on isolation for bedbugs. Objective - Diagnosis Cephalgia, Hyperglycemia - Objective [place] body weight: 78.2 kg % IBW: 157 Dietitian Reviewed in Medical Record: Current diet, Curent medications, Labs, Medical history Diet Order: 1800ADA Objective Comments: PMH Includes: Diabetes Type 1, Glaucoma, Neuropathy, Retinopathy A1C 12.5, POC Glucose 303 Assessment Assessment: Pt and Pt's sister, Ifeoma, provided w/diet education for 1800ADA and CHO- counting. Pt's sister Ifeoma is pt's fly winder and prepares his meals. Pt and his sister's questions answered to their satisfaction. RD contact info provided for additional questions as needed. Pt would benefit from a life skills educator consult. Recommendations: 1. Diet education for 1800ADA and CHO-counting provided 2. Pt's sister Ifeoma is pt's fly winder and prepares his meals 3. Pt and his sister's questions answered to their satisfaction 4. RD contact info provided for additional questions as needed 5. Pt would benefit from a life skills educator consult
[2017-11-14] MEDS ORDERED: ALPRAZolam 0.5 MG Tablet PO ONE (19:51)
[2017-11-14] MEDS: Acetaminophen 325 MG Tablet PO PRN (21:48)
[2017-11-15] MEDS: Sod Chloride 0.9% Inj 1,000 ML IV.CONT SCH ×2 (00:28→12:22)
[2017-11-15] MEDS: Acetaminophen 325 MG Tablet PO PRN ×4 (04:48→22:15)
[2017-11-15] MEDS: Aspirin 325 MG Tablet PO SCH (08:47)
[2017-11-15] MEDS: Lisinopril 5 MG Tablet PO SCH (08:47)
[2017-11-15] MEDS: Escitalopram 10 MG Tablet PO SCH (08:48)
[2017-11-15] MEDS: Insulin NovoLIN Regular Correctional Sugar Inj SQ SCH ×4 (08:48→22:26)
[2017-11-15] MEDS: Insulin Detemir Inj 1,000 UNIT/10 ML Vial SQ SCH ×2 (08:49→22:25)
[2017-11-15] MEDS: Senna/Docusate Sodium 8.6/50 MG Tablet PO SCH ×2 (08:49→22:26)
--- NOTE | 2017-11-15 11:12 | P.PN ---
Subjective Interval history: Patient is seen sitting up eating breakfast. He tells me that he is feels weak. Continues to complain of pain however this is chronic. No new developing weakness. No changes from baseline vision. No dizziness or syncope. Denies chest pain or shortness of breath. Denies nausea vomiting or diarrhea. He is tolerating his meals well. Physical Exam Vital signs: Vital Signs 11/14/17 12:00 11/14/17 13:04 11/14/17 16:00 Temperature 98.6 F 97.5 F L Pulse Rate 82 92 H 92 H Respiratory Rate 16 20 Blood Pressure 135/71 152/90 H Pulse Oximetry 96 98 11/14/17 20:00 11/15/17 00:00 11/15/17 04:00 Temperature 98.1 F 98.1 F 97.6 F Pulse Rate 83 82 81 Respiratory Rate 18 18 18 Blood Pressure 114/60 137/81 114/64 Pulse Oximetry 97 98 96 11/15/17 04:20 11/15/17 08:00 11/15/17 09:36 Temperature 97.7 F Pulse Rate 79 90 Respiratory Rate 18 16 Blood Pressure 143/83 H Pulse Oximetry 97 Intake & Output 11/14/17 11/15/17 11/15/17 18:59 06:59 18:59 Output Total 2 / 2 Balance -2 / -2 Weight 105.3 kg Output: Urine 2 / 2 Other: # Voids 3 3 Date of Last Bowel Movement 11/13/17 11/15/17 Narrative: GENERAL: WDWN male patient, in no acute distress. SKIN: Warm and dry. Diffuse erythematous papular rash, improving. HEAD: Atraumatic. Normocephalic. EYES: Right eye cloudy. Left pupil 2mm and reactive. CARDIOVASCULAR: Regular rate and rhythm. RESPIRATORY: No accessory muscle use. Clear to auscultation. Breath sounds equal bilaterally. GASTROINTESTINAL: Abdomen soft, non-tender, nondistended. +BS. MUSCULOSKELETAL: Extremities without clubbing, cyanosis, or edema. No obvious deformities. NEUROLOGICAL: Awake and alert. No obvious cranial nerve deficits. Noted to have some weakness bilaterally upper and lower extremities; equal side to side.. Able to move all extremities spontaneously. Normal speech. PSYCHIATRIC: Calm and cooperative. Results - Labs CBC & Chem 7: 11/13/17 04:48 11/13/17 04:48 Laboratory Results - last 24 hr 11/12/17 11/14/17 11/14/17 20:50 12:11 16:30 POC Glucose 257 H 303 H RPR Nonreactive 11/14/17 11/15/17 21:53 08:29 POC Glucose 295 H 289 H RPR Assessment and Plan - Plan 47yo male with a PMHX for glaucoma in the right eye and poorly controlled diabetes type I with blood sugars routinely running in the 300s who presents to [facility] ED with complaints of decreased vision and headache. Acute CVA MRI brain +focal 7mm probable acute infarction in the mesial left temporal periventricular white matter Head CT neg; MRA neck neg; MRA head neg LDL 139, TG 222 ECHO EF 50-55% -Neurology following, appreciate assistance. Holter w/ no acute abnormality. Hypercoagulable workup; results pending. Started on Lexapro, continue. Cleared to be discharged from neurologic standpoint. -neuro checks -continuous cardiac monitoring -give ASA and statin daily -PT/OT/ST - PT recommending PT at rehab, patient is self pay. Will increase PT to daily. -fall and seizure precautions Right eye glaucoma Decreased vision left eye MRI brain 4 mm region of abnormal signal corresponding in the posterior chamber of the right orbit in a configuration consistent with retinal detachment/ hemorrhage. This appears somewhat more prominent than prior CT examination of . Additionally, there is diffusely abnormal signal throughout the posterior and anterior chambers on the right which may reflect old blood products or interval treatment. -Evaluated by ophthalmology, appreciate assistance. Follow-up as outpatient for further imaging. Type I diabetes, poorly controlled HgbA1c 12.5 Patient noncompliance. Refusing Levemir this am. -Blood sugar still not well controlled. Increase Levemir to 12 units twice daily. Increase Aspart TIDAC to 6u. -Consult dietitian for diabetic education -Accu-Cheks and insulin sliding scale -Education provided on the importance of compliance with medical plan. Patient made aware that uncontrolled diabetes could result in possible heart attack, kidney failure, stroke and/or even . Indicates understanding but seems uninterested. Diffuse body rash ?bedbugs -ordered permethrin and monitor for improvement -patient refusing to use DVT prophylaxis -bilateral SCD/YANELI hose Code Status: FULL Discussed Condition With: patient, Dr. Kebede, nursing staff, PT Discharge Planning: Medically stable for discharge. PT recommendations appreciated. Patient has 16 stairs to climb to reach his apt.
--- NOTE | 2017-11-15 15:09 | HM ---
Date Performed: 11/13/2017 Time Performed: 18:01:00 HOOKUP DATE: 11/13/17 06:01:00 PM Sat ANALYSIS START TIME: 11/13/2017 6:06:00 PM ANALYSIS END TIME: 11/14/2017 2:48:00 PM PATIENT AGE: 47 PATIENT HEIGHT PATIENT WEIGHT DRUG LIST PATIENT DIAGNOSIS: WEAKNESS CEPHALGIA HYPERGLYCEMIA TEST NARRATIVE: The patient's average heart rate was 91 BPM. No episodes of tachycardia wer e noted. No episodes of bradycardia were noted. No pauses exceeding 2.0 seconds were noted. 143 ventricular ectopics, which represented < 1% of the total beat count, were noted. The highest ve ntricular ectopic frequency occurred from 06:00 AM to 07:00 AM Sun. During this time 28 VE(s) occurr ed. Ventricular ectopics were observed as 143 isolated beat(s) only. No couplets or runs were noted . 50 supraventricular ectopics, which represented < 1% of the total beat count, were noted. The highest supraventricular ectopic frequency occurred from 08:00 AM to 09:00 AM Sun. During this time 12 SVE(s) occurred. No episodes of ST depression (defined as -1.0 mm or more) were noted in chann el 1. No episodes of ST depression (defined as -1.0 mm or more) were noted in channel 2. No episode s of ST depression (defined as -1.0 mm or more) were noted in channel 3. PT DIARY WAS NOT RETURNED [facility] HOLTER MONITOR TEST INTERPRETATION: The Patient was monitored for 24 hours. The mininmum heart rate 74bpm, max imum heart rate 118bpm and average heart rate of 91bpm. There were 50 PAC's and 143 PVC's. There was no significant atrial fibrillation or significant arrhythmias Signed by : Melanie Brice
[2017-11-15 16:06] LABS: Anti-Nuclear Antibody Screen Neg (Neg)
[2017-11-16] MEDS: Acetaminophen 325 MG Tablet PO PRN ×3 (03:40→19:19)
[2017-11-16] MEDS: Sod Chloride 0.9% Inj 1,000 ML IV.CONT SCH ×2 (03:59→18:04)
[2017-11-16] MEDS: Aspirin 325 MG Tablet PO SCH (08:56)
[2017-11-16] MEDS: Lisinopril 5 MG Tablet PO SCH (08:57)
[2017-11-16] MEDS: Escitalopram 10 MG Tablet PO SCH (08:57)
[2017-11-16] MEDS: Senna/Docusate Sodium 8.6/50 MG Tablet PO SCH ×2 (08:57→21:40)
[2017-11-16] MEDS: Insulin Detemir Inj 1,000 UNIT/10 ML Vial SQ SCH ×2 (08:58→21:40)
[2017-11-16] MEDS: Insulin NovoLIN Regular Correctional Sugar Inj SQ SCH ×4 (08:58→21:41)
--- NOTE | 2017-11-16 12:56 | P.PN ---
Subjective Interval history: Follow-up on patient with CVA. Patient seen and examined. Patient states he is doing okay. He reports chronic pain. He complains of increased numbness and tingling in his hands and feet. He is not currently taking any gabapentin. States his vision is decreased but unchanged. No headache, dizziness or lightheadedness. He denies any chest pain or shortness of breath. Denies any nausea, vomiting or abdominal pain. Physical Exam Vital signs: Vital Signs 11/15/17 16:00 11/15/17 20:00 11/16/17 00:00 Temperature 98.0 F 97.9 F 98.2 F Pulse Rate 86 91 H 100 H Respiratory Rate 16 18 18 Blood Pressure 126/62 132/98 H 104/76 Pulse Oximetry 98 97 95 11/16/17 04:00 11/16/17 08:00 11/16/17 09:00 Temperature 97.8 F 97.6 F Pulse Rate 87 91 H 93 H Respiratory Rate 18 20 Blood Pressure 135/76 127/73 Pulse Oximetry 99 98 11/16/17 12:00 11/16/17 12:43 Temperature 98 F Pulse Rate 99 H 93 H Respiratory Rate 20 Blood Pressure 119/74 Pulse Oximetry 97 Intake & Output 11/15/17 11/16/17 11/16/17 18:59 06:59 18:59 Intake Total 600 / 600 Balance 600 / 600 Weight 105.3 kg Intake: Oral 600 / 600 Other: # Voids 3 3 Date of Last Bowel Movement 11/15/17 11/15/17 # Bowel Movements 1 Narrative: GENERAL: WDWN male patient, in no acute distress. Awake and alert. SKIN: Warm and dry. Diffuse erythematous papular rash, improving. HEAD: Atraumatic. Normocephalic. EYES: Right eye cloudy. Left pupil 2mm and reactive. ENT: No nasal bleeding or discharge. Mucous membranes pink and moist. NECK: Trachea midline. CARDIOVASCULAR: Regular rate and rhythm. No murmur auscultated. RESPIRATORY: No accessory muscle use. Clear to auscultation. Breath sounds equal bilaterally. GASTROINTESTINAL: Abdomen soft, non-tender, nondistended. +BS. MUSCULOSKELETAL: Extremities without clubbing, cyanosis, or edema. No obvious deformities. Reports subjective numbness and tingling bilateral hands and feet. NEUROLOGICAL: Awake and alert. No obvious cranial nerve deficits. Mild upper and lower extremity weakness bilaterally. Able to move all extremities spontaneously. Normal speech. PSYCHIATRIC: Calm and cooperative. Results - Labs CBC & Chem 7: 11/13/17 04:48 11/13/17 04:48 Laboratory Results - last 24 hr 11/12/17 11/15/17 11/15/17 20:50 16:53 22:05 POC Glucose 281 H 245 H MUNDO Screen Neg 11/16/17 11/16/17 07:41 12:19 POC Glucose 206 H 274 H MUNDO Screen Assessment and Plan - Plan 47yo male with a PMHX for glaucoma in the right eye and poorly controlled diabetes type I with blood sugars routinely running in the 300s who presents to [facility] ED with complaints of decreased vision and headache. Acute CVA MRI brain +focal 7mm probable acute infarction in the mesial left temporal periventricular white matter Head CT neg MRA neck neg MRA head neg LDL 139, TG 222 ECHO EF 50-55% -Neurology following, appreciate assistance. Holter ordered. Hypercoagulable workup. Started on Lexapro, continue. Cleared to be discharged from neurologic standpoint. -neuro checks -continuous cardiac monitoring -give ASA and statin daily -PT/OT/ST - PT recommending PT at rehab, patient is self pay. PT daily, specifically with emphasis on stair training. Patient has 16 steps to go up to reach his apartment. Per today's PT note, patient is not safe to be discharged home at this time. -fall and seizure precautions Right eye glaucoma Decreased vision left eye MRI brain 4 mm region of abnormal signal corresponding in the posterior chamber of the right orbit in a configuration consistent with retinal detachment/ hemorrhage. This appears somewhat more prominent than prior CT examination of . Additionally, there is diffusely abnormal signal throughout the posterior and anterior chambers on the right which may reflect old blood products or interval treatment. -Evaluated by ophthalmology, appreciate assistance. Follow-up as outpatient for further imaging. Type I diabetes, poorly controlled HgbA1c 12.5 Patient noncompliance. -Blood sugar still not well controlled. Increase Levemir to 15 units twice daily. Increase Aspart TIDAC to 8u. -Consult dietitian for diabetic education -Accu-Cheks and insulin sliding scale -Patient counseled multiple times regarding the importance of blood sugar control and the deleterious effects associated with uncontrolled diabetes. Numbness/tingling bilateral hands and feet, suspect secondary to diabetic neuropathy -Begin Gabapentin 300mg TID, titrate as indicated Diffuse body rash ?bedbugs -treat with application with permethrin and monitor for improvement, patient refused. Rash improving. DVT prophylaxis -bilateral SCD/YANELI hose Code Status: FULL Discussed Condition With: patient, nursing staff Discharge Planning: Not ready for discharge. PT recommending rehab due to inability to maintain static standing, extremely poor balance. Patient has 16 stairs to climb to reach his apt.
[2017-11-16] MEDS: Gabapentin 300 MG Capsule PO SCH ×2 (14:30→18:04)
[2017-11-16 23:53] LABS: Homocysteine (Cardiovascular) 7.1 umol/L (<11.4)
[2017-11-17] MEDS: Acetaminophen 325 MG Tablet PO PRN (06:02)
--- NOTE | 2017-11-17 07:19 | P.PN ---
Subjective Interval history: Follow-up on patient with CVA. Patient seen and examined. Patient says he feels alright. He says he got a good nights sleep. He complains of chronic daily headache. He denies any new complaints. He still has numbness and tingling in the hands and feet. He says his vision is no better and no worse. He was able to walk up 2 steps with PT yesterday. He denies any chest pain or shortness of breath. Denies any nausea, vomiting or abdominal pain. His blood sugar was 170 this am. Physical Exam Vital signs: Vital Signs 11/16/17 08:00 11/16/17 09:00 11/16/17 12:00 Temperature 97.6 F 98 F Pulse Rate 91 H 93 H 99 H Respiratory Rate 20 20 Blood Pressure 127/73 119/74 Pulse Oximetry 98 97 11/16/17 12:43 11/16/17 16:00 11/16/17 20:00 Temperature 98.4 F 97.9 F Pulse Rate 93 H 88 86 Respiratory Rate 20 18 Blood Pressure 117/63 124/76 Pulse Oximetry 98 97 11/17/17 00:00 11/17/17 04:00 Temperature 97.8 F 98 F Pulse Rate 90 96 H Respiratory Rate 18 16 Blood Pressure 127/78 110/61 Pulse Oximetry 97 97 Intake & Output 11/16/17 11/17/17 11/17/17 18:59 06:59 18:59 Intake Total 620 / 620 300 / 300 Output Total 9 / 9 Balance 611 / 611 300 / 300 Intake: Oral 620 / 620 300 / 300 Output: Urine 8 / 8 Stool / Other: # Voids 1 3 Date of Last Bowel Movement 11/16/17 11/16/17 # Bowel Movements 1 0 Narrative: GENERAL: WDWN male patient, in no acute distress. Patient encountered sitting up on side of bed ordering breakfast. He is awake and alert. Looks better today. SKIN: Warm and dry. Diffuse erythematous papular rash, nearly resolved. HEAD: Atraumatic. Normocephalic. EYES: Right eye cloudy. Left pupil 2mm and reactive. ENT: No nasal bleeding or discharge. Mucous membranes pink and moist. NECK: Trachea midline. CARDIOVASCULAR: Regular rate and rhythm. No murmur auscultated. RESPIRATORY: No accessory muscle use. Clear to auscultation. Breath sounds equal bilaterally. GASTROINTESTINAL: Abdomen soft, non-tender, nondistended. +BS. MUSCULOSKELETAL: Extremities without clubbing, cyanosis, or edema. No obvious deformities. Reports subjective numbness and tingling bilateral hands and feet. NEUROLOGICAL: Awake and alert. No obvious cranial nerve deficits. Mild upper and lower extremity weakness bilaterally. Able to move all extremities spontaneously. Normal speech. PSYCHIATRIC: Calm and cooperative. Results - Labs CBC & Chem 7: 11/13/17 04:48 11/13/17 04:48 Laboratory Results - last 24 hr 11/12/17 11/16/17 11/16/17 20:50 07:41 12:19 POC Glucose 206 H 274 H Homocysteine Cardiovas 7.1 11/16/17 11/16/17 17:05 20:42 POC Glucose 253 H 251 H Homocysteine Cardiovas Assessment and Plan - Plan 47yo male with a PMHX for glaucoma in the right eye and poorly controlled diabetes type I with blood sugars routinely running in the 300s who presents to [facility] ED with complaints of decreased vision and headache. Acute CVA MRI brain +focal 7mm probable acute infarction in the mesial left temporal periventricular white matter Head CT neg, MRA neck neg, MRA head neg LDL 139, TG 222 ECHO EF 50-55% -Neurology following, appreciate assistance. Holter ordered. Hypercoagulable workup. Started on Lexapro, continue. Cleared to be discharged from neurologic standpoint. -neuro checks -continue ASA and statin daily -PT/OT/ST - PT recommending PT at rehab, patient is self pay. PT daily, specifically with emphasis on stair training. Patient has 16 steps to go up to reach his apartment. Per PT note, patient is not safe to be discharged home at this time. -fall and seizure precautions Right eye glaucoma Decreased vision left eye MRI brain 4 mm region of abnormal signal corresponding in the posterior chamber of the right orbit in a configuration consistent with retinal detachment/ hemorrhage. This appears somewhat more prominent than prior CT examination of . Additionally, there is diffusely abnormal signal throughout the posterior and anterior chambers on the right which may reflect old blood products or interval treatment. -Evaluated by ophthalmology, appreciate assistance. Follow-up as outpatient for further imaging. Type I diabetes, poorly controlled HgbA1c 12.5 Patient noncompliance. -Blood sugar better this am at 170. Continue Levemir 15 units twice daily. Continue Aspart TIDAC to 8u. -Consult dietitian for diabetic education -Accu-Cheks and insulin sliding scale -Patient counseled multiple times regarding the importance of blood sugar control and the deleterious effects associated with uncontrolled diabetes. Numbness/tingling bilateral hands and feet, suspect secondary to diabetic neuropathy -11/16 started on Gabapentin 300mg TID, titrate as indicated Diffuse body rash, nearly resolved ?bedbugs -treat with application with permethrin and monitor for improvement, patient refused. Rash improving. Chronic daily headache -trial of Fioricet DVT prophylaxis -bilateral SCD/YANELI hose Code Status: FULL Discussed Condition With: patient, nursing staff Discharge Planning: Not ready for discharge. PT recommending rehab due to inability to maintain static standing, extremely poor balance. Patient has 16 stairs to climb to reach his apt. ?[facility] bed at [place]. CM assisting with discharge.
[2017-11-17] MEDS: Sod Chloride 0.9% Inj 1,000 ML IV.CONT SCH (08:56)
[2017-11-17] MEDS: Gabapentin 300 MG Capsule PO SCH ×3 (08:57→18:25)
[2017-11-17] MEDS: Lisinopril 5 MG Tablet PO SCH (08:57)
[2017-11-17] MEDS: Escitalopram 10 MG Tablet PO SCH (08:57)
[2017-11-17] MEDS: Aspirin 325 MG Tablet PO SCH (08:58)
[2017-11-17] MEDS: Insulin Detemir Inj 1,000 UNIT/10 ML Vial SQ SCH ×2 (10:19→21:33)
[2017-11-17] MEDS: Insulin NovoLIN Regular Correctional Sugar Inj SQ SCH ×4 (10:19→21:33)
[2017-11-17] MEDS: Senna/Docusate Sodium 8.6/50 MG Tablet PO SCH ×2 (10:19→21:33)
[2017-11-17] MEDS: Butalbital/APAP/Caff 50/325/40 MG Tablet PO PRN ×2 (12:53→18:55)
[2017-11-17 13:52] LABS: Dil Russell Viper Venom Conf ( POSITIVE (NEGATIVE); Dil Russell Viper Venom Time M CORRECTED (CORRECTED); Lupus Anticoagulant PTT Screen 34 seconds (< OR = 40)
[2017-11-18] MEDS: Butalbital/APAP/Caff 50/325/40 MG Tablet PO PRN ×3 (01:30→18:10)
[2017-11-18 03:49] LABS: Activated Protein C Resistance 4.6 ratio (> OR = 2.1)
--- NOTE | 2017-11-18 07:46 | P.PN ---
Subjective Interval history: Follow-up on patient with CVA. Patient seen and examined. Patient says he is "hanging in there". He still has significant numbness and tingling type pain in his hands and feet. He denies any dizziness, lightheadedness or changes in vision. He denies any chest pain or dyspnea. He denies any N/V or abdominal pain. He says his headaches are better with Fioricet. Physical Exam Vital signs: Vital Signs 11/17/17 08:00 11/17/17 12:00 11/17/17 16:00 Temperature 98.7 F 97.7 F 97.6 F Pulse Rate 83 88 90 Respiratory Rate 18 18 18 Blood Pressure 121/77 118/72 133/79 Pulse Oximetry 95 96 97 11/17/17 19:30 11/18/17 00:00 11/18/17 02:30 Temperature 98.3 F 98.2 F Pulse Rate 85 85 Respiratory Rate 18 18 18 Blood Pressure 107/70 132/80 Pulse Oximetry 97 96 11/18/17 04:00 Temperature 97.7 F Pulse Rate 81 Respiratory Rate 18 Blood Pressure 121/64 Pulse Oximetry 96 Intake & Output 11/17/17 11/18/17 11/18/17 18:59 06:59 18:59 Intake Total 890 / 890 Balance 890 / 890 Weight 104 kg Intake: Oral 890 / 890 Other: # Voids 4 2 Date of Last Bowel Movement 11/17/17 # Bowel Movements 1 Narrative: GENERAL: WDWN male patient, in no acute distress. He is awake and alert. SKIN: Warm and dry. Diffuse erythematous papular rash, nearly resolved. HEENT: Atraumatic. Normocephalic. Right eye cloudy. Left pupil 2mm and reactive. No nasal bleeding or discharge. Mucous membranes pink and moist. NECK: Trachea midline. CARDIOVASCULAR: Regular rate and rhythm. No murmur auscultated. RESPIRATORY: No accessory muscle use. Clear to auscultation. Breath sounds equal bilaterally. GASTROINTESTINAL: Abdomen soft, non-tender, nondistended. +BS. MUSCULOSKELETAL: Extremities without clubbing, cyanosis, or edema. No obvious deformities. Reports subjective numbness and tingling bilateral hands and feet. NEUROLOGICAL: Awake and alert. No obvious cranial nerve deficits. Mild upper and lower extremity weakness bilaterally. Able to move all extremities spontaneously. Normal speech. PSYCHIATRIC: Calm and cooperative. Results - Labs CBC & Chem 7: 11/13/17 04:48 11/13/17 04:48 Laboratory Results - last 24 hr 11/12/17 11/12/17 11/13/17 20:50 20:50 04:48 Thrombin Time ND Lupus Anticoagulant LA PTT Screen 34 dRVVT Screen 46 H LA dRVVT Confirm Positive A dRVVT Mix Corrected Hexagonal Phase Confirm ND APC Resistance 4.6 Antithrombin III Activ 124 H Factor VIII Activity 100 POC Glucose Thiamine 161 MTHFR Mutation Detect Prothrombin [id number] Mut 11/17/17 11/17/17 11/17/17 07:53 13:00 16:49 Thrombin Time Lupus Anticoagulant LA PTT Screen dRVVT Screen LA dRVVT Confirm dRVVT Mix Hexagonal Phase Confirm APC Resistance Antithrombin III Activ Factor VIII Activity POC Glucose 170 H 212 H 234 H Thiamine MTHFR Mutation Detect Prothrombin [id number] Mut 11/17/17 21:25 Thrombin Time Lupus Anticoagulant LA PTT Screen dRVVT Screen LA dRVVT Confirm dRVVT Mix Hexagonal Phase Confirm APC Resistance Antithrombin III Activ Factor VIII Activity POC Glucose 276 H Thiamine MTHFR Mutation Detect Prothrombin [id number] Mut Assessment and Plan - Plan 47yo male with a PMHX for glaucoma in the right eye and poorly controlled diabetes type I with blood sugars routinely running in the 300s who presents to [facility] ED with complaints of decreased vision and headache. Acute CVA MRI brain +focal 7mm probable acute infarction in the mesial left temporal periventricular white matter Head CT neg, MRA neck neg, MRA head neg LDL 139, TG 222 ECHO EF 50-55% -Neurology following, appreciate assistance. Holter ordered. Hypercoagulable workup. Started on Lexapro, continue. Cleared to be discharged from neurologic standpoint. -neuro checks -continue ASA and statin daily -PT/OT/ST - PT recommending PT at rehab, patient is self pay. PT daily, specifically with emphasis on stair training. Patient has 16 steps to go up to reach his apartment. Per PT note, patient is not safe to be discharged home at this time. -fall and seizure precautions Right eye glaucoma Decreased vision left eye MRI brain 4 mm region of abnormal signal corresponding in the posterior chamber of the right orbit in a configuration consistent with retinal detachment/ hemorrhage. This appears somewhat more prominent than prior CT examination of . Additionally, there is diffusely abnormal signal throughout the posterior and anterior chambers on the right which may reflect old blood products or interval treatment. -Evaluated by ophthalmology, appreciate assistance. Follow-up as outpatient for further imaging. Type I diabetes, poorly controlled HgbA1c 12.5 Patient noncompliance. Blood sugar running in mid to high 200s -Increase Levemir 17 units twice daily. Increase Aspart TIDAC to 10u. -Consult dietitian for diabetic education -Accu-Cheks and insulin sliding scale -Patient counseled multiple times regarding the importance of blood sugar control and the deleterious effects associated with uncontrolled diabetes. Numbness/tingling bilateral hands and feet, suspect secondary to diabetic neuropathy -11/16 started on Gabapentin 300mg TID, tolerating well. Still with significant N/T in bilateral hands and feet. Increase dose to 400mg TID. Diffuse body rash, nearly resolved ?bedbugs -treat with application with permethrin and monitor for improvement, patient refused. Rash improving. Chronic daily headache -trial of Fioricet, working well, continue Depression -continue on Lexapro DVT prophylaxis -bilateral SCD/YANELI hose Code Status: FULL Discussed Condition With: patient, nursing staff Discharge Planning: Not ready for discharge. PT recommending rehab due to inability to maintain static standing, extremely poor balance. Patient has 16 stairs to climb to reach his apt. ?[facility] bed at [place]. CM assisting with discharge.
[2017-11-18] MEDS: Aspirin 325 MG Tablet PO SCH (09:39)
[2017-11-18] MEDS: Lisinopril 5 MG Tablet PO SCH (09:39)
[2017-11-18] MEDS: Escitalopram 10 MG Tablet PO SCH (09:39)
[2017-11-18] MEDS: Gabapentin 300 MG Capsule PO SCH ×2 (09:40→13:46)
[2017-11-18] MEDS: Insulin Detemir Inj 1,000 UNIT/10 ML Vial SQ SCH ×2 (09:40→23:17)
[2017-11-18] MEDS: Insulin NovoLIN Regular Correctional Sugar Inj SQ SCH ×4 (09:41→23:23)
[2017-11-18] MEDS: Senna/Docusate Sodium 8.6/50 MG Tablet PO SCH ×2 (09:44→23:31)
[2017-11-18] MEDS: Gabapentin 400 MG Capsule PO SCH ×2 (18:11→18:32)
[2017-11-19] MEDS: Butalbital/APAP/Caff 50/325/40 MG Tablet PO PRN ×3 (06:21→23:13)
--- NOTE | 2017-11-19 07:26 | P.PN ---
Subjective Interval history: Follow-up on patient with CVA. Patient seen and examined. 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 Recommended he follow-up with one as outpatient. He is currently trying to get disability and has an upcoming hearing. He continues to have numbness and tingling in the hands and feet. He continues to have headaches although the Fioricet is helping. He reports mild dizziness earlier but this has resolved. He denies any fever or chills. Denies any chest pain or shortness of breath. Physical Exam Vital signs: Vital Signs 11/18/17 08:00 11/18/17 12:00 11/18/17 16:00 Temperature 97.2 F L 98.0 F 98.1 F Pulse Rate 80 76 82 Respiratory Rate 18 18 Blood Pressure 127/79 111/73 123/76 Pulse Oximetry 20 L 96 95 11/18/17 20:00 11/19/17 00:00 11/19/17 04:00 Temperature 98.8 F 98.1 F 98.0 F Pulse Rate 87 86 94 H Respiratory Rate 20 20 20 Blood Pressure 110/66 112/65 113/70 Pulse Oximetry 95 97 95 Intake & Output 11/18/17 11/19/17 11/19/17 18:59 06:59 18:59 Intake Total 860 / 860 Balance 860 / 860 Intake: Oral 860 / 860 Other: # Voids 3 Date of Last Bowel Movement 11/18/17 Narrative: GENERAL: WDWN male patient, in no acute distress. Awake and alert. SKIN: Warm and dry. D HEAD: Atraumatic. Normocephalic. EYES: Right eye cloudy. Left pupil 2mm and reactive. ENT: No nasal bleeding or discharge. Mucous membranes pink and moist. NECK: Trachea midline. CARDIOVASCULAR: Regular rate and rhythm. No murmur auscultated. RESPIRATORY: No accessory muscle use. Clear to auscultation. Breath sounds equal bilaterally. GASTROINTESTINAL: Abdomen soft, non-tender, nondistended. +BS. MUSCULOSKELETAL: Extremities without clubbing, cyanosis, or edema. No obvious deformities. Reports subjective numbness and tingling bilateral hands and feet. NEUROLOGICAL: Awake and alert. No obvious cranial nerve deficits. Mild upper and lower extremity weakness bilaterally. Able to move all extremities spontaneously. Normal speech. PSYCHIATRIC: Calm and cooperative. Results - Labs CBC & Chem 7: 11/13/17 04:48 11/13/17 04:48 Laboratory Results - last 24 hr 11/12/17 11/18/17 11/18/17 20:50 08:53 12:48 POC Glucose 212 H 198 H Beta-2-GPI IgG Ab <9 Beta-2-GPI IgA Ab <9 Beta-2-GPI IgM Ab <9 11/18/17 11/18/17 16:38 23:15 POC Glucose 211 H 316 H Beta-2-GPI IgG Ab Beta-2-GPI IgA Ab Beta-2-GPI IgM Ab Assessment and Plan - Plan 47yo male with a PMHX for glaucoma in the right eye and poorly controlled diabetes type I with blood sugars routinely running in the 300s who presents to [facility] ED with complaints of decreased vision and headache. Acute CVA MRI brain +focal 7mm probable acute infarction in the mesial left temporal periventricular white matter Head CT neg, MRA neck neg, MRA head neg LDL 139, TG 222 ECHO EF 50-55% -Neurology following, appreciate assistance. Holter ordered. Hypercoagulable workup. Started on Lexapro, continue. Cleared to be discharged from neurologic standpoint. -neuro checks -continue ASA and statin daily -PT/OT/ST - PT recommending PT at rehab, patient is self pay. PT daily, specifically with emphasis on stair training. Patient has 16 steps to go up to reach his apartment. Per PT note, patient is not safe to be discharged home at this time. -fall and seizure precautions Right eye glaucoma Decreased vision left eye MRI brain 4 mm region of abnormal signal corresponding in the posterior chamber of the right orbit in a configuration consistent with retinal detachment/ hemorrhage. This appears somewhat more prominent than prior CT examination of . Additionally, there is diffusely abnormal signal throughout the posterior and anterior chambers on the right which may reflect old blood products or interval treatment. -Evaluated by ophthalmology, appreciate assistance. Follow-up as outpatient for further imaging. Type I diabetes, poorly controlled HgbA1c 12.5 Patient noncompliance. -Blood sugar 274 this am. Increase Levemir to 18 units twice daily. Continue Aspart TIDAC 10u. -Accu-Cheks and insulin sliding scale -Patient counseled multiple times regarding the importance of blood sugar control and the deleterious effects associated with uncontrolled diabetes. Recommended endocrinology follow-up as outpatient. Numbness/tingling bilateral hands and feet, suspect secondary to diabetic neuropathy -11/16 started on Gabapentin 300mg TID. Still with significant numbness tingling both hands and feet. Dose increased to 400mg 3 times daily. Monitor response. Diffuse body rash, nearly resolved ?bedbugs -treat with application with permethrin and monitor for improvement, patient refused. Rash improving. Chronic daily headache -trial of Fioricet, continue DVT prophylaxis -bilateral SCD/YANELI hose Code Status: FULL Discussed Condition With: Patient, nursing staff Discharge Planning: Not ready for discharge. PT recommending rehab due to inability to maintain static standing, extremely poor balance. Patient has 16 stairs to climb to reach his apt. ?[facility] bed at [place]. CM assisting with discharge.
[2017-11-19] MEDS: Escitalopram 10 MG Tablet PO SCH (09:05)
[2017-11-19] MEDS: Aspirin 325 MG Tablet PO SCH (09:05)
[2017-11-19] MEDS: Gabapentin 400 MG Capsule PO SCH ×3 (09:06→18:41)
[2017-11-19] MEDS: Insulin Detemir Inj 1,000 UNIT/10 ML Vial SQ SCH ×2 (09:06→23:13)
[2017-11-19] MEDS: Senna/Docusate Sodium 8.6/50 MG Tablet PO SCH ×2 (09:06→23:19)
[2017-11-19] MEDS: Lisinopril 5 MG Tablet PO SCH (09:06)
[2017-11-19] MEDS: Insulin NovoLIN Regular Correctional Sugar Inj SQ SCH ×4 (09:07→23:14)
[2017-11-19 12:20] LABS: Factor V Leiden Mutation Negative (Negative); Protein C Antigen 153 % (70-150)
[2017-11-20] MEDS: Butalbital/APAP/Caff 50/325/40 MG Tablet PO PRN ×3 (06:30→23:16)
--- NOTE | 2017-11-20 07:19 | P.PN ---
Subjective Interval history: Follow-up on patient with CVA. Patient seen and examined. Patient says he feels a little better. He still has daily headache and numbness/tingling in his hands and feet. He feels he is getting stronger. He denies any chest pain or dyspnea. He denies any N/V or abdominal pain. He is not having any dizziness. Physical Exam Vital signs: Vital Signs 11/19/17 08:00 11/19/17 12:00 11/19/17 16:00 Temperature 97.5 F L 97.4 F L 97.6 F Pulse Rate 88 80 80 Respiratory Rate 18 Blood Pressure 140/78 115/73 110/66 Pulse Oximetry 97 96 97 11/19/17 20:00 11/20/17 00:00 11/20/17 04:00 Temperature 97.2 F L 98.0 F 97.6 F Pulse Rate 87 87 81 Respiratory Rate 18 Blood Pressure 118/67 105/65 108/60 Pulse Oximetry 97 96 98 Intake & Output 11/19/17 11/20/17 11/20/17 18:59 06:59 18:59 Intake Total 980 / 980 Balance 980 / 980 Weight 105 kg Intake: Oral 980 / 980 Other: # Voids 4 3 Date of Last Bowel Movement 11/18/17 11/20/17 # Bowel Movements 1 Narrative: GENERAL: WDWN male patient, in no acute distress. Awake and alert. Witnessed ambulating in his room, appears unsteady. SKIN: Warm and dry. HEENT: Atraumatic. Normocephalic. Right eye cloudy. Left pupil 2mm and reactive. No nasal bleeding or discharge. Mucous membranes pink and moist. NECK: Trachea midline. CARDIOVASCULAR: Regular rate and rhythm. No murmur auscultated. RESPIRATORY: No accessory muscle use. Clear to auscultation. Breath sounds equal bilaterally. GASTROINTESTINAL: Abdomen soft, non-tender, nondistended. +BS. MUSCULOSKELETAL: Extremities without clubbing, cyanosis, or edema. No obvious deformities. Reports subjective numbness and tingling bilateral hands and feet. NEUROLOGICAL: Awake and alert. No obvious cranial nerve deficits. Mild upper and lower extremity weakness bilaterally. Able to move all extremities spontaneously. Normal speech. PSYCHIATRIC: Calm and cooperative. Results - Labs CBC & Chem 7: 11/13/17 04:48 11/13/17 04:48 Laboratory Results - last 24 hr 11/12/17 11/19/17 11/19/17 20:50 08:40 11:07 Protein C Antigen 153 H Protein S Activity 124 Factor V Leiden Mutat Negative Factor V Leiden Interp . Fact V Leiden Review By See below POC Glucose 274 H 192 H Phosphatidylserine IgG Less than 10.0 Phosphatidylserine IgA Less than 20.0 Phosphatidylserine IgM Less than 25.0 Anti-Cardiolipin IgG Ab <9.4 Anti-Cardiolipin IgM Ab <9.4 11/19/17 11/19/17 11/20/17 17:21 22:56 06:11 Protein C Antigen Protein S Activity Factor V Leiden Mutat Factor V Leiden Interp Fact V Leiden Review By POC Glucose 186 H 274 H 175 H Phosphatidylserine IgG Phosphatidylserine IgA Phosphatidylserine IgM Anti-Cardiolipin IgG Ab Anti-Cardiolipin IgM Ab Assessment and Plan - Plan 47yo male with a PMHX for glaucoma in the right eye and poorly controlled diabetes type I with blood sugars routinely running in the 300s who presents to [facility] ED with complaints of decreased vision and headache. Acute CVA MRI brain +focal 7mm probable acute infarction in the mesial left temporal periventricular white matter Head CT neg, MRA neck neg, MRA head neg LDL 139, TG 222 ECHO EF 50-55% -Neurology following, appreciate assistance. Holter ordered. Hypercoagulable workup. Started on Lexapro, continue. Cleared to be discharged from neurologic standpoint. -neuro checks -continue ASA and statin daily -PT/OT/ST - PT recommending PT at rehab, patient is self pay. PT daily, specifically with emphasis on stair training. Patient has 16 steps to go up to reach his apartment. Per PT note, patient is not safe to be discharged home at this time. -fall and seizure precautions Right eye glaucoma Decreased vision left eye MRI brain 4 mm region of abnormal signal corresponding in the posterior chamber of the right orbit in a configuration consistent with retinal detachment/ hemorrhage. This appears somewhat more prominent than prior CT examination of . Additionally, there is diffusely abnormal signal throughout the posterior and anterior chambers on the right which may reflect old blood products or interval treatment. -Evaluated by ophthalmology, appreciate assistance. Follow-up as outpatient for further imaging. Type I diabetes, poorly controlled HgbA1c 12.5 Patient noncompliance. BS better this morning, 171,175 -Continue on Levemir 18 units twice daily. Continue Aspart TIDAC 10u. -Accu-Cheks and insulin sliding scale -Patient counseled multiple times regarding the importance of blood sugar control and the deleterious effects associated with uncontrolled diabetes. Recommended endocrinology follow-up as outpatient. Numbness/tingling bilateral hands and feet, suspect secondary to diabetic neuropathy -11/16 started on Gabapentin 300mg TID. Still with significant numbness tingling both hands and feet. Dose increased to 400mg 3 times daily. Monitor response. Diffuse body rash, nearly resolved ?bedbugs -treat with application with permethrin and monitor for improvement, patient refused. Rash resolved. Chronic daily headache -trial of Fioricet, continue DVT prophylaxis -bilateral SCD/YANELI hose Code Status: FULL Discussed Condition With: patient, nursing staff Discharge Planning: Not ready for discharge. PT recommending rehab due to inability to maintain static standing, extremely poor balance. Patient has 16 stairs to climb to reach his apt. ?[facility] bed at [place]. CM assisting with discharge.
[2017-11-20] MEDS: Senna/Docusate Sodium 8.6/50 MG Tablet PO SCH ×2 (08:24→23:12)
[2017-11-20] MEDS: Aspirin 325 MG Tablet PO SCH (08:24)
[2017-11-20] MEDS: Gabapentin 400 MG Capsule PO SCH ×3 (08:24→18:11)
[2017-11-20] MEDS: Escitalopram 10 MG Tablet PO SCH (08:24)
[2017-11-20] MEDS: Lisinopril 5 MG Tablet PO SCH (08:24)
[2017-11-20] MEDS: Insulin NovoLIN Regular Correctional Sugar Inj SQ SCH ×4 (10:03→23:12)
[2017-11-20] MEDS: Insulin Detemir Inj 1,000 UNIT/10 ML Vial SQ SCH ×2 (10:03→23:12)
[2017-11-21] MEDS: Butalbital/APAP/Caff 50/325/40 MG Tablet PO PRN ×2 (06:25→13:38)
--- NOTE | 2017-11-21 08:32 | P.PN ---
Subjective Interval history: Patient doing well overnight. Patient is tolerating p.o., and voiding/stooling well. No events per RN, no concerns Physical Exam Vital signs: Vital Signs 11/20/17 10:00 11/20/17 12:00 11/20/17 16:00 Temperature 97.8 F 97.6 F Pulse Rate 78 92 H Respiratory Rate 18 20 20 Blood Pressure 110/69 123/73 Pulse Oximetry 98 97 11/20/17 20:00 11/21/17 00:00 11/21/17 04:00 Temperature 97.7 F 98.3 F 98 F Pulse Rate 95 H 83 77 Respiratory Rate 18 18 18 Blood Pressure 131/63 129/78 122/74 Pulse Oximetry 97 96 97 Intake & Output 11/20/17 11/21/17 11/21/17 18:59 06:59 18:59 Intake Total 1659 / 1659 Balance 1659 / 1659 Weight 105 kg Intake: Oral 1658 / 1659 Other: # Voids 4 3 # Bowel Movements 1 Narrative: GENERAL: Obese male, in NAD, lying comfortably in bed SKIN: Warm and dry. HEENT: Normocephalic, atraumatic, PERRLA, MOM NECK: Trachea midline. CARDIOVASCULAR: Regular rate and rhythm. No murmurs, rubs, or gallops. RESPIRATORY: CTAx2 GASTROINTESTINAL: Abdomen soft, non-tender, nondistended. +BS. MUSCULOSKELETAL: Extremities without clubbing, cyanosis, or edema. No obvious deformities. NEUROLOGICAL: AAOx3, motor system intact PSYCHIATRIC: Calm and cooperative. Results - Labs CBC & Chem 7: 11/13/17 04:48 11/13/17 04:48 Laboratory Results - last 24 hr 11/20/17 11/20/17 11/20/17 11:57 16:59 23:11 POC Glucose 207 H 244 H 250 H 11/21/17 07:38 POC Glucose 188 H Assessment and Plan - Assessment (1) Severe nonproliferative diabetic retinopathy Code(s): E11.3499 - Type 2 diabetes mellitus with severe nonproliferative diabetic retinopathy without macular edema, unspecified eye Status: Acute - Plan 47 y/o CM with a PMHx of Glaucoma in the right eye and poorly controlled Diabetes Mellitus admitted for IP mgmt of acute CVA, HD#9 1. Acute CVA MRI brain +focal 7mm probable acute infarction in the mesial left temporal periventricular white matter Head CT neg, MRA neck neg, MRA head neg LDL 139 on admission ECHO EF 50-55% -Neurology following, appreciate assistance, Cleared to be discharged from neurologic standpoint. -neuro checks -continue ASA and statin daily -PT/OT/ST - PT recommending PT at rehab, patient is self pay. PT daily, specifically with emphasis on stair training. Patient has 16 steps to go up to reach his apartment. Per PT note, patient is not safe to be discharged home at this time. -fall and seizure precautions 2. Right eye glaucoma Decreased vision left eye MRI brain 4 mm region of abnormal signal corresponding in the posterior chamber of the right orbit in a configuration consistent with retinal detachment/ hemorrhage. This appears somewhat more prominent than prior CT examination of . Additionally, there is diffusely abnormal signal throughout the posterior and anterior chambers on the right which may reflect old blood products or interval treatment. -Evaluated by ophthalmology, appreciate assistance. Follow-up as outpatient for further imaging. 3. Type I Diabetes, poorly controlled HgbA1c 12.5% on 11/13 Patient noncompliant with diet BS 244, 250, 188 -Continue on Levemir, increase to 22U BID, cont. Aspart 10U premeal and SSI -Accu-Cheks and insulin sliding scale -Patient counseled multiple times regarding the importance of blood sugar control and the deleterious effects associated with uncontrolled diabetes. Recommended endocrinology follow-up as outpatient. -Cont. Gui for neuropathy, cont. MICK for renal protection 4. Chronic daily headache: Cont. Fioricet PRN 5. Anxiety/Depression Cont. Lexapro 6. DVT prophylaxis SCD/YANELI hose 7. DISPO: F/U BS, Levemir increased to 22 units twice daily Code Status: full Discussed Condition With: patient, RN
[2017-11-21] MEDS: Insulin NovoLIN Regular Correctional Sugar Inj SQ SCH ×4 (09:25→20:34)
[2017-11-21] MEDS: Insulin Detemir Inj 1,000 UNIT/10 ML Vial SQ SCH ×2 (09:26→20:33)
[2017-11-21] MEDS: Escitalopram 10 MG Tablet PO SCH (09:26)
[2017-11-21] MEDS: Gabapentin 400 MG Capsule PO SCH ×3 (09:26→18:38)
[2017-11-21] MEDS: Aspirin 325 MG Tablet PO SCH (09:26)
[2017-11-21] MEDS: Lisinopril 5 MG Tablet PO SCH (09:26)
[2017-11-21] MEDS: Senna/Docusate Sodium 8.6/50 MG Tablet PO SCH ×2 (09:26→20:35)
[2017-11-22] MEDS: Butalbital/APAP/Caff 50/325/40 MG Tablet PO PRN ×4 (03:11→23:18)
[2017-11-22] MEDS: Insulin Detemir Inj 1,000 UNIT/10 ML Vial SQ SCH ×2 (09:51→22:03)
[2017-11-22] MEDS: Gabapentin 400 MG Capsule PO SCH ×3 (09:55→17:07)
[2017-11-22] MEDS: Lisinopril 5 MG Tablet PO SCH (09:56)
[2017-11-22] MEDS: Aspirin 325 MG Tablet PO SCH (09:57)
[2017-11-22] MEDS: Escitalopram 10 MG Tablet PO SCH (09:57)
[2017-11-22] MEDS: Insulin NovoLIN Regular Correctional Sugar Inj SQ SCH ×4 (10:00→22:03)
[2017-11-22] MEDS: Senna/Docusate Sodium 8.6/50 MG Tablet PO SCH ×2 (10:01→22:05)
--- NOTE | 2017-11-22 12:15 | P.PN ---
Subjective Interval history: Follow-up visit CVA, DM type I. Patient seen and examined today. Reports he is doing well. No acute issues overnight. Patient states that at home he used to take regular insulin twice a day and also NPH twice a day supposedly. However, patient states that insulin has been very expensive for him and he is not able to do the NPH. Otherwise, denies pain and discomfort. Denies SOB/ dyspnea. Denies chest pain, palpitations, headaches, dizziness. Denies fevers, chills, n/v/d. Denies dysuria. Physical Exam Vital signs: Vital Signs 11/21/17 16:00 11/21/17 17:02 11/21/17 20:00 Temperature 97.9 F Pulse Rate 85 Respiratory Rate 20 Blood Pressure 102/78 112/70 116/65 Pulse Oximetry 93 L 11/22/17 00:00 11/22/17 04:00 11/22/17 08:00 Temperature 97.8 F 97.9 F 98.9 F Pulse Rate 92 H 70 82 Respiratory Rate 20 20 17 Blood Pressure 137/76 99/52 L 112/70 Pulse Oximetry 95 96 95 Intake & Output 11/21/17 11/22/17 11/22/17 18:59 06:59 18:59 Intake Total 480 / 480 Output Total 400 / 400 Balance 80 / 80 Intake: Oral 480 / 480 Output: Urine 400 / 400 Other: # Voids 3 Date of Last Bowel Movement 11/20/17 Narrative: GENERAL: Obese male, in NAD, lying comfortably in bed SKIN: Warm and dry. HEENT: Normocephalic, atraumatic, PERRLA, MOM NECK: Trachea midline. CARDIOVASCULAR: Regular rate and rhythm. No murmurs, rubs, or gallops. RESPIRATORY: CTAx2 GASTROINTESTINAL: Abdomen soft, non-tender, nondistended. +BS. MUSCULOSKELETAL: Extremities without clubbing, cyanosis, or edema. No obvious deformities. NEUROLOGICAL: AAOx3, motor system intact PSYCHIATRIC: Calm and cooperative. Results - Labs CBC & Chem 7: 11/13/17 04:48 11/13/17 04:48 Laboratory Results - last 24 hr 11/21/17 11/21/17 11/22/17 16:53 20:23 07:40 POC Glucose 284 H 252 H 178 H 11/22/17 11:37 POC Glucose 235 H Assessment and Plan - Assessment (1) Severe nonproliferative diabetic retinopathy Code(s): E11.3499 - Type 2 diabetes mellitus with severe nonproliferative diabetic retinopathy without macular edema, unspecified eye Status: Acute - Plan 47yo male with a PMHX for glaucoma in the right eye and poorly controlled diabetes type I with blood sugars routinely running in the 300s who presents to [facility] ED with complaints of decreased vision and headache. Acute CVA MRI brain +focal 7mm probable acute infarction in the mesial left temporal periventricular white matter Head CT neg, MRA neck neg, MRA head neg LDL 139, TG 222 ECHO EF 50-55% -Neurology following, appreciate assistance. Holter ordered. Hypercoagulable workup. Started on Lexapro, continue. Cleared to be discharged from neurologic standpoint. -neuro checks -continue ASA and statin daily -PT/OT/ST - PT recommending PT at rehab, patient is self pay. PT daily, specifically with emphasis on stair training. Patient has 16 steps to go up to reach his apartment. Per PT note, patient is not safe to be discharged home at this time. -fall and seizure precautions Right eye glaucoma Decreased vision left eye MRI brain 4 mm region of abnormal signal corresponding in the posterior chamber of the right orbit in a configuration consistent with retinal detachment/ hemorrhage. This appears somewhat more prominent than prior CT examination of . Additionally, there is diffusely abnormal signal throughout the posterior and anterior chambers on the right which may reflect old blood products or interval treatment. -Evaluated by ophthalmology, appreciate assistance. Follow-up as outpatient for further imaging. Type I diabetes, poorly controlled HgbA1c 12.5 Patient noncompliance. BS better this morning, 171,175 -Continue on Levemir 22 units twice daily. Continue Aspart TIDAC 10u. -Accu-Cheks and insulin sliding scale -Patient counseled multiple times regarding the importance of blood sugar control and the deleterious effects associated with uncontrolled diabetes. Recommended endocrinology follow-up as outpatient, may have insurance barrier. Does not follow-up with PCP. Will recommend [facility] versus other free clinics. -Patient will need to transition to NPH and regular insulin as Levemir would be too expensive without insurance coverage. Numbness/tingling bilateral hands and feet, suspect secondary to diabetic neuropathy -11/16 started on Gabapentin 300mg TID. Still with significant numbness tingling both hands and feet. Dose increased to 400mg 3 times daily. Monitor response. Diffuse body rash, nearly resolved ?bedbugs -treat with application with permethrin and monitor for improvement, patient refused. Rash resolved. Chronic daily headache -trial of Fioricet, continue DVT prophylaxis -bilateral SCD/YANELI hose Code Status: Full Code Discussed Condition With: Patient, nursing Discharge Planning: Not ready for discharge. PT recommending rehab due to inability to maintain static standing, extremely poor balance. Patient has 16 stairs to climb to reach his apt. ?[facility] bed at [place]. CM assisting with discharge.
[2017-11-23] MEDS: Butalbital/APAP/Caff 50/325/40 MG Tablet PO PRN (06:18)
[2017-11-23] MEDS: Lisinopril 5 MG Tablet PO SCH (08:24)
[2017-11-23] MEDS: Gabapentin 400 MG Capsule PO SCH ×2 (08:24→12:59)
[2017-11-23] MEDS: Aspirin 325 MG Tablet PO SCH (08:25)
[2017-11-23] MEDS: Escitalopram 10 MG Tablet PO SCH (08:26)
[2017-11-23] MEDS: Senna/Docusate Sodium 8.6/50 MG Tablet PO SCH (08:30)
[2017-11-23] MEDS: Insulin Detemir Inj 1,000 UNIT/10 ML Vial SQ SCH (08:32)
[2017-11-23] MEDS: Insulin NovoLIN Regular Correctional Sugar Inj SQ SCH ×2 (08:32→12:59)
[2017-11-23 08:37] VITALS: RESP 17
[2017-11-23] MEDS: Acetaminophen 325 MG Tablet PO PRN (09:58)
--- NOTE | 2017-11-23 10:07 | P.DS ---
Date of admission: 11/12/17 12:48 Primary care physician: No Primary Care Physician Attending physician on discharge: Myron Francisdaniivega Anticipated date of discharge: 11/23/17 Brief History from admission: This is a 47yo male with a PMHX for glaucoma in the right eye and poorly controlled diabetes type I with blood sugars routinely running in the 300s who presents to [facility] ED with complaints of decreased vision and headache. Patient is a poor historian and no family is at the bedside therefore history is obtained from the patient directly as well as review of electronic medical record. Patient states he began having a headache since yesterday. He denies any numbness/tingling, focal weakness, dizziness or lightheadedness. He denies any chest pain, palpitations or shortness of breath. He states he has had some nausea but denies any emesis. He denies any complaints of abdominal pain. Additionally, patient reports rash all over his body for unspecified period of time. He denies any associated pain/discomfort or itching. He denies any fever or chills. Per review of the EMR, patient's caregiver who is his sister states that he has been confused which is not his normal mental state. In the ED, head CT was negative. Chest x-ray shows no acute pulmonary disease. CBC is unremarkable and chemistry panel is significant only for elevated glucose of 324. Urine drug screen is negative. UA is significant for proteinuria and ketonuria. MRI brain reveals focal 7 mm probable acute infarction in the mesial left temporal periventricular white matter and findings consistent with right-sided retinal detachment/hemorrhage with abnormal signal throughout the orbit consistent with subacute/chronic blood products versus interval treatment. Patient was seen in February with complaints of dizziness and weakness in the upper and lower extremities that was felt likely secondary to BPPV. Patient update on day of discharge: Follow-up visit CVA, DM type I. Patient seen and examined today. Reports he is okay. No acute issues overnight. States that if he is going home today he wants to wait for his sister being off of work as he does not have any kids at home. Discussed medication recommendations. Compliance. Otherwise, denies pain and discomfort. Denies SOB/ dyspnea. Denies chest pain, palpitations, headaches, dizziness. Denies fevers, chills, n/v/d. Denies dysuria. DS: Diagnosis - Discharge Diagnosis (1) Severe nonproliferative diabetic retinopathy Status: Acute DS: Medications - Discharge Medications Prescriptions: aspirin 325 mg PO DAILY #30 tab atorvastatin 80 mg PO DAILY #30 tab sokrlwkogf-ruzzpjaapcxna-hjgr 1 tab PO Q6H PRN #15 tab PRN Reason: Headache cyanocobalamin (vitamin B-12) [Vitamin B-12] 1,000 mcg PO DAILY #30 tab escitalopram oxalate 10 mg PO DAILY #30 tab gabapentin [Neurontin] 400 mg PO TID #90 cap Humulin N NPH U-100 Insulin 30 units SUBCUT BID 30 Days Humulin R Regular U-100 Insuln 20 units SUBCUT TIDAC 30 Days lisinopril 5 mg PO DAILY #30 tab DS: Summary Hospital Course: 47yo male with a PMHX for glaucoma in the right eye and poorly controlled diabetes type I with blood sugars routinely running in the 300s who presents to [facility] ED with complaints of decreased vision and headache. Patient was found to have acute CVA. MRI of the brain positive for focal 7 mm probable acute infarction in the basal left temporal periventricular white matter. Initial head CT was negative, MRA of the neck is negative, MRA of the head is negative. Review of his lipid panel LDL is 139, triglycerides is 222. Echocardiogram was done with an EF of 50-55%. Neurology followed the patient and a Holter monitor was ordered. The also ordered hypercoagulable workup for him. Patient was started on Lexapro and he needs to continue until discharge. He has been cleared for discharge and neurology standpoint. Continue aspirin and statin use. Physical therapy has been working with the patient for stair training. He was also given exercises to practice for strengthening. Patient found to have right eye glaucoma with decreased vision also found on the left eye. MRI brain 4 mm region of abnormal signal corresponding in the posterior chamber of the right orbit in a configuration consistent with retinal detachment /hemorrhage. This appears somewhat more prominent than prior CT examination of . Additionally, there is diffusely abnormal signal throughout the posterior and anterior chambers on the right which may reflect old blood products or interval treatment. He was evaluated by adobe flex developer, Dr. Palacios and needs follow-up outpatient for further imaging. Patient has uncontrolled type 1 diabetes. States he has not been compliant with his medication secondary to unable to afford insulin. His hemoglobin A1c is 12.5. States that he has not been taking his NPH at home and has been reliant on occasional use of regular insulin. Patient counseled multiple times regarding blood sugar control and importance of taking his insulin as he is unable to produce. He has been transitioned to his NPH he was on Levemir while he was in the hospital. Patient also has diabetic neuropathy were and he was started on gabapentin 3 times daily. Patient has chronic headaches and trial of Fioricet was provided for him. He continues to improve physical therapy yesterday. Patient has met maximal benefits of hospitalization. Clinically stable for discharge. He is recommended for extensive physical therapy however due to insurance barriers patient will continue his exercises at home. Recommend to follow-up with PCP, other specialists that has been recommended. [employer] Prescription Drug Monitoring Database has been queried and verified prior to prescribing the controlled substance. - Time Spent with Patient Total time spent providing and/or coordinating discharge services: Less than 30 minutes - Quality: VTE Deep Vein Thrombosis/Pulmonary Embolism Present on Admission: No Exam Vital signs: Vital Signs 11/22/17 12:00 11/22/17 16:00 11/22/17 20:00 Temperature 98.3 F 98.8 F 98.3 F Pulse Rate 88 81 86 Respiratory Rate 16 18 18 Blood Pressure 93/64 L 105/65 123/65 Pulse Oximetry 96 94 L 98 11/23/17 00:00 11/23/17 04:00 11/23/17 08:00 Temperature 97.7 F 98.7 F 98.3 F Pulse Rate 89 84 86 Respiratory Rate 18 18 17 Blood Pressure 135/78 118/76 123/86 Pulse Oximetry 97 96 97 Intake & Output 11/22/17 11/23/17 11/23/17 18:59 06:59 18:59 Intake Total 960 / 960 Balance 960 / 960 Intake: Oral 960 / 960 Other: # Voids 4 4 Date of Last Bowel Movement 11/21/17 Narrative: GENERAL: Obese male, in NAD, lying comfortably in bed SKIN: Warm and dry. HEENT: Normocephalic, atraumatic, PERRLA, MOM NECK: Trachea midline. CARDIOVASCULAR: Regular rate and rhythm. No murmurs, rubs, or gallops. RESPIRATORY: CTAx2 GASTROINTESTINAL: Abdomen soft, non-tender, nondistended. +BS. MUSCULOSKELETAL: Extremities without clubbing, cyanosis, or edema. No obvious deformities. NEUROLOGICAL: AAOx3, motor system intact PSYCHIATRIC: Calm and cooperative. Results Procedures completed during hospitalization: None Labs on day of discharge: Labs from last 24 hours 11/23/17 11/22/17 11/22/17 07:35 21:55 16:02 POC Glucose 213 H 239 H 149 H 11/22/17 11:37 POC Glucose 235 H - Impressions ITS Impressions Head MRI 11/12/17 00:00 CONCLUSION: 1. Focal 7 mm probable acute infarction in the mesial left temporal periventricular white matter. 2. Findings consistent with right-sided retinal detachment/hemorrhage with abnormal signal throughout the orbit consistent with subacute/chronic blood products versus interval treatment. Clinical correlation is recommended. Head CT 11/12/17 03:48 CONCLUSION: Negative noncontrast head CT. . Chest X-Ray 11/12/17 07:14 CONCLUSION: 1. No acute cardiopulmonary disease. Head MRA 11/12/17 07:32 CONCLUSION: No acute intracranial vascular abnormality is identified. Neck MRA 11/12/17 07:32 CONCLUSION: 1. Negative MRA Carotids. Percent stenosis is calculated using the diameter of the stenotic region over the diameter of the normal distal internal carotid artery Discharge Plan - Discharge Disposition Patient Disposition: 01 Discharge Home - Discharge Condition Condition: Stable - Discharge Order Discharge Orders: Discharge Order (Routine); Ordered 11/23/17 Ordered By: Chico Singh - Discharge Details Anticipated Discharge Date: 11/13/17 Discharge Comment: Needs medication refill. Please FU with Case Management - Physicians Team Primary Care Provider: Primary Care Physici,No Attending Provider: Myron Hanks Other Providers: Erich Jeffries MD ; Cyndi Palacios MD
[2017-11-23 12:27] VITALS: BP 104/59; PULSE 76; TEMP 97.9; O2SAT 93
== END 2017-11-23 16:41 | disposition home or self-care (01) ==
LOC: NEDA 00:50 → NEDAMB 00:50 → NEDA 08:47 → NEPHCDU 08:49 → N05 11-14 15:46
PROVIDERS: ADMIT Internal Medicine; ATTEND Internal Medicine